=== PATIENT | female | born 1960 | race Caucasian/White ===

== ENCOUNTER 2016-11-30 21:09 | Emergency (ER) | payer MEDICARE, MEDICAID ==
--- NOTE | 2016-11-30 21:15 | ER Document Report ---
ED Medical Screen (RME) - General Stated Complaint: FLU LIKE SYMPTOMS Mode of Arrival: Ambulatory Notes: Patient presents with flulike symptoms for the past 2 days. Patient reports fever, chills, and cough. Patient's son here as a patient as well. hx: Asthma, depression, dyslipidemia I have greeted and performed a rapid initial assessment of this patient. A comprehensive ED assessment and evaluation of the patient, analysis of test results and completion of the medical decision making process will be conducted by additional ED providers. - Related Data Allergies/Adverse Reactions: Penicillins Allergy (Mild, Verified 11/30/16 21:13) Physical Exam - Respiratory Respiratory status: No respiratory distress Breath sounds: Normal
--- NOTE | 2016-12-01 01:07 | ER Document Report ---
ED Flu Like - General Chief Complaint: Flu Symptoms Stated Complaint: FLU LIKE SYMPTOMS Time seen by provider: 01:04 Mode of Arrival: Ambulatory Notes: 56-year-old female presents to ED for flulike symptoms for the past 2 days. She states she's felt like she had a fever but has not taken her temperature. She has had a cough runny nose and sore throat. TRAVEL OUTSIDE OF THE [place] IN LAST 30 DAYS: No - HPI Onset: Other - 2 days Quality of pain: Achy Severity: Moderate Pain Level: 3 Associated symptoms: Body/muscle aches, Chills, Nonproductive cough, Fever, Rhinnorhea, Sinus pain/drainage Similar symptoms previously: Yes Recently seen / treated by doctor: No - Related Data Allergies/Adverse Reactions: Penicillins Allergy (Mild, Verified 11/30/16 21:21) Past Medical History - General Information source: Patient - Social History Smoking Status: Former Smoker Cigarette use (# per day): No Chew tobacco use (# tins/day): No Smoking Education Provided: No Frequency of alcohol use: None Drug Abuse: None Occupation: no Lives with: Other - Some Family History: Arthritis, CAD, CVA, DM, Hyperlipidemia, Hypertension, Malignancy Patient has suicidal ideation: No Patient has homicidal ideation: No - Past Medical History Cardiac Medical History: Reports: Hx Hypercholesterolemia, Hx Hypertension Pulmonary Medical History: Reports: Hx Asthma, Hx Bronchitis EENT Medical History: Reports: None Neurological Medical History: Reports: None Endocrine Medical History: Reports: Other - Thyroid cancer and thyroid removed Renal/ Medical History: Reports: None Malignancy Medical History: Reports: Other - Thyroid GI Medical History: Reports: Hx Irritable Bowel, Hx Colonoscopy, Hx Endoscopy Musculoskeltal Medical History: Reports Hx Arthritis, Reports Hx Musculoskeletal Trauma - Fractured nose, Reports Other - Osteoporosis Skin Medical History: Reports None Psychiatric Medical History: Reports: Hx Anxiety, Hx Depression Traumatic Medical History: Reports: Hx Fractures - Nose Infectious Medical History: Reports: None Past Surgical History: Reports: Hx Section, Hx Tubal Ligation Review of Systems - Review of Systems Constitutional: Fever, Recent illness EENT: Nose discharge, Sinus discharge Cardiovascular: No symptoms reported Respiratory: Cough Gastrointestinal: No symptoms reported Genitourinary: No symptoms reported Female Genitourinary: No symptoms reported Musculoskeletal: No symptoms reported Skin: No symptoms reported Hematologic/Lymphatic: No symptoms reported Neurological/Psychological: No symptoms reported Physical Exam - Vital signs Vitals: Temp Pulse Resp BP Pulse Ox 97.5 F 85 20 104/66 98 11/30/16 21:16 11/30/16 21:16 11/30/16 21:16 11/30/16 21:16 11/30/16 21:16 Interpretation: Normal - General General appearance: Appears well, Alert - HEENT Head: Normocephalic, Atraumatic Eyes: Normal Pupils: PERRL Ears: Normal External canal: Normal Tympanic membrane: Normal Sinus: Normal Nasal: Purulent discharge, Swelling Mouth/Lips: Normal Mucous membranes: Normal Pharynx: Post nasal drainage Neck: Normal - Respiratory Respiratory status: No respiratory distress Chest status: Nontender Breath sounds: Nonproductive cough Chest palpation: Normal - Cardiovascular Rhythm: Regular Heart sounds: Normal auscultation Murmur: No - Abdominal Inspection: Normal Distension: No distension Bowel sounds: Normal Tenderness: Nontender Organomegaly: No organomegaly - Back Back: Normal, Nontender - Extremities General upper extremity: Normal inspection, Nontender, Normal color, Normal ROM , Normal temperature General lower extremity: Normal inspection, Nontender, Normal color, Normal ROM , Normal temperature, Normal weight bearing. No: Aguila's sign - Neurological Neuro grossly intact: Yes Cognition: Normal Orientation: AAOx4 [place] Coma Scale Eye Opening: Spontaneous Lul Coma Scale Verbal: Oriented [place] Coma Scale Motor: Obeys Commands [place] Coma Scale Total: 15 Speech: Normal Motor strength normal: LUE, RUE, LLE, RLE Sensory: Normal - Psychological Associated symptoms: Normal affect, Normal mood - Skin Skin Temperature: Warm Skin Moisture: Dry Skin Color: Normal Course - Re-evaluation Re-evalutation: 12/01/16 07:26 Assessment consistent with upper respiratory infection. Patient instructed to use all her Motrin and Coricidin for her cough - Vital Signs Vital signs: Temp Pulse Resp BP Pulse Ox 97.7 F 77 17 110/77 100 12/01/16 01:34 12/01/16 01:34 12/01/16 01:34 12/01/16 01:34 12/01/16 01:34 Discharge - Discharge Clinical Impression: Upper respiratory infection Qualifiers: URI type: unspecified URI Qualified Code(s): J06.9 - Acute upper respiratory infection, unspecified Condition: Stable Disposition: HOME, SELF-CARE Additional Instructions: UPPER RESPIRATORY ILLNESS: You have a viral infection of the respiratory passages -- a "cold." This common infection causes nasal congestion, drainage, and often sore throat and cough. It is highly contagious. The disease usually lasts about 10 to 14 days. There is no "cure" for the viral infection -- it must run its course. If there is a complication, such as bacterial infection in the nose, sinuses, middle ear, or bronchial tubes, antibiotics may be required. The antibiotics won't affect the virus. Drink plenty of fluids. A humidifier may help. An expectorant medication or decongestant may make you more comfortable. Use acetaminophen or ibuprofen for fever or aches. See the doctor if fever persists over two days, if there is any significant worsening of your symptoms, or if you simply fail to improve as expected. DECONGESTANT MEDICATION: A decongestant medicine has been suggested. Often this medicine is combined in the same tablet with an antihistamine or expectorant. This type of medicine is helpful in treating a bad cold or sinus condition, as well as in treatment of the nasal congestion of hay fever. It is not of much benefit for lung infections. Decongestant medicines are related to stimulants. They can cause an increase in blood pressure and heart rate. Persons with heart disease and high blood pressure should not take decongestants without discussing this with the physician. If you develop palpitations, chest pain, headache, or tremors, stop the medicine and consult your physician. COUGH-SUPPRESSANT & EXPECTORANT MEDICATION: You are to use a cough medication as needed for relief of symptoms. This medicine is a combination of an expectorant (to make the mucous thinner and more easily "coughed up") and a cough suppressant (to reduce the frequency of coughing). The cough-suppressant medicine is related to narcotics. You may experience mild nausea and sleepiness. Some patients who are very sensitive to narcotics may have stomach pain from this medicine. Taking the medicine with food reduces these side effects. Do not drive or work with machinery until you know how this medicine affects you. The expectorant should have no side effects. Iodine-containing expectorants (such as organidin) should not be taken by persons with active thyroid disease unless approved by your doctor. Call the doctor if you develop shortness of breath, hives, rash, itching, lightheadedness, or severe nausea and vomiting. USE OF ACETAMINOPHEN (Tylenol): Acetaminophen may be taken for pain relief or fever control. It's much safer than aspirin, offering a wider range of "safe" dosages. It is safe during . Some brand names are Tylenol, Panadol, Datril, Anacin 3, Tempra, and Liquiprin. Acetaminophen can be repeated every four hours. The following are maximum recommended dosages: >89 pounds or adults 650 mg to 900 mg Acetaminophen can be repeated every four hours. Maximum dose not to exceed 4000 mg a day. Ibuprofen Ibuprofen is an excellent, safe drug for pain control. In addition, it has potent antiinflammatory effects which are beneficial, especially in the treatment of injuries, arthritis, or tendonitis. It's best to take ibuprofen with food. Persons with ulcer disease or allergy to aspirin should notify their physician of this before taking ibuprofen. Take the medication exactly as prescribed. Don't take additional doses unless instructed to do so by your doctor. If you develop wheezing, shortness of breath, hives, faintness, stomach pain, vomiting, or dark black stools, return for re-evaluation at once. FOLLOW-UP CARE: If you have been referred to a physician for follow-up care, call the physician s office for an appointment as you were instructed or within the next two days. If you experience worsening or a significant change in your symptoms, notify the physician immediately or return to the Emergency Department at any time for re-evaluation. Referrals: BECCA MURCIA MD [Primary Care Provider] - Follow up as needed
[2016-12-01 01:35] VITALS: BP 110/77
== END 2016-12-01 01:33 | disposition home or self-care (01) ==
LOC: ER 21:09
DX: J06.9 Acute upper respiratory infection, unspecified (principal); J02.9 Acute pharyngitis, unspecified; R05 Cough; J34.89 Other specified disorders of nose and nasal sinuses; M79.1 Myalgia; R50.9 Fever, unspecified; J45.909 Unspecified asthma, uncomplicated; I10 Essential (primary) hypertension; Z88.0 Allergy status to penicillin; Z87.891 Personal history of nicotine dependence
CPT/HCPCS: 87070; 87804; 87880; 99283

== ENCOUNTER → 2017-02-05 | Outpatient (CLI) | payer MEDICARE, MEDICAID | LOC: OD 10:35 | PROVIDERS: ATTEND Nurse Practitioner | DX: E87.5 Hyperkalemia (principal) | CPT/HCPCS: 36415; 84132 ==

== ENCOUNTER → 2017-04-01 | Outpatient (CLI) | payer MEDICARE, MEDICAID ==
--- NOTE | 2017-04-07 15:37 | WOMENS IMAGING REPORT ---
EXAM DESCRIPTION: BILAT SCREENING MAMMO W/CAD COMPLETED DATE/TIME: 04/01/2017 11:05 am REASON FOR STUDY: ROUTINE SCREENING; Z12.31 Z12.31 ENCNTR SCREEN MAMMOGRAM FOR MALIGNANT NEOPLASM O F ANN COMPARISON: 04/01/2016 outside films TECHNIQUE: Standard craniocaudal and mediolateral oblique views of each breast recorded using [employer] acquisition. LIMITATIONS: None. FINDINGS: RIGHT BREAST MASSES: No suspicious masses. CALCIFICATIONS: No new or suspicious calcifications. ARCHITECTURAL DISTORTION: None. DEVELOPING DENSITY: None. ASYMMETRY: None noted. OTHER: No other significant findings. LEFT BREAST MASSES: No suspicious masses. CALCIFICATIONS: No new or suspicious calcifications. ARCHITECTURAL DISTORTION: None. DEVELOPING DENSITY: On left breast MLO view only, at the level of the nipple in the deep left breast near the pectoralis muscle, a 3 mm density is present which could represent superimposed shadows rath er than a true parenchymal nodule. No corresponding lesion on the CC view. Follow-up diagnostic boris ging with left breast 90 mediolateral view and left breast tomosynthesis in the CC and MLO orientati ons is recommended. If this finding persists, then ultrasound would be required for followup ASYMMETRY: None noted. OTHER: No other significant findings. Read with the assistance of CAD. .[facility] - R2 Cenova Version 1.3 .[facility] Imaging - R2 Cenova Version 1.3 .[facility] Imaging - R2 Cenova Version 2.4 .[facility] [place] - R2 Cenova Version 2.4 .[facility] - R2 [employer] Version 9.2 IMPRESSION: Left breast nodule versus superimposed shadows MLO view only for which left breast diagn ostic tomosynthesis and possible ultrasound recommended. No mammographic evidence for malignancy right breast BREAST DENSITY: b. There are scattered areas of fibroglandular density. BIRAD: 0 Incomplete: Needs Additional Imaging Evaluation and/or prior Mammograms for Comparison. RECOMMENDATION: RECOMMENDED FOLLOW-UP: Left breast diagnostic tomosynthesis and ultrasound The patient will be contacted for additional imaging. COMMENT: The patient has been notified of the results by letter per SA requirements. Additional no tification policies are in place for contacting patient with suspicious or incomplete findings. Quality ID #[id number]: The [employer] recommends an annual screening mammogram for women aged 40 years or over. This facility utilizes a reminder system to ensure that all patients receive reminder letters, and/or direct phone calls for appointments. This includes reminders for routine scr eening mammograms, diagnostic mammograms, or other Breast Imaging Interventions when appropriate. Th is patient will be placed in the appropriate reminder system. The [employer] (ACR) has developed recommendations for screening MRI of the breast s in certain patient populations, to be used in conjunction with mammography. Breast MRI surveillanc e may be appropriate for women with more than 20% lifetime risk of developing breast cancer as deter mined by genetic testing, significant family history of the disease, or history of mantle radiation f or Hodgkins Disease. ACR Practice Guidelines 2008. TECHNICAL DOCUMENTATION: FINDING NUMBER: (1) ASSESSMENT: (1) JOB ID: [id number] [employer]- All Rights Reserved
== END ==
LOC: WI 11:01
PROVIDERS: ATTEND Family Medicine
DX: Z12.31 Encounter for screening mammogram for malignant neoplasm of breast (principal)
CPT/HCPCS: 77067; G0202

== ENCOUNTER → 2017-04-22 | Outpatient (CLI) | payer MEDICARE, MEDICAID ==
--- NOTE | 2017-04-22 17:25 | WOMENS IMAGING REPORT ---
EXAM DESCRIPTION: LEFT DIAGNOSTIC MAMMO W/CAD COMPLETED DATE/TIME: 04/22/2017 1:31 pm REASON FOR STUDY: N63, BREAST LUMP N63 UNSPECIFIED LUMP IN BREAST COMPARISON: Left breast mammograms 04/01/2017 TECHNIQUE: Left breast cone compression in the mediolateral view, left whole breast 90 mediolateral view, left breast MLO and CC tomosynthesis views were obtained. LIMITATIONS: None. FINDINGS: BREAST: Left MASSES: No suspicious masses. Specifically, nodule versus superimposed shadows seen left breast MLO view only 04/01/2017 is no longer identified. CALCIFICATIONS: No new or suspicious calcifications. ARCHITECTURAL DISTORTION: None. DEVELOPING DENSITY: None. ASYMMETRY: None noted. OTHER: No other significant findings. IMPRESSION: No mammographic evidence for malignancy left breast BREAST DENSITY: b. There are scattered areas of fibroglandular density. BIRAD: 1 Negative. RECOMMENDATION: RECOMMENDED FOLLOW UP: Please continue yearly tomosynthesis in March 2018 SPECIFIC INTERVENTION/IMAGING/CONSULTATION RECOMMENDED:No additional intervention/ imaging/consultati on needed at this time. COMMUNICATION:Patient notified by letter COMMENT: The patient has been notified of the results by letter per MQSA requirements. Additional no tification policies are in place for contacting patient with suspicious or incomplete findings. Quality ID #[id number]: The [employer] recommends an annual screening mammogram for women aged 40 years or over. This facility utilizes a reminder system to ensure that all patients receive reminder letters, and/or direct phone calls for appointments. This includes reminders for routine scr eening mammograms, diagnostic mammograms, or other Breast Imaging Interventions when appropriate. Th is patient will be placed in the appropriate reminder system. The [employer] (ACR) has developed recommendations for screening MRI of the breast s in certain patient populations, to be used in conjunction with mammography. Breast MRI surveillanc e may be appropriate for women with more than 20% lifetime risk of developing breast cancer as deter mined by genetic testing, significant family history of the disease, or history of mantle radiation f or Hodgkins Disease. ACR Practice Guidelines 2008. DBT Technology DBT is a type of tomographic mammography. With conventional mammography, overlapping breast tissue ma y make lesions difficult to detect, even with good compression. DBT uses an x-ray tube that rotates a round the breast, taking images at different angles. These images are then combined to create thin sl ices of the breast that the radiologist can view as a 3D reconstruction. The [employer]ologic unit can perform full-field digital mammograms (2D imaging); or DBT (3D imaging); or both, in a combination mode that quickly performs both the mammogram and the tomosynthesis scan while the breast is still compressed. PQRS 6045F: Fluoroscopic imaging is not utilized for breast tomosynthesis. TECHNICAL DOCUMENTATION: FINDING NUMBER: (1) ASSESSMENT: (1) JOB ID: [id number] [employer]- All Rights Reserved
== END ==
LOC: WI 13:26
PROVIDERS: ATTEND Family Medicine
DX: N63 Unspecified lump in breast (principal)
CPT/HCPCS: G0206-52

== ENCOUNTER → 2017-10-06 | Outpatient (CLI) | payer MEDICARE, MEDICAID ==
--- NOTE | 2017-10-06 11:28 | WOMENS IMAGING REPORT ---
EXAM DESCRIPTION: BONE DENSITY HIP/SPINE COMPLETED DATE/TIME: 10/06/2017 10:56 am REASON FOR STUDY: OSTEOPOROSIS M81.0 AGE-RELATED OSTEOPOROSIS W/O CURRENT PATHOLOGICAL FRAC COMPARISON: None. TECHNIQUE: Dual-Energy X-ray Absorptiometry (DEXA) of the AP Spine and Hip. LIMITATIONS: None. FINDINGS: LUMBAR SPINE: The bone mineral density (BMD) measured from L1-L4 in the AP projection correlates with a T-score of -2.6, which is osteoporosis as defined by the World Health Organization. HIP: The bone mineral density (BMD) measured in the left hip correlates with a T-score of -3.5, which is o steoporosis as defined by the World Health Organization. IMPRESSION: 1. LUMBAR SPINE: OSTEOPOROSIS. 2. HIP: OSTEOPOROSIS. COMMENT: The World Health Organization defines low BMD as follows: T-score: Normal: Greater than -1.0 Osteopenia: Between -1.0 and -2.5 Osteoporosis: Less than -2.5 without fractures Established osteoporosis: Less than -2.5 with fractures In general, you may wish to consider: Diagnosis Treatment Follow-up DEXA Normal BMD Prevention 2-3 years Osteopenia Prevention/Therapy 1-2 years Osteoporosis Therapy Yearly TECHNICAL DOCUMENTATION: JOB ID: [id number]- All Rights Reserved
== END ==
LOC: WI 09:10
PROVIDERS: ATTEND Nurse Practitioner Family
DX: M81.0 Age-related osteoporosis without current pathological fracture (principal)
CPT/HCPCS: 77080

== ENCOUNTER → 2018-04-03 | Outpatient (CLI) | payer MEDICARE, MEDICAID ==
--- NOTE | 2018-04-03 15:36 | WOMENS IMAGING REPORT ---
EXAM DESCRIPTION: 3D SCREENING MAMMO BILAT COMPLETED DATE/TIME: 04/03/2018 12:55 pm REASON FOR STUDY: ROUTINE SCREENING;Z12.31 Z12.31 ENCNTR SCREEN MAMMOGRAM FOR MALIGNANT NEOPLASM OF ANN COMPARISON: 04/01/2017. TECHNIQUE: Standard craniocaudal and mediolateral oblique views of each breast recorded using digita l acquisition and breast tomosynthesis. LIMITATIONS: None. FINDINGS: No masses, calcifications or architectural distortion. No areas of suspicion. Read with the assistance of CAD. .[facility] - R2 Cenova Version 1.3 .[facility] Imaging - R2 Cenova Version 1.[address] .[facility] Imaging - R2 Cenova Version 2.4 .[facility] R2 Cenova Version 2.4 .[facility] - R2 [employer] Version 9.2 IMPRESSION: NORMAL MAMMOGRAM. BIRADS 1. BREAST DENSITY: a. The breasts are almost entirely fatty. BIRAD: 1 NEGATIVE RECOMMENDATION: ROUTINE SCREENING COMMENT: The patient has been notified of the results by letter per SA requirements. Additional no tification policies are in place for contacting patient with suspicious or incomplete findings. Quality ID #[id number]: The [employer] recommends an annual screening mammogram for women aged 40 years or over. This facility utilizes a reminder system to ensure that all patients receive reminder letters, and/or direct phone calls for appointments. This includes reminders for routine scr eening mammograms, diagnostic mammograms, or other Breast Imaging Interventions when appropriate. Th is patient will be placed in the appropriate reminder system. The [employer] (ACR) has developed recommendations for screening MRI of the breast s in certain patient populations, to be used in conjunction with mammography. Breast MRI surveillanc e may be appropriate for women with more than 20% lifetime risk of developing breast cancer as deter mined by genetic testing, significant family history of the disease, or history of mantle radiation f or Hodgkins Disease. ACR Practice Guidelines 2008. DBT Technology DBT is a type of tomographic mammography. With conventional mammography, overlapping breast tissue ma y make lesions difficult to detect, even with good compression. DBT uses an x-ray tube that rotates a round the breast, taking images at different angles. These images are then combined to create thin sl ices of the breast that the radiologist can view as a 3D reconstruction. The [employer] unit can perform full-field digital mammograms (2D imaging); or DBT (3D imaging); or both, in a combination mode that quickly performs both the mammogram and the tomosynthesis scan while the breast is still compressed. PQRS 6045F: Fluoroscopic imaging is not utilized for breast tomosynthesis. TECHNICAL DOCUMENTATION: FINDING NUMBER: (1) ASSESSMENT: (1) JOB ID: [id number] [employer]- All Rights Reserved Reading location - IP/workstation name: [facility]
== END ==
LOC: WI 12:46
PROVIDERS: ATTEND Nurse Practitioner Community Health
DX: Z12.31 Encounter for screening mammogram for malignant neoplasm of breast (principal)
CPT/HCPCS: 77063; 77067

== ENCOUNTER 2018-05-28 00:44 | Emergency (ER) | payer MEDICARE, MEDICAID ==
--- NOTE | 2018-05-28 04:04 | RADIOLOGY REPORT (SQ) ---
EXAM DESCRIPTION: XR CHEST 2 VIEWS COMPLETED DATE/TME: 05/28/2018 03:02 CLINICAL HISTORY: 57 years, Female, cough COMPARISON: None. NUMBER OF VIEWS: Two TECHNIQUE: Two views of the chest LIMITATIONS: None. FINDINGS: The lungs are clear. The heart is normal in size. There is no pneumothorax or pleural effusion. There is no acute fracture IMPRESSION: No acute cardiopulmonary abnormality 2010 [employer]- All Rights Reserved
--- NOTE | 2018-05-28 04:47 | ER Document Report ---
ED General - General Chief Complaint: Cough Stated Complaint: SHORT OF BREATH Time Seen by Provider: 05/28/18 02:45 Notes: Patient is a 57-year-old female presents with complaint of mold exposure. She says she has a sore throat and has been coughing. She does have history of asthma. She did use her inhaler. She does not take any allergy medications. She says that she has had a section 8 housing apartment and there is mold in the bathroom and underneath the sink. The auto inspector came to the house and also said there is a lot of mold and they are following the report. No fevers. No other complaints at this time. TRAVEL OUTSIDE OF THE [place] IN LAST 30 DAYS: No - Related Data Allergies/Adverse Reactions: Penicillins Allergy (Mild, Verified 11/30/16 21:21) Past Medical History - Social History Smoking Status: Never Smoker Chew tobacco use (# tins/day): No Frequency of alcohol use: None Drug Abuse: None Family History: Arthritis, CAD, CVA, DM, Hyperlipidemia, Hypertension, Malignancy Patient has suicidal ideation: No Patient has homicidal ideation: No - Past Medical History Cardiac Medical History: Reports: Hx Hypercholesterolemia, Hx Hypertension Pulmonary Medical History: Reports: Hx Asthma, Hx Bronchitis Renal/ Medical History: Denies: Hx Peritoneal Dialysis GI Medical History: Reports: Hx Irritable Bowel, Hx Colonoscopy, Hx Endoscopy Musculoskeletal Medical History: Reports Hx Arthritis, Reports Hx Musculoskeletal Trauma - Fractured nose Psychiatric Medical History: Reports: Hx Anxiety, Hx Depression Traumatic Medical History: Reports: Hx Fractures - Nose Past Surgical History: Reports: Hx Section - x3, Hx Thyroid Surgery, Hx Tubal Ligation Review of Systems - Review of Systems Notes: My Normal Review Basic REVIEW OF SYSTEMS: CONSTITUTIONAL : Denies fever, chills, or sweats. Denies recent illness. EENT: Sore throat CARDIOVASCULAR: Denies chest pain. RESPIRATORY: Cough GASTROINTESTINAL: Denies abdominal pain. Denies nausea, vomiting, or diarrhea. Denies constipation. Last BM: NEUROLOGICAL: Denies altered mental status or loss of consciousness. Denies headache. Denies weakness or paralysis or loss of use of either side. Denies problems with gait or speech. Denies sensory or motor loss. ALL OTHER SYSTEMS REVIEWED AND NEGATIVE. Physical Exam - Vital signs Vitals: Pulse Resp BP Pulse Ox 85 20 115/80 96 05/28/18 00:52 05/28/18 00:52 05/28/18 00:52 05/28/18 00:52 - Notes Notes: General Appearance: Well nourished, alert, cooperative, no acute distress, no obvious discomfort. Well appearing. Vitals: reviewed, See vital signs table. Head: no swelling or tenderness to the head Eyes: PERRL, EOMI, Conjuctiva clear Mouth: No decreasd moisture Throat: No tonsillar inflammation, No airway obstruction, No lymphadenopathy Lungs: No wheezing, No rales, No rhonci, No accessory muscle use, good air exchange bilaterally. Heart: Normal rate, Regular rythm, No murmur, no rub Abdomen: Normal BS, soft, No rigidity, No abdominal tenderness, No guarding, no rebound, no abdominal masses, no organomegaly Extremities: good pulses in all extremities, no edema Skin: warm, dry, appropriate color, no rash Neuro: speech clear, oriented x 3, normal affect, responds appropriately to questions. Course - Re-evaluation Re-evalutation: 05/28/18 07:08 I do not see any concerning findings on exam. Patient's vital signs are normal. Her lung roberts are clear. Throat exam is normal appearing. Patient says she can go to her son's house to shower and stay with the mold. Encourage her to do that as to good idea until the problem with house gets fixed. I encourage her return to ER if she has fevers, difficulty breathing, vomiting, or feels unwell. I informed her if she does stay in her house that she should wear a mask. Being that she is an asthmatic also encouraged her to take an daily [id number] allergy medication such as loratadine. Dictation of this chart was performed using voice recognition software; therefore, there may be some unintended grammatical errors. - Vital Signs Vital signs: Temp Pulse Resp BP Pulse Ox 85 22 H 121/54 L 100 05/28/18 00:52 05/28/18 05:05 05/28/18 05:05 05/28/18 05:05 - EKG Interpretation by Me Additional EKG results interpreted by me: 05/28/18 05:08 EKG is reviewed and interpreted by me. EKG shows sinus rhythm with rate of [address] segment elevation or depression. No ischemic T-wave inversions. WI interval, QRS duration, QTc intervals are within normal range. Old EKG for comparison comparison is not available at this time. Discharge - Discharge Clinical Impression: Cough, Sore throat Condition: Good Disposition: HOME, SELF-CARE Additional Instructions: Please wear a mask when in your house. Please see about staying n a different apartment and try to avoid the areas of your house that have the mold. Please return to the ER immediately if you have fevers, coughing up blood, difficulty breathing, or feel that you are worsening in any way. Please take over the counter Loratadine daily. Referrals: SAMARIA RASMUSSEN MD [Primary Care Provider] - 05/30/18
[2018-05-28 05:09] VITALS: BP 121/54
== END 2018-05-28 05:08 | disposition home or self-care (01) ==
LOC: ER 00:44
DX: J02.9 Acute pharyngitis, unspecified (principal); R06.02 Shortness of breath; R05 Cough; E78.00 Pure hypercholesterolemia, unspecified; I10 Essential (primary) hypertension; Z98.51 Tubal ligation status
CPT/HCPCS: 71046; 99283

== ENCOUNTER 2018-05-28 14:09 | Emergency (ER) | payer MEDICARE, MEDICAID ==
[2018-05-28] MEDS ORDERED: IPRATROPIUM/ALBUTEROL 0.5-2.5 MG/3 ML AMPUL NEB ONE (16:40)
--- NOTE | 2018-05-28 17:11 | ER Document Report ---
HPI - HPI Pain Level: 5 Notes: Patient is a 57-year-old female who presents with chief complaint of asthma exacerbation. Patient reports she was seen here earlier today for the same symptoms and did not receive any treatment. Patient reports she was cleaning her house today using white vinegar when she started feeling short of breath. Patient's son is also in the department with a "exposure to white vinegar". - CONSTITUTIONAL Constitutional: REPORTS: Chills. DENIES: Fever - EENT EENT: REPORTS: Sore Throat. DENIES: Ear Pain, Eye problems - NEURO Neurology: REPORTS: Headache. DENIES: Weakness, Vision blurred, Dizzinesss / Vertigo - CARDIOVASCULAR Cardiovascular: DENIES: Chest pain - RESPIRATORY Respiratory: REPORTS: Trouble Breathing, Coughing - GASTROINTESTINAL Gastrointestinal: DENIES: Abdominal Pain, Black / Bloody Stools - URINARY Urinary: DENIES: Dysuria, Urgency, Frequency - MUSCULOSKELETAL Musculoskeletal: DENIES: Extremity pain Past Medical History - General Information source: Patient - Social History Smoking Status: Unknown if Ever Smoked Chew tobacco use (# tins/day): No Frequency of alcohol use: None Drug Abuse: None Family History: Arthritis, CAD, CVA, DM, Hyperlipidemia, Hypertension, Malignancy Patient has suicidal ideation: No Patient has homicidal ideation: No - Past Medical History Cardiac Medical History: Reports: Hx Hypercholesterolemia, Hx Hypertension Pulmonary Medical History: Reports: Hx Asthma, Hx Bronchitis Neurological Medical History: Reports: Hx Migraine Renal/ Medical History: Denies: Hx Peritoneal Dialysis GI Medical History: Reports: Hx Gastroesophageal Reflux Disease, Hx Irritable Bowel, Hx Colonoscopy, Hx Endoscopy Musculoskeletal Medical History: Reports Hx Arthritis, Reports Hx Musculoskeletal Trauma - Fractured nose Psychiatric Medical History: Reports: Hx Anxiety, Hx Depression Traumatic Medical History: Reports: Hx Fractures - Nose Past Surgical History: Reports: Hx Section - x3, Hx Thyroid Surgery, Hx Tubal Ligation - Immunizations Immunizations up to date: Yes Vertical Provider Document - CONSTITUTIONAL Notes: PHYSICAL EXAMINATION: GENERAL: Well-appearing, well-nourished and in no acute distress. HEAD: Atraumatic, normocephalic. EYES: Pupils equal round and reactive to light, extraocular movements intact, conjunctiva are normal. ENT: Nares patent, oropharynx clear without exudates. Moist mucous membranes. NECK: Normal range of motion, supple without lymphadenopathy LUNGS: Breath sounds clear to auscultation bilaterally and equal. No wheezes rales or rhonchi. HEART: Regular rate and rhythm without murmurs ABDOMEN: Soft, nontender, nondistended abdomen. No guarding, no rebound. No masses appreciated. Female : deferred Musculoskeletal: Normal range of motion, no pitting or edema. No cyanosis. NEUROLOGICAL: Cranial nerves grossly intact. Normal speech, normal gait. Normal sensory, motor exams PSYCH: Normal mood, normal affect. SKIN: Warm, Dry, normal turgor, no rashes or lesions noted. - INFECTION CONTROL TRAVEL OUTSIDE OF THE [place] IN LAST 30 DAYS: No Course - Re-evaluation Re-evalutation: Patient's physical exam is completely unremarkable although patient is very concerned that she is wheezing. Patient will be given a DuoNeb prior to discharge. Explained to patient that there is no harm with using white vinegar for cleaning. Encourage patient to do her cleaning any well ventilated area if it is irritating to her. Patient reports that she feels better after receiving the DuoNeb. Patient will be discharged home in stable condition. Vital signs are all unremarkable. - Vital Signs Vital signs: Temp Pulse Resp BP Pulse Ox 111 H 24 H 107/63 95 05/28/18 14:17 05/28/18 14:17 05/28/18 14:17 05/28/18 14:17 Discharge - Discharge Clinical Impression: Shortness of breath Condition: Stable Disposition: HOME, SELF-CARE Additional Instructions: Please be sure to clean your home in an open and well ventilated area. The white vinegar that you are using to clean your home should not cause any harmful or toxic symptoms. Please be sure to use your inhaler as directed. Follow up with your primary care provider in the next 2-3 days for a follow-up. Referrals: SAMARIA RASMUSSEN MD [Primary Care Provider] - Follow up as needed
[2018-05-28 17:27] VITALS: BP 103/76
== END 2018-05-28 17:27 | disposition home or self-care (01) ==
LOC: ER 14:09
DX: R06.02 Shortness of breath (principal); J45.901 Unspecified asthma with (acute) exacerbation; E78.00 Pure hypercholesterolemia, unspecified; I10 Essential (primary) hypertension; Z98.51 Tubal ligation status
CPT/HCPCS: 94640; 99284; A9270; J7620

== ENCOUNTER 2018-08-21 16:22 | Inpatient (IN) | payer MEDICARE, MEDICAID ==
[2018-08-21] MEDS ORDERED: NORMAL SALINE 1000 ML 1,000 ML IV ONE ×2 (17:07→22:48)
--- NOTE | 2018-08-21 17:10 | ER Document Report ---
ED Medical Screen (RME) - General Chief Complaint: Abdominal Pain Stated Complaint: ABDOMINAL PAIN Time Seen by Provider: 08/21/18 17:04 Notes: This 57-year-old female patient comes emergency room complaining of abdominal pain with nausea. She states she had a little pain last night a lot of pain today. Her last bowel movement was on Tuesday. She does have IBS of the constipation type. She complains of cramping discomfort. Brief exam shows the abdomen is soft with positive bowel sounds and is tender in the right and left upper quadrant in the left lower quadrant. There is no guarding. The skin is clammy and the patient is hypotensive and tachycardic. Phone call was made to the charge nurse for expedited transfer to the main ED for fluid resuscitation. I have greeted and performed a rapid initial assessment of this patient. A comprehensive ED assessment and evaluation of the patient, analysis of test results and completion of the medical decision making process will be conducted by additional ED providers. TRAVEL OUTSIDE OF THE [place] IN LAST 30 DAYS: No - Related Data Allergies/Adverse Reactions: Penicillins Allergy (Mild, Verified 05/28/18 14:10) Past Medical History - Past Medical History Cardiac Medical History: Reports: Hx Hypercholesterolemia, Hx Hypertension Pulmonary Medical History: Reports: Hx Asthma, Hx Bronchitis Neurological Medical History: Reports: Hx Migraine Renal/ Medical History: Denies: Hx Peritoneal Dialysis GI Medical History: Reports: Hx Gastroesophageal Reflux Disease, Hx Irritable Bowel, Hx Colonoscopy, Hx Endoscopy Musculoskeltal Medical History: Reports Hx Arthritis, Reports Hx Musculoskeletal Trauma - Fractured nose Psychiatric Medical History: Reports: Hx Anxiety, Hx Depression Traumatic Medical History: Reports: Hx Fractures - Nose Past Surgical History: Reports: Hx Section - x3, Hx Thyroid Surgery, Hx Tubal Ligation - Immunizations Immunizations up to date: Yes Physical Exam - Vital signs Vitals: Temp Pulse Resp BP Pulse Ox 98.4 F 111 H 20 92/45 L 98 08/21/18 16:58 08/21/18 16:58 08/21/18 16:58 08/21/18 16:58 08/21/18 16:58 Course - Vital Signs Vital signs: Temp Pulse Resp BP Pulse Ox 98.4 F 111 H 20 92/45 L 98 08/21/18 16:58 08/21/18 16:58 08/21/18 16:58 08/21/18 16:58 08/21/18 16:58 Doctor's Discharge - Discharge Referrals: SAMARIA RASMUSSEN MD [Primary Care Provider] - Follow up as needed
--- NOTE | 2018-08-21 17:46 | ER Document Report ---
ED General - General Chief Complaint: Abdominal Pain Stated Complaint: ABDOMINAL PAIN Time Seen by Provider: 08/21/18 17:04 Mode of Arrival: Ambulatory Information source: Patient Notes: 57-year-old female presents emergency room with complaints of diffuse abdominal pain, nausea, constipation. Patient states that this started last night but worsened today. She states that her last bowel movement was 2 days ago. She does have a history of IBS. She is complaining of diffuse abdominal cramping. She denies any radiation of the pain. She denies any alleviating or exacerbating factors. Patient denies any dysuria, hematuria, melena, hematochezia, vomiting, chest pain, shortness of breath. Patient states that she has had a previously. She denies any other abdominal surgeries. TRAVEL OUTSIDE OF THE [place] IN LAST 30 DAYS: No - HPI Onset: Yesterday Onset/Duration: Gradual Quality of pain: Achy, Cramping Severity: Mild Pain Level: 1 Associated symptoms: Nausea Exacerbated by: Denies Relieved by: Denies Similar symptoms previously: Yes Recently seen / treated by doctor: No - Related Data Allergies/Adverse Reactions: Penicillins Allergy (Mild, Verified 05/28/18 14:10) Past Medical History - General Information source: Patient - Social History Smoking Status: Unknown if Ever Smoked Family History: Arthritis, CAD, CVA, DM, Hyperlipidemia, Hypertension, Malignancy Patient has suicidal ideation: No Patient has homicidal ideation: No - Past Medical History Cardiac Medical History: Reports: Hx Hypercholesterolemia, Hx Hypertension Pulmonary Medical History: Reports: Hx Asthma, Hx Bronchitis Neurological Medical History: Reports: Hx Migraine Renal/ Medical History: Denies: Hx Peritoneal Dialysis GI Medical History: Reports: Hx Gastroesophageal Reflux Disease, Hx Irritable Bowel, Hx Colonoscopy, Hx Endoscopy Musculoskeletal Medical History: Reports Hx Arthritis, Reports Hx Musculoskeletal Trauma - Fractured nose Psychiatric Medical History: Reports: Hx Anxiety, Hx Depression Traumatic Medical History: Reports: Hx Fractures - Nose Past Surgical History: Reports: Hx Section - x3, Hx Thyroid Surgery, Hx Tubal Ligation - Immunizations Immunizations up to date: Yes Review of Systems - Review of Systems Constitutional: No symptoms reported EENT: No symptoms reported Cardiovascular: No symptoms reported Respiratory: No symptoms reported Gastrointestinal: Abdominal pain, Nausea, Constipation Genitourinary: No symptoms reported Female Genitourinary: No symptoms reported Musculoskeletal: No symptoms reported Skin: No symptoms reported Hematologic/Lymphatic: No symptoms reported Neurological/Psychological: No symptoms reported -: Yes All other systems reviewed and negative Physical Exam - Vital signs Vitals: Temp Pulse Resp BP Pulse Ox 98.4 F 111 H 20 92/45 L 98 08/21/18 16:58 08/21/18 16:58 08/21/18 16:58 08/21/18 16:58 08/21/18 16:58 - Notes Notes: PHYSICAL EXAMINATION: GENERAL: Ill-appearing. HEAD: Atraumatic, normocephalic. EYES: Pupils equal round and reactive to light, extraocular movements intact, conjunctiva are normal. ENT: Nares patent, oropharynx clear without exudates. Moist mucous membranes. NECK: Normal range of motion, supple without lymphadenopathy LUNGS: Breath sounds clear to auscultation bilaterally and equal. No wheezes rales or rhonchi. HEART: Tachycardic. S1-S2 appreciated. ABDOMEN: Soft, diffuse tenderness to palpation. No rebound or guarding. Normal active bowel sounds. Female : deferred Musculoskeletal: Normal range of motion, no pitting or edema. No cyanosis. NEUROLOGICAL: Cranial nerves grossly intact. Normal speech, normal gait. Normal sensory, motor exams PSYCH: Normal mood, normal affect. SKIN: Warm, Dry, normal turgor, no rashes or lesions noted. Course - Re-evaluation Re-evalutation: 08/21/18 18:13 EKG: Ventricular rate 68, MA interval 152, QRS duration 80, QTc 400, sinus rhythm. No ST segment elevation. 08/21/18 22:50 Labs and imaging obtained. Troponin and EKG are WNL. WBC is normal. UA shows signs of infection. CT abd/pel was done and is unremarkable. Fluids, zofran given. On re-evaluation, patient continues to by hypotensive, nauseated, and complains of diffuse abdominal pain. Lactic acid normal. Patient says she's allergic to penicillins. Says that she was told she had hives and difficulty breathing. Additional fluids ordered. Levofloxacin ordered. Discussed admission verses discharge with the patient. Patient prefers admission. I contacted the hospitalist for admission. He's agreeable to admit patient. 08/21/18 22:56 - Vital Signs Vital signs: Temp Pulse Resp BP Pulse Ox 98.4 F 59 L 12 94/62 L 97 11/12/18 16:58 08/21/18 22:38 08/21/18 21:01 08/21/18 22:38 08/21/18 21:01 - Laboratory Result Diagrams: 08/21/18 18:04 08/21/18 18:04 Laboratory results interpreted by me: 08/21/18 08/21/18 08/21/18 18:04 18:04 20:28 RDW 14.2 H BUN 27 H Ur Leukocyte Esterase MODERATE H Discharge - Discharge Clinical Impression: Orthostatic hypotension Urinary tract infection Qualifiers: Urinary tract infection type: site unspecified Hematuria presence: without hematuria Qualified Code(s): N39.0 - Urinary tract infection, site not specified Condition: Good Disposition: ADMITTED OBSERVATION Admitting Provider: Hospitalist Unit Admitted: Medical Floor Referrals: SAMARIA RASMUSSEN MD [Primary Care Provider] - Follow up as needed
--- NOTE | 2018-08-21 17:48 | RADIOLOGY REPORT (SQ) ---
EXAM DESCRIPTION: CHEST SINGLE VIEW COMPLETED DATE/TIME: 08/21/2018 5:41 pm REASON FOR STUDY: Abdominal pain, hypotensive, tachycardic COMPARISON: 05/28/2018 EXAM PARAMETERS: NUMBER OF VIEWS: One view. TECHNIQUE: Single frontal radiographic view of the chest acquired. RADIATION DOSE: NA LIMITATIONS: None. FINDINGS: LUNGS AND PLEURA: No opacities, masses or pneumothorax. No pleural effusion. MEDIASTINUM AND HILAR STRUCTURES: No masses. Contour normal. HEART AND VASCULAR STRUCTURES: Heart normal in size. Normal vasculature. BONES: No acute findings. HARDWARE: None in the chest. OTHER: No other significant finding. IMPRESSION: NO ACUTE RADIOGRAPHIC FINDING IN THE CHEST. TECHNICAL DOCUMENTATION: JOB ID: [id number] [employer]- All Rights Reserved Reading location - IP/workstation name: [email or web address]
[2018-08-21 18:16] LABS: ABSOLUTE BASOPHILS # (AUTO) 0.1 10^3/uL (0.0-0.2); ABSOLUTE EOSINOPHILS # (AUTO) 0.2 10^3/uL (0.0-0.6); ABSOLUTE LYMPHOCYTES (AUTO) 1.6 10^3/uL (0.5-4.7); ABSOLUTE MONOCYTES (AUTO) 0.9 10^3/uL (0.1-1.4); BASOPHILS % (AUTO) 0.6 % (0-2); EOSINOPHILS % (AUTO) 2.4 % (0-6); HEMATOCRIT 38.6 % (36.0-47.0); HEMOGLOBIN 13.4 g/dL (12.0-15.5); MEAN CORPUSCULAR HEMOGLOBIN 29.1 pg (27.0-33.4); MEAN CORPUSCULAR HGB CONC 34.6 g/dL (32.0-36.0); MEAN CORPUSCULAR VOLUME 84 fl (80-97); MONOCYTES % (AUTO) 9.2 % (3-13); PLATELET COUNT 238 10^3/uL (150-450); RED BLOOD COUNT 4.59 10^6/uL (3.72-5.28); RED CELL DISTRIBUTION WIDTH 14.2 % (11.5-14.0); SEGMENTED NEUTROPHILS % (AUTO) 71.8 % (42-78); TOTAL CELLS COUNTED % (AUTO) 100 %; WHITE BLOOD COUNT 9.8 10^3/uL (4.0-10.5)
[2018-08-21 18:39] LABS: ALANINE AMINOTRANSFERASE 17 U/L (9-52); ALBUMIN 4.1 g/dL (3.5-5.0); ALKALINE PHOSPHATASE 55 U/L (38-126); ANION GAP 11 (5-19); ASPARTATE AMINO TRANSFERASE 22 U/L (14-36); BILIRUBIN,DIRECT 0.4 mg/dL (0.0-0.4); BILIRUBIN,TOTAL 0.6 mg/dL (0.2-1.3); BLOOD UREA NITROGEN 27 mg/dL (7-20); CALCIUM 10.1 mg/dL (8.4-10.2); CARBON DIOXIDE 29 mmol/L (22-30); CHLORIDE 101 mmol/L (98-107); CREATINE KINASE 31 U/L (30-135); GLUCOSE 108 mg/dL (75-110); POTASSIUM 3.7 mmol/L (3.6-5.0); SODIUM 141.2 mmol/L (137-145); TOTAL PROTEIN 6.7 g/dL (6.3-8.2)
[2018-08-21 18:51] LABS: CREATINE KINASE MB 0.49 ng/mL (<4.55)
[2018-08-21 18:53] LABS: TROPONIN I < 0.012 ng/mL
--- NOTE | 2018-08-21 19:56 | RADIOLOGY REPORT (SQ) ---
EXAM DESCRIPTION: CT ABD/PELVIS WITH IV ONLY COMPLETED DATE/TIME: 08/21/2018 7:36 pm REASON FOR STUDY: diffuse abdominal pain COMPARISON: None. TECHNIQUE: CT scan of the abdomen and pelvis performed using helical scanning technique with dynamic intravenous contrast injection. No oral contrast. Images reviewed with lung, soft tissue, and bone windows. Reconstructed coronal and sagittal MPR images reviewed. Delayed images for evaluation of the urinary system also acquired. All images stored on PACS. All CT scanners at this facility use dose modulation, iterative reconstruction, and/or weight based d osing when appropriate to reduce radiation dose to as low as reasonably achievable (ALARA). [facility]: Dose Right [facility]: CareDose [facility]: Dose Right [facility]: Teradose 4D [facility]: Noxilizer CONTRAST TYPE AND DOSE: contrast/concentration: Isovue 350.00 mg/ml; Total Contrast Delivered: 79.0 ml; Total Saline Delivered: 61.0 ml RENAL FUNCTION: BUN 27 creatinine 0.8 RADIATION DOSE: CT Rad equipment meets quality standard of care and radiation dose reduction techniq ues were employed. CTDIvol: 18.0 - 23.1 mGy. DLP: 2072 mGy-cm.. LIMITATIONS: None. FINDINGS: LOWER CHEST: No significant findings. No nodules or infiltrates. LIVER: Normal size. No masses. No dilated ducts. SPLEEN: Normal size. No focal lesions. PANCREAS: No masses. No significant calcifications. No adjacent inflammation or peripancreatic fluid collections. Pancreatic duct not dilated. GALLBLADDER: No identified stones by CT criteria. No inflammatory changes to suggest cholecystitis. ADRENAL GLANDS: No significant masses or asymmetry. RIGHT KIDNEY AND URETER: No solid masses. No significant calcifications. No hydronephrosis or hyd roureter. LEFT KIDNEY AND URETER: No solid masses. No significant calcifications. No hydronephrosis or hydr oureter. AORTA AND VESSELS: No aneurysm. No dissection. Renal arteries, SMA, celiac without stenosis. RETROPERITONEUM: No retroperitoneal adenopathy, hemorrhage or masses. BOWEL AND PERITONEAL CAVITY: No masses or inflammatory changes. No free fluid or peritoneal masses. APPENDIX: Not identified. No pericecal inflammatory changes are present. PELVIS: No mass. No free fluid. Normal bladder. ABDOMINAL WALL: No masses. No hernias. BONES: No significant or acute findings. OTHER: No other significant finding. IMPRESSION: NO SIGNIFICANT OR ACUTE FINDING IN THE ABDOMEN OR PELVIS ON CT SCAN WITH IV CONTRAST. TECHNICAL DOCUMENTATION: JOB ID: [id number] Quality ID # [id number]: Final reports with documentation of one or more dose reduction techniques (e.g., Au tomated exposure control, adjustment of the mA and/or kV according to patient size, use of iterative reconstruction technique) 2010 [employer]- All Rights Reserved Reading location - IP/workstation name: [email or web address]
--- NOTE | 2018-08-21 20:11 | EKG REPORT ---
SEVERITY:- NORMAL ECG - SINUS RHYTHM : Confirmed by: Fabio Sims 21-Aug-2018 20:10:24
[2018-08-21] MEDS ORDERED: NORMAL SALINE 250 ML IV ONE (20:19)
[2018-08-21 22:08] LABS: APPEARANCE,URINE SLIGHTLY-CLOUDY; BILIRUBIN,URINE NEGATIVE (NEGATIVE); COLOR,URINE YELLOW; GLUCOSE, URINE NEGATIVE (NEGATIVE); KETONES,URINE NEGATIVE (NEGATIVE); LEUKOCYTE ESTERASE,URINE MODERATE (NEGATIVE); NITRITE,URINE NEGATIVE (NEGATIVE); PROTEIN,URINE NEGATIVE (NEGATIVE); URINE SPECIFIC GRAVITY 1.033; UROBILINOGEN,URINE NEGATIVE mg/dL (<2.0)
[2018-08-21] MEDS ORDERED: ONDANSETRON HCL INJ/PF 4 MG/2 ML SDV IV ONE (22:25)
[2018-08-21] MEDS ORDERED: LEVOFLOXACIN 750 MG/D5W RTU 750 MG/150 ML RTUPB IV ONE (22:45)
[2018-08-21] MEDS ORDERED: ACETAMINOPHEN 325 MG TABLET PO PRN (22:58)
[2018-08-21] MEDS ORDERED: MAG HYDROX/AL HYDROX/SIMETH SUSP 30 ML UDCUP PO PRN (22:58)
[2018-08-22] MEDS ORDERED: NORMAL SALINE 1000 ML 1,000 ML IV ONE (00:18)
[2018-08-22] MEDS ORDERED: NALOXONE HCL INJ/PF 0.4 MG/1 ML SDV IV ONE (00:19)
[2018-08-22 00:55] LABS: URINE AMPHETAMINES SCREEN NEGATIVE; URINE BARBITURATES SCREEN NEGATIVE; URINE BENZODIAZEPINES SCREEN NEGATIVE; URINE COCAINE SCREEN NEGATIVE; URINE MARIJUANA (THC) SCREEN NEGATIVE; URINE METHADONE SCREEN NEGATIVE; URINE PHENCYCLIDINE SCREEN NEGATIVE
[2018-08-22] MEDS ORDERED: NALOXONE HCL INJ 2 MG/2 ML DISP.SYRIN IV ONE (01:44)
[2018-08-22] MEDS ORDERED: VANCOMYCIN HCL 1,000 MG in DEXTROSE 5%-WATER 250 ML IV ONE (01:46)
[2018-08-22] MEDS ORDERED: VANCOMYCIN HCL INJ 1000 MG VIAL IV PRN (01:51)
[2018-08-22] MEDS ORDERED: VANCOMYCIN HCL 0 MG in DEXTROSE 5%-WATER 250 ML IV NR (02:00)
[2018-08-22] MEDS: NORMAL SALINE 1000 ML 1,000 ML IV PRN ×3 (02:25→06:26)
--- NOTE | 2018-08-22 03:54 | PDOC H&P ---
History of Present Illness Admission Date/PCP: 08/21/18 22:53 SAMARIA RASMUSSEN MD Patient complains of: Abdominal pain and constipation History of Present Illness: AIDE STEPHENS is a 57 year old female with a past medical history of hypertension, hypothyroidism and constipation predominant irritable bowel syndrome. Patient presents with 12 hours of crampy abdominal pain associated with constipation. Stating last bowel movement 3 days ago, denying diarrhea, nausea or vomiting. In the emergency room she is found to have hypotension and pyuria but an unremarkable CT abdomen and pelvis. She receives empiric antibiotics, 3 L of colloid without significant improvement in blood pressure remaining orthostatic with systolic blood pressures in the 80s and heart rate in the 60s-70s. Patient she denies recent steroids, antibiotics, urinary tract infection, chest pain or shortness of breath. Past Medical History Cardiac Medical History: Reports: Hyperlipidema, Hypertension Pulmonary Medical History: Reports: Asthma, Bronchitis Neurological Medical History: Reports: Migraine GI Medical History: Reports: Gastroesophageal Reflux Disease Musculoskeltal Medical History: Reports: Arthritis Psychiatric Medical History: Reports: Depression Past Surgical History Past Surgical History: Reports: Section - x3, Tubal Ligation Social History Information Source: Patient Lives with: Alone Smoking Status: Unknown if Ever Smoked Frequency of Alcohol Use: None Drugs: None - Advance Directive Resuscitation Status: Full Code Family History Family History: Arthritis, CAD, CVA, DM, Hyperlipidemia, Hypertension, Malignancy Parental Family History Reviewed: Yes Children Family History Reviewed: Yes Sibling(s) Family History Reviewed.: Yes Medication/Allergy Allergies/Adverse Reactions: Penicillins Allergy (Mild, Verified 05/28/18 14:10) Review of Systems Constitutional: ABSENT: chills, fever(s), headache(s), weight gain, weight loss Eyes: ABSENT: visual disturbances Ears: ABSENT: hearing changes Cardiovascular: ABSENT: chest pain, dyspnea on exertion, edema, orthropnea, palpitations Respiratory: ABSENT: cough, hemoptysis Gastrointestinal: ABSENT: abdominal pain, constipation, diarrhea, hematemesis, hematochezia, nausea, vomiting Genitourinary: ABSENT: dysuria, hematuria Musculoskeletal: ABSENT: joint swelling Integumentary: ABSENT: rash, wounds Neurological: ABSENT: abnormal gait, abnormal speech, confusion, dizziness, focal weakness, syncope Psychiatric: ABSENT: anxiety, depression, homidical ideation, suicidal ideation Endocrine: ABSENT: cold intolerance, heat intolerance, polydipsia, polyuria Hematologic/Lymphatic: ABSENT: easy bleeding, easy bruising Physical Exam Vital Signs: Temp Pulse Resp BP Pulse Ox 97.8 F 59 L 14 75/59 L 93 08/22/18 00:01 08/21/18 22:38 08/22/18 01:01 08/22/18 01:01 08/22/18 01:00 General appearance: PRESENT: no acute distress, well-developed, well-nourished Head exam: PRESENT: atraumatic, normocephalic Eye exam: PRESENT: conjunctiva pink, EOMI, PERRLA, other - Left eyelid lag known to patient. ABSENT: scleral icterus Ear exam: PRESENT: normal external ear exam Mouth exam: PRESENT: moist, tongue midline Neck exam: ABSENT: carotid bruit, JVD, lymphadenopathy, thyromegaly Respiratory exam: PRESENT: clear to auscultation katina. ABSENT: rales, rhonchi, wheezes Cardiovascular exam: PRESENT: RRR. ABSENT: diastolic murmur, rubs, systolic murmur Pulses: PRESENT: normal dorsalis pedis pul Vascular exam: PRESENT: normal capillary refill GI/Abdominal exam: PRESENT: normal bowel sounds, soft. ABSENT: distended, guarding, mass, organolmegaly, rebound, tenderness Rectal exam: PRESENT: deferred Extremities exam: PRESENT: full ROM. ABSENT: calf tenderness, clubbing, pedal edema Neurological exam: PRESENT: alert, awake, oriented to person, oriented to place , oriented to time, oriented to situation, CN II-XII grossly intact. ABSENT: motor sensory deficit Psychiatric exam: PRESENT: appropriate affect, normal mood. ABSENT: homicidal ideation, suicidal ideation Skin exam: PRESENT: dry, intact, warm. ABSENT: cyanosis, rash Results Impressions: Chest X-Ray 08/21/18 17:09 IMPRESSION: NO ACUTE RADIOGRAPHIC FINDING IN THE CHEST. Abdomen/Pelvis CT 08/21/18 17:42 IMPRESSION: NO SIGNIFICANT OR ACUTE FINDING IN THE ABDOMEN OR PELVIS ON CT SCAN WITH IV CONTRAST. Assessment & Plan - Diagnosis (1) Sepsis Is this a current diagnosis for this admission?: Yes Plan: Secondary to urinary tract infection, empiric antibiotics, IV fluid challenge, pressors and Solu-Cortef as needed (2) Orthostatic hypotension Is this a current diagnosis for this admission?: Yes Plan: Follow-up, random cortisol from admission blood sample, Solu-Cortef trial (3) Urinary tract infection Qualifiers: Urinary tract infection type: site unspecified Hematuria presence: without hematuria Qualified Code(s): N39.0 - Urinary tract infection, site not specified Is this a current diagnosis for this admission?: Yes Plan: Empiric antibiotics initiated, follow-up CBC, blood and urine culture - Time Time Spent: 50 to 70 Minutes - Inpatient Certification Medical Necessity: Need Close Monitoring Due to Risk of Patient Decompensation
[2018-08-22 04:15] LABS: ABSOLUTE EOSINOPHILS # (AUTO) 0.2 10^3/uL (0.0-0.6); ABSOLUTE LYMPHOCYTES (AUTO) 1.6 10^3/uL (0.5-4.7); ABSOLUTE MONOCYTES (AUTO) 0.5 10^3/uL (0.1-1.4); ABSOLUTE NEUT (AUTO) 4.5 10^3/uL (1.7-8.2); BASOPHILS % (AUTO) 0.5 % (0-2); EOSINOPHILS % (AUTO) 2.7 % (0-6); HEMATOCRIT 30.1 % (36.0-47.0); LYMPHOCYTES % (AUTO) 23.8 % (13-45); MEAN CORPUSCULAR HEMOGLOBIN 29.4 pg (27.0-33.4); MEAN CORPUSCULAR HGB CONC 34.5 g/dL (32.0-36.0); MEAN CORPUSCULAR VOLUME 85 fl (80-97); MONOCYTES % (AUTO) 7.6 % (3-13); PLATELET COUNT 158 10^3/uL (150-450); RED BLOOD COUNT 3.53 10^6/uL (3.72-5.28); RED CELL DISTRIBUTION WIDTH 14.2 % (11.5-14.0); SEGMENTED NEUTROPHILS % (AUTO) 65.4 % (42-78); TOTAL CELLS COUNTED % (AUTO) 100 %; WHITE BLOOD COUNT 6.8 10^3/uL (4.0-10.5)
[2018-08-22 04:22] LABS: HEMOGLOBIN 10.4 g/dL (12.0-15.5)
[2018-08-22 04:26] LABS: ANION GAP 5 (5-19); BLOOD UREA NITROGEN 16 mg/dL (7-20); CALCIUM 7.5 mg/dL (8.4-10.2); CARBON DIOXIDE 27 mmol/L (22-30); CHLORIDE 108 mmol/L (98-107); GLUCOSE 121 mg/dL (75-110); POTASSIUM 3.3 mmol/L (3.6-5.0); SODIUM 140.4 mmol/L (137-145)
[2018-08-22] MEDS ORDERED: DEXTROSE 5%-WATER 250 ML with NOREPINEPHRINE BITARTRATE 4 MG IV PRN ×2 (05:19)
[2018-08-22] MEDS ORDERED: NOREPINEPHRINE BITARTRATE INJ/PF 4 MG/4 ML SDV IV ONE (05:47)
[2018-08-22] MEDS: POTASSI CL 20 MEQ/50 ML RIDER 20 MEQ/50 ML RTUPB IV SCH ×2 (05:54→08:24)
[2018-08-22] MEDS: HEPARIN SOD (PORCINE) 5,000 UNIT/ML 1 ML SYRINGE SUBCUT SCH ×3 (05:55→21:35)
--- NOTE | 2018-08-22 09:34 | Physician Advisory Note ---
Physician Advisor ProgressNote .: [facility], I have reviewed the medical record for this patient. Physician Advisor Statement: Please consider documenting, if you agree: 1. " shock" (Septic? hypovolemic? cardiogenic? obstrctive? neurogenic ? due to poisoning such as from nitrates/opioids/adrenergic blockers?) 2. "sepsis, evidenced by " (Besides initial tachycardia & profound, resistant hypotension, what other evidence do you see for this dx? STatus: I agree w/IP status. CK
[2018-08-22] MEDS ORDERED: CEFTRIAXONE 1 GM/D5W RTU 1 GM/50 ML RTUPB IV SCH (10:00)
[2018-08-22] MEDS: DOCUSATE SODIUM 100 MG CAPSULE PO SCH ×2 (11:33→17:11)
[2018-08-22] MEDS ORDERED: (PENDING PHARMACY ID) (Ranitidine Hcl [Zantac 150 Mg Tablet] 150 MG) PO PRN (11:59)
[2018-08-22] MEDS ORDERED: ALBUTEROL SULFATE HFA (90 MCG/PUFF) 200 PUFF/8.5 GM MDI IH PRN (11:59)
[2018-08-22] MEDS ORDERED: CEFTRIAXONE SODIUM 1,000 MG in DEXTROSE 5%-WATER 50 ML IV SCH (12:00)
[2018-08-22] MEDS ORDERED: (PENDING PHARMACY ID) (Bupropion Hcl [Bupropion Xl] 150 MG) PO SCH (12:00)
[2018-08-22] MEDS ORDERED: CEFAZOLIN SODIUM 1 GM in DEXTROSE 5%-WATER 50 ML IV SCH (12:00)
--- NOTE | 2018-08-22 12:04 | PDOC PROGRESS REPORT ---
Subjective Progress Note for:: 08/22/18 Subjective:: BP is improved and did not need any further fluids or pressors at all. she is still complaining of diffuse abdominal pain. Reason For Visit: UTI HYPOTENSION Physical Exam Vital Signs: Temp Pulse Resp BP Pulse Ox 97.5 F 57 L 7 L 104/64 100 08/22/18 10:00 08/22/18 10:00 08/22/18 10:47 08/22/18 10:47 08/22/18 10:47 Intake & Output 08/21/18 08/22/18 08/23/18 06:59 06:59 06:59 Intake Total 4333 370 Output Total 450 800 Balance 3883 -430 Weight 156 lb 15.506 oz General appearance: PRESENT: no acute distress, cooperative Head exam: PRESENT: atraumatic, normocephalic Eye exam: PRESENT: EOMI. ABSENT: conjunctival injection Ear exam: ABSENT: bleeding, drainage Neck exam: ABSENT: meningismus, tenderness Respiratory exam: PRESENT: clear to auscultation katina. ABSENT: accessory muscle use Cardiovascular exam: PRESENT: RRR. ABSENT: diastolic murmur, systolic murmur Pulses: PRESENT: normal radial pulses GI/Abdominal exam: PRESENT: normal bowel sounds, soft, tenderness - mild diffuse. ABSENT: ascites, mass, rigid Rectal exam: PRESENT: deferred Extremities exam: ABSENT: pedal edema Musculoskeletal exam: ABSENT: deformity Neurological exam: PRESENT: alert, altered, awake, oriented to person, oriented to place, oriented to time, oriented to situation Psychiatric exam: PRESENT: anxious Results Laboratory Results: 08/22/18 04:00 08/22/18 04:00 08/22/18 08/22/18 08/22/18 04:00 04:00 04:00 WBC 6.8 RBC 3.53 L Hgb 10.4 L D Hct 30.1 L MCV 85 MCH 29.4 MCHC 34.5 RDW 14.2 H Plt Count 158 Seg Neutrophils % 65.4 Lymphocytes % 23.8 Monocytes % 7.6 Eosinophils % 2.7 Basophils % 0.5 Absolute Neutrophils 4.5 Absolute Lymphocytes 1.6 Absolute Monocytes 0.5 Absolute Eosinophils 0.2 Absolute Basophils 0.0 Sodium 140.4 Potassium 3.3 L Chloride 108 H Carbon Dioxide 27 Anion Gap 5 BUN 16 Creatinine 0.67 Est GFR ( Amer) > 60 Est GFR (Non-Af Amer) > 60 Glucose 121 H Calcium 7.5 L Magnesium 1.8 08/22/18 04:00 NT-Pro-B Natriuret Pep 112 Impressions: Chest X-Ray 08/21/18 17:09 IMPRESSION: NO ACUTE RADIOGRAPHIC FINDING IN THE CHEST. Abdomen/Pelvis CT 08/21/18 17:42 IMPRESSION: NO SIGNIFICANT OR ACUTE FINDING IN THE ABDOMEN OR PELVIS ON CT SCAN WITH IV CONTRAST. Assessment & Plan - Diagnosis (1) Hypotension Is this a current diagnosis for this admission?: Yes Plan: unclear etiology likely overuse of antihypertensives improved monitor (2) Depression Is this a current diagnosis for this admission?: Yes Plan: continue antidepressants (3) Asthma Is this a current diagnosis for this admission?: Yes Plan: continue albuterol and symbicort (4) Hypothyroidism Is this a current diagnosis for this admission?: Yes Plan: continue levothyroxine (5) Dyslipidemia Is this a current diagnosis for this admission?: Yes Plan: continue statin (6) Urinary tract infection Qualifiers: Urinary tract infection type: site unspecified Hematuria presence: without hematuria Qualified Code(s): N39.0 - Urinary tract infection, site not specified Is this a current diagnosis for this admission?: Yes Plan: continue ceftriaxone follow urine cultures
[2018-08-22] MEDS: LORATADINE 10 MG TABLET PO SCH (13:40)
[2018-08-22] MEDS: LEVOTHYROXINE SODIUM 0.075 MG TABLET PO SCH (13:40)
[2018-08-22] MEDS: MULTIVITAMIN TABLET PO SCH (13:41)
[2018-08-22] MEDS: SERTRALINE HCL 50 MG TABLET PO SCH (13:41)
[2018-08-22] MEDS ORDERED: FAMOTIDINE 20 MG TABLET PO PRN (13:42)
[2018-08-22] MEDS: BUDESONIDE/FORMOTEROL 160-4.5 MCG 60 PUFF/6 GM MDI IH SCH ×2 (13:48→21:36)
[2018-08-22] MEDS ORDERED: VANCOMYCIN HCL 1,000 MG in DEXTROSE 5%-WATER 250 ML IV SCH (14:00)
[2018-08-22] MEDS: BUPROPION HCL 75 MG TABLET PO SCH (21:35)
[2018-08-22] MEDS ORDERED: (PENDING PHARMACY ID) (Rosuvastatin Calcium [Crestor 20 Mg Tablet] 20 MG) PO SCH (22:00)
[2018-08-22] MEDS ORDERED: ATORVASTATIN CALCIUM 40 MG TABLET PO SCH (22:00)
[2018-08-23] MEDS ORDERED: POTASSIUM CHLORIDE 10 MEQ CAPSULE.ER PO ONE ×2 (06:02→07:00)
[2018-08-23 06:33] LABS: ABSOLUTE EOSINOPHILS # (AUTO) 0.2 10^3/uL (0.0-0.6); ABSOLUTE LYMPHOCYTES (AUTO) 1.8 10^3/uL (0.5-4.7); ABSOLUTE MONOCYTES (AUTO) 0.3 10^3/uL (0.1-1.4); ABSOLUTE NEUT (AUTO) 2.7 10^3/uL (1.7-8.2); BASOPHILS % (AUTO) 0.5 % (0-2); EOSINOPHILS % (AUTO) 4.9 % (0-6); HEMATOCRIT 30.7 % (36.0-47.0); HEMOGLOBIN 10.6 g/dL (12.0-15.5); LYMPHOCYTES % (AUTO) 34.5 % (13-45); MEAN CORPUSCULAR HEMOGLOBIN 29.5 pg (27.0-33.4); MEAN CORPUSCULAR HGB CONC 34.6 g/dL (32.0-36.0); MEAN CORPUSCULAR VOLUME 85 fl (80-97); MONOCYTES % (AUTO) 6.4 % (3-13); PLATELET COUNT 165 10^3/uL (150-450); RED BLOOD COUNT 3.61 10^6/uL (3.72-5.28); RED CELL DISTRIBUTION WIDTH 14.2 % (11.5-14.0); SEGMENTED NEUTROPHILS % (AUTO) 53.7 % (42-78); TOTAL CELLS COUNTED % (AUTO) 100 %; WHITE BLOOD COUNT 5.1 10^3/uL (4.0-10.5)
[2018-08-23] MEDS: HEPARIN SOD (PORCINE) 5,000 UNIT/ML 1 ML SYRINGE SUBCUT SCH ×2 (06:35→20:07)
[2018-08-23] MEDS: LEVOTHYROXINE SODIUM 0.075 MG TABLET PO SCH (06:35)
[2018-08-23 06:38] LABS: BLOOD UREA NITROGEN 7 mg/dL (7-20); CALCIUM 7.8 mg/dL (8.4-10.2); GLUCOSE 89 mg/dL (75-110)
[2018-08-23 06:39] LABS: ALANINE AMINOTRANSFERASE 14 U/L (9-52); ALBUMIN 2.7 g/dL (3.5-5.0); ALKALINE PHOSPHATASE 44 U/L (38-126); ANION GAP 6 (5-19); ASPARTATE AMINO TRANSFERASE 14 U/L (14-36); BILIRUBIN,DIRECT 0.2 mg/dL (0.0-0.4); BILIRUBIN,TOTAL 0.2 mg/dL (0.2-1.3); CARBON DIOXIDE 25 mmol/L (22-30); CHLORIDE 114 mmol/L (98-107); POTASSIUM 3.4 mmol/L (3.6-5.0); SODIUM 144.5 mmol/L (137-145); TOTAL PROTEIN 4.9 g/dL (6.3-8.2)
--- NOTE | 2018-08-23 07:13 | EKG REPORT ---
SEVERITY:- NORMAL ECG - SINUS RHYTHM : Confirmed by: Fabio Sims 23-Aug-2018 07:13:15
[2018-08-23] MEDS: BUDESONIDE/FORMOTEROL 160-4.5 MCG 60 PUFF/6 GM MDI IH SCH ×2 (09:13→21:04)
[2018-08-23] MEDS: DOCUSATE SODIUM 100 MG CAPSULE PO SCH ×2 (09:15→20:08)
[2018-08-23] MEDS: LORATADINE 10 MG TABLET PO SCH (09:15)
[2018-08-23] MEDS: MULTIVITAMIN TABLET PO SCH (09:15)
[2018-08-23] MEDS: BUPROPION HCL 75 MG TABLET PO SCH ×2 (09:15→21:04)
[2018-08-23] MEDS: SERTRALINE HCL 50 MG TABLET PO SCH (09:15)
[2018-08-23] MEDS ORDERED: MIDODRINE HCL 5 MG TABLET PO SCH (11:00)
--- NOTE | 2018-08-23 11:14 | XCELERA REPORT ---
[address] [address] Transthoracic Echocardiogram Report Name: AIDE STEPHENS Age: 57 yrs Gender: Female : 1960 Patient Status: Inpatient Patient Location: ICU^603^A Study Date: 08/22/2018 10:44 AM Procedure: A complete two-dimensional transthoracic echocardiogram was performed (2D, M-mode, spectral and color flow Doppler). The study was technically adequate with some images being suboptimal in quality. Reason For Study: hypotension Ordering Physician: MARIAELENA PARHAM Performed By: Roxie Santa Interpretation Summary The left ventricular ejection fraction is normal. There is borderline concentric left ventricular hypertrophy. The left ventricle is grossly normal size. Doppler measurements suggest impaired left ventricular relaxation, which is associated with grade I/IV or mild diastolic dysfunction Wall motion cannot be accurately commented on, but no definite regional wall motion abnormalities noted. The left atrial size is normal. The right atrium is normal in size There is no mitral valve stenosis. No aortic regurgitation is present. There is no aortic valve stenosis There is a trace to mild amount of tricuspid regurgitation There is mild pulmonary hypertension by echo Right ventricular systolic pressure is estimated to be elevated at 30-40mmHg. The aortic root is not well visualized but is probably normal size. The inferior vena cava appeared normal and decreased < 50% with respiration (RAP 10-15 mmHg) There is no pericardial effusion. MMode/2D Measurements & Calculations IVSd: 0.80 cm LVIDd: 4.6 cm FS: 37.1 % Ao root diam: 2.7 cm LVIDs: 2.9 cm EDV(Teich): 95.2 ml Ao root area: 5.9 cm2 LVPWd: 0.85 cm ESV(Teich): 31.3 ml EF(Teich): 67.1 % Doppler Measurements & Calculations MV E max timothy: MV dec slope: Ao V2 max: LV V1 max P.3 cm/sec 125.9 cm/sec 3.0 mmHg MV A max timothy: 442.6 cm/sec2 Ao max PG: LV V1 max: 82.6 cm/sec MV dec time: 0.17 sec6.3 mmHg 86.0 cm/sec MV E/A: 0.89 PA V2 max: TR max timothy: 96.9 cm/sec 273.5 cm/sec PA max P.8 mmHg TR max P.9 mmHg Left Ventricle The left ventricle is grossly normal size. There is borderline concentric left ventricular hypertrophy. The left ventricular ejection fraction is normal. Doppler measurements suggest impaired left ventricular relaxation, which is associated with grade I/IV or mild diastolic dysfunction. Wall motion cannot be accurately commented on, but no definite regional wall motion abnormalities noted. Right Ventricle The right ventricle is grossly normal size. Right ventricular function cannot be assessed due to poor image quality. Atria The right atrium is normal in size. The left atrial size is normal. Interarterial septum not well visualized and not well dopplered. Cannot comment on ASD/PFO presence. Mitral Valve The mitral valve is grossly normal. There is no mitral valve stenosis. There is a trace amount of mitral regurgitation. Aortic Valve The aortic valve is not well visualized secondary to technical limitations. There is no aortic valve stenosis. No aortic regurgitation is present. Tricuspid Valve The tricuspid valve is not well visualized, but is grossly normal. There is no tricuspid stenosis. There is a trace to mild amount of tricuspid regurgitation. There is mild pulmonary hypertension by echo. Right ventricular systolic pressure is estimated to be elevated at 30-40mmHg. Pulmonic Valve The pulmonic valve is not well visualized. Great Vessels The aortic root is not well visualized but is probably normal size. The inferior vena cava appeared normal and decreased < 50% with respiration (RAP 10-15 mmHg). Effusions There is no pericardial effusion. : MARIAELENA PARHAM > Fabio Sims
--- NOTE | 2018-08-23 11:25 | PDOC PROGRESS REPORT ---
Subjective Progress Note for:: 08/23/18 Subjective:: Patient was seen and examined. Last blood pressure was 120/88. She never needed pressors and she did not have any fluids since yesterday. She is able to tolerate diet. She is still complaining of mild abdominal discomfort. Her urine cultures positive for gram-negative rods 80-90,000 colony count. Reason For Visit: UTI HYPOTENSION Physical Exam Vital Signs: Temp Pulse Resp BP Pulse Ox 97.0 F 61 11 L 93/58 L 98 08/23/18 11:10 08/22/18 20:00 08/23/18 10:18 08/23/18 10:18 08/23/18 10:18 Intake & Output 08/22/18 08/23/18 08/24/18 06:59 06:59 06:59 Intake Total 4333 1570 218 Output Total 450 3400 300 Balance 3883 -1830 -82 Weight 156 lb 15.506 oz 158 lb 11.725 oz General appearance: PRESENT: no acute distress, cooperative Head exam: PRESENT: atraumatic, normocephalic Eye exam: PRESENT: EOMI Ear exam: ABSENT: bleeding, drainage Respiratory exam: PRESENT: clear to auscultation katina, unlabored. ABSENT: accessory muscle use Cardiovascular exam: PRESENT: RRR. ABSENT: diastolic murmur, systolic murmur Pulses: PRESENT: normal radial pulses GI/Abdominal exam: PRESENT: normal bowel sounds, soft. ABSENT: ascites Rectal exam: PRESENT: deferred Extremities exam: ABSENT: pedal edema Neurological exam: PRESENT: alert, altered, awake, oriented to person, oriented to place, oriented to time, oriented to situation Psychiatric exam: PRESENT: anxious. ABSENT: homicidal ideation, suicidal ideation Results Laboratory Results: 08/23/18 04:10 08/23/18 04:10 08/23/18 08/23/18 04:10 04:10 WBC 5.1 RBC 3.61 L Hgb 10.6 L Hct 30.7 L MCV 85 MCH 29.5 MCHC 34.6 RDW 14.2 H Plt Count 165 Seg Neutrophils % 53.7 Lymphocytes % 34.5 Monocytes % 6.4 Eosinophils % 4.9 Basophils % 0.5 Absolute Neutrophils 2.7 Absolute Lymphocytes 1.8 Absolute Monocytes 0.3 Absolute Eosinophils 0.2 Absolute Basophils 0.0 Sodium 144.5 Potassium 3.4 L Chloride 114 H Carbon Dioxide 25 Anion Gap 6 BUN 7 Creatinine 0.63 Est GFR ( Amer) > 60 Est GFR (Non-Af Amer) > 60 Glucose 89 Calcium 7.8 L Total Bilirubin 0.2 AST 14 ALT 14 Alkaline Phosphatase 44 Total Protein 4.9 L Albumin 2.7 L 08/22/18 04:00 NT-Pro-B Natriuret Pep 112 Impressions: Chest X-Ray 08/21/18 17:09 IMPRESSION: NO ACUTE RADIOGRAPHIC FINDING IN THE CHEST. Abdomen/Pelvis CT 08/21/18 17:42 IMPRESSION: NO SIGNIFICANT OR ACUTE FINDING IN THE ABDOMEN OR PELVIS ON CT SCAN WITH IV CONTRAST. Assessment & Plan - Diagnosis (1) Hypotension Is this a current diagnosis for this admission?: Yes Plan: Last blood pressure was 120/88 Most likely the reason is overuse of antihypertensives Continue to hold antihypertensive medications and monitor blood pressure (2) Depression Is this a current diagnosis for this admission?: Yes Plan: continue sertraline and Wellbutrin (3) Asthma Is this a current diagnosis for this admission?: Yes Plan: Currently stable continue albuterol and symbicort (4) Hypothyroidism Is this a current diagnosis for this admission?: Yes Plan: continue levothyroxine TSH is normal at 1.9 (5) Dyslipidemia Is this a current diagnosis for this admission?: Yes Plan: continue Lipitor (6) Urinary tract infection Qualifiers: Urinary tract infection type: site unspecified Hematuria presence: without hematuria Qualified Code(s): N39.0 - Urinary tract infection, site not specified Is this a current diagnosis for this admission?: Yes Plan: continue ceftriaxone Preliminary urine cultures positive for gram-negative rods 80-90,000 colony count
[2018-08-23 14:20] LABS: VANCOMYCIN,TROUGH < 5.0 ug/mL (5.0-20.0)
[2018-08-23] MEDS ORDERED: ALBUTEROL SULFATE 0.083% NEB 2.5 MG/3 ML AMPUL NEB PRN (17:59)
[2018-08-23] MEDS ORDERED: MAG HYDROX/AL HYDROX/SIMETH SUSP 30 ML UDCUP PO PRN (17:59)
[2018-08-23] MEDS: FAMOTIDINE 20 MG TABLET PO SCH (20:08)
[2018-08-23] MEDS: CEFTRIAXONE SODIUM 1,000 MG in DEXTROSE 5%-WATER 50 ML IV SCH (20:20)
[2018-08-23] MEDS: ATORVASTATIN CALCIUM 40 MG TABLET PO SCH (21:04)
[2018-08-24 04:16] LABS: HEMATOCRIT 30.4 % (36.0-47.0); HEMOGLOBIN 10.7 g/dL (12.0-15.5); MEAN CORPUSCULAR HEMOGLOBIN 29.7 pg (27.0-33.4); MEAN CORPUSCULAR HGB CONC 35.1 g/dL (32.0-36.0); MEAN CORPUSCULAR VOLUME 85 fl (80-97); PLATELET COUNT 161 10^3/uL (150-450); RED BLOOD COUNT 3.59 10^6/uL (3.72-5.28); RED CELL DISTRIBUTION WIDTH 14.4 % (11.5-14.0); WHITE BLOOD COUNT 5.5 10^3/uL (4.0-10.5)
[2018-08-24 04:30] LABS: ANION GAP 6 (5-19); BLOOD UREA NITROGEN 7 mg/dL (7-20); CALCIUM 8.4 mg/dL (8.4-10.2); CARBON DIOXIDE 25 mmol/L (22-30); CHLORIDE 114 mmol/L (98-107); GLUCOSE 93 mg/dL (75-110); POTASSIUM 3.7 mmol/L (3.6-5.0); SODIUM 144.7 mmol/L (137-145)
[2018-08-24] MEDS: HEPARIN SOD (PORCINE) 5,000 UNIT/ML 1 ML SYRINGE SUBCUT SCH ×2 (05:03→17:04)
[2018-08-24] MEDS: FAMOTIDINE 20 MG TABLET PO SCH ×2 (05:03→17:04)
[2018-08-24] MEDS: LEVOTHYROXINE SODIUM 0.075 MG TABLET PO SCH (05:03)
[2018-08-24] MEDS: BUDESONIDE/FORMOTEROL 160-4.5 MCG 60 PUFF/6 GM MDI IH SCH ×2 (09:38→21:04)
[2018-08-24] MEDS: BUPROPION HCL 75 MG TABLET PO SCH ×2 (09:39→21:04)
[2018-08-24] MEDS: SERTRALINE HCL 50 MG TABLET PO SCH (09:39)
[2018-08-24] MEDS: DOCUSATE SODIUM 100 MG CAPSULE PO SCH ×2 (09:39→17:05)
[2018-08-24] MEDS: LORATADINE 10 MG TABLET PO SCH (09:40)
[2018-08-24] MEDS ORDERED: CEFTRIAXONE 1 GM/D5W RTU 1 GM/50 ML RTUPB IV SCH (10:00)
--- NOTE | 2018-08-24 13:20 | PDOC DISCHARGE SUMMARY ---
General - Admit/Disc Date/PCP Admission Date/Primary Care Provider: 08/21/18 22:53 SAMARIA RASMUSSEN MD Discharge Date: 08/24/18 - Discharge Diagnosis (1) Hypotension Is this a current diagnosis for this admission?: Yes (2) Depression Is this a current diagnosis for this admission?: Yes (3) Asthma Is this a current diagnosis for this admission?: Yes (4) Hypothyroidism Is this a current diagnosis for this admission?: Yes (5) Dyslipidemia Is this a current diagnosis for this admission?: Yes (6) Urinary tract infection Is this a current diagnosis for this admission?: Yes - Additional Information Resuscitation Status: Full Code Discharge Diet: Regular Discharge Activity: Slowly Increase Activity Prescriptions: Cephalexin Monohydrate [Keflex 500 mg Capsule] 500 mg PO BID #8 capsule Home Medications: Albuterol Sulfate [Proair HFA Inhalation Aerosol 8.5 gm MDI] 2 puff IH Q4HP PRN 08/22/18 Alendronate Sodium [Fosamax 70 mg Tablet] 70 mg PO SA@1000 08/22/18 Budesonide/Formoterol Fumarate [Symbicort HFA 160-4.5 mcg Inhaler 6 gm] 1 puff IH Q12 08/22/18 Bupropion HCl [Bupropion Xl] 150 mg PO DAILY 08/22/18 Cholecalciferol (Vitamin D3) [Vitamin D3 2000 unit Tablet] 2,000 unit PO DAILY 08/22/18 Docusate Sodium [Colace 100 mg Capsule] 100 mg PO DAILY MDD 2 caps 08/22/18 Ergocalciferol (Vitamin D2) [Drisdol 50,000 unit (1.25MG) Capsule] 50,000 unit PO PEREZ@1000 08/22/18 Levothyroxine Sodium [Synthroid 0.075 mg Tablet] 0.075 mg PO Q6AM 08/22/18 Linaclotide [Linzess] 290 mcg PO DAILY 08/22/18 Loratadine [Claritin 10 mg Tablet] 10 mg PO DAILY 08/22/18 Multivitamin [Tab-A-La (Multiple Vitamin) Tablet] 1 tab PO DAILY 08/22/18 Ranitidine HCl [Zantac 150 mg Tablet] 150 mg PO DAILYP PRN 08/22/18 Rosuvastatin Calcium [Crestor 20 mg Tablet] 20 mg PO QHS 08/22/18 Sertraline HCl [Zoloft 50 mg Tablet] 200 mg PO DAILY 08/22/18 Cephalexin Monohydrate [Keflex 500 mg Capsule] 500 mg PO BID #8 capsule History of Present Illness History of Present Illness: AIDE STEPHENS is a 57 year old female with a past medical history of hypertension, hypothyroidism and constipation predominant irritable bowel syndrome. Patient presents with 12 hours of crampy abdominal pain associated with constipation. Stating last bowel movement 3 days ago, denying diarrhea, nausea or vomiting. In the emergency room she is found to have hypotension and pyuria but an unremarkable CT abdomen and pelvis. She receives empiric antibiotics, 3 L of colloid without significant improvement in blood pressure remaining orthostatic with systolic blood pressures in the 80s and heart rate in the 60s-70s. Patient she denies recent steroids, antibiotics, urinary tract infection, chest pain or shortness of breath. Hospital Course Hospital Course: Patient was admitted to the ICU. Her pressure actually improved without any pressors or even fluids. She was supposed to be transferred to the floor but there was no beds so she stayed in ICU. She continued to be stable and blood pressure improved and was maintained. She tolerated diet. Urine culture positive for Proteus and she was initially started on ceftriaxone and will be discharged on Keflex. She lives alone and deconditioned and will require rehabilitation. She tells me that her blood pressure at baseline in the 100- 110 systolic and she is on 2 antihypertensive medications. I believe she is overmedicated and we stopped her antihypertensive medications. Blood pressure is appropriate and stable. She is stable for discharge. Physical Exam Vital Signs: Temp Pulse Resp BP Pulse Ox 97.9 F 72 10 L 120/74 96 08/24/18 10:00 08/24/18 10:00 08/24/18 10:00 08/24/18 10:00 08/24/18 10:00 Intake & Output 08/23/18 08/24/18 08/25/18 06:59 06:59 06:59 Intake Total 1570 608 Output Total 3400 1850 500 Balance -1830 -2092 -500 Weight 158 lb 11.725 oz 164 lb 7.437 oz General appearance: PRESENT: no acute distress, cooperative Head exam: PRESENT: atraumatic, normocephalic Ear exam: ABSENT: bleeding, drainage Neck exam: ABSENT: meningismus, tenderness Respiratory exam: PRESENT: clear to auscultation katina. ABSENT: accessory muscle use Cardiovascular exam: PRESENT: RRR. ABSENT: diastolic murmur, systolic murmur Pulses: PRESENT: normal radial pulses GI/Abdominal exam: PRESENT: normal bowel sounds, soft. ABSENT: ascites, tenderness Rectal exam: PRESENT: deferred Neurological exam: PRESENT: alert, altered, awake, oriented to person, oriented to place, oriented to time, oriented to situation Psychiatric exam: ABSENT: agitated, anxious, homicidal ideation, suicidal ideation Results Laboratory Results: 08/24/18 03:51 08/24/18 03:51 08/23/18 08/24/18 08/24/18 13:44 03:51 03:51 WBC 5.5 RBC 3.59 L Hgb 10.7 L Hct 30.4 L MCV 85 MCH 29.7 MCHC 35.1 RDW 14.4 H Plt Count 161 Sodium 144.7 Potassium 3.7 Chloride 114 H Carbon Dioxide 25 Anion Gap 6 BUN 7 Creatinine 0.58 0.64 Est GFR ( Amer) > 60 > 60 Est GFR (Non-Af Amer) > 60 > 60 Glucose 93 Calcium 8.4 Magnesium 1.8 08/22/18 04:00 NT-Pro-B Natriuret Pep 112 Impressions: Chest X-Ray 08/21/18 17:09 IMPRESSION: NO ACUTE RADIOGRAPHIC FINDING IN THE CHEST. Abdomen/Pelvis CT 08/21/18 17:42 IMPRESSION: NO SIGNIFICANT OR ACUTE FINDING IN THE ABDOMEN OR PELVIS ON CT SCAN WITH IV CONTRAST. Qualifiers - * PATIENT BEING DISCHARGED WITH ANY OF THE FOLLOWING DIAGNOSIS: No
[2018-08-24] MEDS: CEFTRIAXONE SODIUM 1,000 MG in DEXTROSE 5%-WATER 50 ML IV SCH (19:33)
[2018-08-24] MEDS: ATORVASTATIN CALCIUM 40 MG TABLET PO SCH (21:04)
[2018-08-25] MEDS: FAMOTIDINE 20 MG TABLET PO SCH ×2 (05:32→18:06)
[2018-08-25] MEDS: HEPARIN SOD (PORCINE) 5,000 UNIT/ML 1 ML SYRINGE SUBCUT SCH ×2 (05:32→18:06)
[2018-08-25] MEDS: LEVOTHYROXINE SODIUM 0.075 MG TABLET PO SCH (05:32)
[2018-08-25] MEDS: SERTRALINE HCL 50 MG TABLET PO SCH (09:48)
[2018-08-25] MEDS: DOCUSATE SODIUM 100 MG CAPSULE PO SCH ×2 (09:49→18:06)
[2018-08-25] MEDS: LORATADINE 10 MG TABLET PO SCH (09:49)
[2018-08-25] MEDS: BUPROPION HCL 75 MG TABLET PO SCH ×2 (09:50→21:09)
[2018-08-25] MEDS: BUDESONIDE/FORMOTEROL 160-4.5 MCG 60 PUFF/6 GM MDI IH SCH ×2 (09:50→21:09)
--- NOTE | 2018-08-25 12:25 | Progress Note ---
Provider Note Provider Note: Patient continues to be stable No change in plans Discharge later today to to rehab
[2018-08-25] MEDS: CEFTRIAXONE SODIUM 1,000 MG in DEXTROSE 5%-WATER 50 ML IV SCH (21:08)
[2018-08-25] MEDS: ATORVASTATIN CALCIUM 40 MG TABLET PO SCH (21:09)
[2018-08-26] MEDS: HEPARIN SOD (PORCINE) 5,000 UNIT/ML 1 ML SYRINGE SUBCUT SCH (07:15)
[2018-08-26] MEDS: FAMOTIDINE 20 MG TABLET PO SCH (07:15)
[2018-08-26] MEDS: LEVOTHYROXINE SODIUM 0.075 MG TABLET PO SCH (07:15)
[2018-08-26] MEDS: BUDESONIDE/FORMOTEROL 160-4.5 MCG 60 PUFF/6 GM MDI IH SCH (09:03)
[2018-08-26] MEDS: SERTRALINE HCL 50 MG TABLET PO SCH (09:03)
[2018-08-26] MEDS: LORATADINE 10 MG TABLET PO SCH (09:03)
[2018-08-26] MEDS: DOCUSATE SODIUM 100 MG CAPSULE PO SCH (09:03)
[2018-08-26] MEDS: BUPROPION HCL 75 MG TABLET PO SCH (09:03)
[2018-08-26 12:53] VITALS: BP 117/78
[2018-08-26] MEDS ORDERED: BISACODYL 10 MG SUPP.RECT PR ONE (13:30)
[2018-08-27] MEDS ORDERED: ERGOCALCIFEROL (VITAMIN D2) 50000 UNIT (1.25 MG) CAPSULE PO SCH (10:00)
== END 2018-08-26 14:30 | DRG 918 ==
LOC: ER 16:22 → OBSVTOIN 22:53 → EH 22:53 → ICU 08-22 03:40
PROVIDERS: ADMIT Internal Medicine; ATTEND Internal Medicine
PROC: 3E0F73Z Introduction of Anti-inflammatory into Respiratory Tract, Via Natural or Artificial Opening (ICD-10-PCS; principal; 2018-08-23)
DX: T46.5X1A Poisoning by other antihypertensive drugs, accidental (unintentional), initial encounter (principal); N39.0 Urinary tract infection, site not specified; I95.2 Hypotension due to drugs; F32.9 Major depressive disorder, single episode, unspecified; E03.9 Hypothyroidism, unspecified; J45.909 Unspecified asthma, uncomplicated; E78.00 Pure hypercholesterolemia, unspecified; I10 Essential (primary) hypertension; K58.1 Irritable bowel syndrome with constipation; B96.4 Proteus (mirabilis) (morganii) as the cause of diseases classified elsewhere; K21.9 Gastro-esophageal reflux disease without esophagitis; M19.90 Unspecified osteoarthritis, unspecified site; F41.9 Anxiety disorder, unspecified; Z75.1 Person awaiting admission to adequate facility elsewhere; Z79.899 Other long term (current) drug therapy; Z60.2 Problems related to living alone; Z88.0 Allergy status to penicillin; Z82.61 Family history of arthritis; Z82.3 Family history of stroke; Z83.3 Family history of diabetes mellitus; Z80.9 Family history of malignant neoplasm, unspecified; Z82.49 Family history of ischemic heart disease and other diseases of the circulatory system
CPT/HCPCS: 36415; 71045; 74177; 80048; 80053; 80202; 80307; 81001; 82533; 82550; 82553; 82565; 83605; 83735; 83880; 84443; 84484; 85025; 85027; 87040; 87086; 87088; 87186; 93005; 93010; 93306; 96361; 96365; 96366; 96367; 96375; 96376; 99285; G8978-GP; G8979-GP; J0696; J1644; J1956; J2310; J2405; J3370; J3480; J3490; J7030; J7060

== ENCOUNTER → 2019-03-21 | Outpatient (CLI) | payer MEDICARE, MEDICAID ==
--- NOTE | 2019-03-21 14:08 | RADIOLOGY REPORT (SQ) ---
EXAM DESCRIPTION: CT SOFT TISSUE NECK WITH COMPLETED DATE/TIME: 03/21/2019 1:43 pm REASON FOR STUDY: R22.1 LOCALIZED SWELLING, MASS AND LUMP, NECK R22.1 LOCALIZED SWELLING, MASS AND LUMP, NECK COMPARISON: None. TECHNIQUE: Post IV contrasted scanning from skull base through lung apices with review of bone, soft tissue and lung windows. Reconstructed coronal and sagittal MPR images reviewed. All images stored on PACS. All CT scanners at this facility use dose modulation, iterative reconstruction, and/or weight based d osing when appropriate to reduce radiation dose to as low as reasonably achievable (ALARA). [facility]: Dose Right [facility]: CareDose [facility]: Dose Right [facility]: Teradose 4D [facility]: [email or web address] CONTRAST TYPE AND DOSE: contrast/concentration: Isovue 350.00 mg/ml; Total Contrast Delivered: 75.0 ml; Total Saline Delivered: 55.0 ml RENAL FUNCTION: Creatinine 0.9 RADIATION DOSE: . LIMITATIONS: None. FINDINGS: SKULL BASE: Intact. MAJOR SALIVARY GLANDS: No solid or cystic masses. No inflammatory changes. LYMPHADENOPATHY: There are small submental and submandibular nodes. MUCOSAL MASSES OR ASYMMETRY: No mucosal masses or asymmetry. LARYNX/CORDS: No abnormal findings. VASCULAR STRUCTURES: The major vessels are patent. LUNG APICES: Clear. BONES: 12 mm osteoma in the left parietal region. THYROID: Prior resection of the right lobe of the thyroid. PARANASAL SINUSES: Clear. OTHER: No other significant finding. IMPRESSION: There is no parotid mass. No mass is seen in the neck. There are some small submental and submandibular lymph nodes. 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 TECHNICAL DOCUMENTATION: JOB ID: [id number] Quality ID # [id number]: Final reports with documentation of one or more dose reduction techniques (e.g., Au tomated exposure control, adjustment of the mA and/or kV according to patient size, use of iterative reconstruction technique) 2010 [employer]- All Rights Reserved Reading location - IP/workstation name: [email or web address]
== END ==
LOC: RAD 13:14
PROVIDERS: ATTEND Otolaryngology
DX: D16.4 Benign neoplasm of bones of skull and face (principal)
CPT/HCPCS: 70491; 82565

== ENCOUNTER 2019-04-08 14:12 | Inpatient (IN) | payer MEDICARE, MEDICAID ==
[2019-04-08 14:32] LABS: ABSOLUTE EOSINOPHILS # (AUTO) 0.2 10^3/uL (0.0-0.6); ABSOLUTE MONOCYTES (AUTO) 0.5 10^3/uL (0.1-1.4); ABSOLUTE NEUT (AUTO) 6.9 10^3/uL (1.7-8.2); BASOPHILS % (AUTO) 0.3 % (0-2); EOSINOPHILS % (AUTO) 2.6 % (0-6); HEMOGLOBIN 12.6 g/dL (12.0-15.5); MEAN CORPUSCULAR HEMOGLOBIN 29.7 pg (27.0-33.4); MEAN CORPUSCULAR HGB CONC 34.2 g/dL (32.0-36.0); MEAN CORPUSCULAR VOLUME 87 fl (80-97); MONOCYTES % (AUTO) 5.6 % (3-13); PLATELET COUNT 237 10^3/uL (150-450); RED BLOOD COUNT 4.25 10^6/uL (3.72-5.28); RED CELL DISTRIBUTION WIDTH 13.3 % (11.5-14.0); SEGMENTED NEUTROPHILS % (AUTO) 79.5 % (42-78); TOTAL CELLS COUNTED % (AUTO) 100 %; WHITE BLOOD COUNT 8.7 10^3/uL (4.0-10.5)
[2019-04-08] MEDS ORDERED: NORMAL SALINE 1000 ML 1,000 ML IV ONE (14:50)
[2019-04-08 14:53] LABS: ALANINE AMINOTRANSFERASE 20 U/L (9-52); ALBUMIN 4.9 g/dL (3.5-5.0); ALKALINE PHOSPHATASE 59 U/L (38-126); ANION GAP 10 (5-19); ASPARTATE AMINO TRANSFERASE 26 U/L (14-36); BILIRUBIN,DIRECT 0.3 mg/dL (0.0-0.4); BILIRUBIN,TOTAL 0.5 mg/dL (0.2-1.3); BLOOD UREA NITROGEN 37 mg/dL (7-20); CALCIUM 10.1 mg/dL (8.4-10.2); CARBON DIOXIDE 28 mmol/L (22-30); CHLORIDE 102 mmol/L (98-107); CREATINE KINASE 71 U/L (30-135); GLUCOSE 156 mg/dL (75-110); SODIUM 140.4 mmol/L (137-145); TOTAL PROTEIN 7.6 g/dL (6.3-8.2)
[2019-04-08] MEDS ORDERED: DEXTROSE 5%-WATER 250 ML with NOREPINEPHRINE BITARTRATE 4 MG IV PRN ×2 (14:58)
[2019-04-08 15:04] LABS: INTERNATIONAL RATION (INR) 1.04; PROTHROMBIN TIME 13.6 SEC (11.4-15.4)
--- NOTE | 2019-04-08 15:04 | ER Document Report ---
ED General - General Chief Complaint: Syncope Stated Complaint: POSSIBLE SYNCOPE Time Seen by Provider: 04/08/19 14:49 Primary Care Provider: OSWALD SILVA DO [Primary Care Provider] - Follow up as needed TRAVEL OUTSIDE OF THE [place] IN LAST 30 DAYS: No - HPI Notes: Patient is a 58-year-old female that presents to the emergency department for chief complaint of syncope. Patient states she was standing in her house trying to take her medications when she felt lightheaded and passed out. She fell forward hitting her face on the ground. She remembers falling but does not remember the events afterwards and does believe she completely lost consciousness. She denied any associated palpitations or chest pain. She does report a history of UTI and sepsis. She has had some dysuria over the last 2 days. She denies nausea, vomiting, fevers and chills. Family states that she does not eat or drink well. Patient is complaining of pain in her nose, left shoulder, and a diffuse throbbing headache. All of her pain is worse with movement. She denies any relieving factors to her pain. Past Medical History: Hyperlipidemia, asthma, anxiety and depression Past Surgical History: Reviewed in chart Social History: Reviewed in chart Family History: Reviewed and noncontributory for presenting illness Allergies: Reviewed, see documented allergy list. REVIEW OF SYSTEMS: CONSTITUTIONAL : No fever No chills No diaphoresis No recent illness EENT: No vision changes No congestion No sore throat CARDIOVASCULAR: No chest pain No palpitations Syncope RESPIRATORY: No shortness of breath No cough No difficulty breathing GASTROINTESTINAL: No abdominal pain No nausea No vomiting No diarrhea GENITOURINARY: dysuria No hematuria No difficulty urinating MUSCULOSKELETAL: No back pain No leg pain No arm pain SKIN: No rashes No lesions LYMPHATIC: No swollen, enlarged glands. NEUROLOGICAL: lightheadedness No headache No weakness No paresthesias PSYCHIATRIC: No anxiety No depression PHYSICAL EXAMINATION: Vital signs reviewed, nursing noted reviewed. GENERAL: Well-appearing, well-nourished and in no acute distress. HEAD: No cephalhematoma, normocephalic. EYES: Eyes appear normal, extraocular movements intact, sclera anicteric, conjunctiva are normal. ENT: diffuse midline tenderness, c-collar in place. Nasal bone tenderness with mild deformity, dried blood in right nares, no nasal septal hematoma, nares patent, oropharynx clear without exudates. Dry mucous membranes. No jaw malocclusion NECK: Normal range of motion, supple without lymphadenopathy LUNGS: Breath sounds clear to auscultation bilaterally and equal. No wheezes rales or rhonchi. HEART: bradycardic rate and regular rhythm without murmurs ABDOMEN: Soft, nontender, No rebound, guarding, or rigidity. No masses appreciated. EXTREMITIES: pain with range of motion of left shoulder with no focal bony tenderness. No long bone deformity. Good range of motion, no pitting or edema. NEUROLOGICAL: No focal neurological deficits. Moves all extremities spontaneously Motor and sensory grossly intact on exam. PSYCH: Normal mood, normal affect. SKIN: Warm, Dry, normal turgor, abrasions to bilateral anterior knees - Related Data Allergies/Adverse Reactions: Penicillins Allergy (Mild, Verified 05/28/18 14:10) Past Medical History - Social History Smoking Status: Unknown if Ever Smoked Family History: Arthritis, CAD, CVA, DM, Hyperlipidemia, Hypertension, Malignancy Patient has suicidal ideation: No Patient has homicidal ideation: No - Past Medical History Cardiac Medical History: Reports: Hx Hypercholesterolemia, Hx Hypertension Pulmonary Medical History: Reports: Hx Asthma, Hx Bronchitis Neurological Medical History: Reports: Hx Migraine Renal/ Medical History: Denies: Hx Peritoneal Dialysis GI Medical History: Reports: Hx Gastroesophageal Reflux Disease, Hx Irritable Bowel, Hx Colonoscopy, Hx Endoscopy Musculoskeletal Medical History: Reports Hx Arthritis, Reports Hx Mu sculoskeletal Trauma - Fractured nose Psychiatric Medical History: Reports: Hx Anxiety, Hx Depression Traumatic Medical History: Reports: Hx Fractures - Nose Past Surgical History: Reports: Hx Section - x3, Hx Thyroid Surgery, Hx Tubal Ligation - Immunizations Immunizations up to date: Yes Physical Exam - Vital signs Vitals: Resp BP Pulse Ox 11 L 74/42 L 98 04/08/19 14:21 04/08/19 14:21 04/08/19 14:21 Course - Re-evaluation Re-evalutation: 04/08/19 15:04 Vitals reviewed. Nursing notes reviewed. Patient presented to the emergency room bradycardic and hypotensive. She had received 400 mL's normal saline by EMS and another 1000 mL's normal saline in the ED with no change in her blood pressure. Patient has been ordered another 1000 mL's normal saline for her persistent hypotension as well as levophed. She is mentating appropriately and speaking in full sentences with no focal neurologic deficits. Imaging has been ordered to evaluate for injury during her fall. Patient's blood pressure medication is hydrochlorothiazide and lisinopril. She had no beta-blockers or calcium channel blockers in her medication bag. She denied over ingesting any of her home medications. 04/08/19 17:28 Patient reevaluated and is having blood pressure improvements with hydration. She has had 2500 mL normal saline bolus and current BP is 100/60. She is still mentating normally. Patient has no new complaints. Her lab work shows acute kidney injury with a creatinine of 1.66. Patient also has low TSH however her symptoms would be more concerning for hypothyroidism. She is not in thyroid storm. Patient has normal UA and no pneumonia on x-ray. She has no leukocytosis to suggest underlying infection. She is not acutely anemic to suggest bleeding. At this point I suspect dehydration as a cause of her hypotension. She will be admitted to the hospital for close monitoring of her renal function and for further cardiac evaluation of her syncope. Care discussed with Dr. Chen who accepts admission. Laboratory 04/08/19 04/08/19 04/08/19 13:30 13:30 13:30 WBC 8.7 RBC 4.25 Hgb 12.6 Hct 37.0 MCV 87 MCH 29.7 MCHC 34.2 RDW 13.3 Plt Count 237 Seg Neutrophils % 79.5 H Lymphocytes % 12.0 L Monocytes % 5.6 Eosinophils % 2.6 Basophils % 0.3 Absolute Neutrophils 6.9 Absolute Lymphocytes 1.0 Absolute Monocytes 0.5 Absolute Eosinophils 0.2 Absolute Basophils 0.0 PT INR VBG pH VBG pCO2 VBG HCO3 VBG Base Excess Sodium 140.4 Potassium 4.0 Chloride 102 Carbon Dioxide 28 Anion Gap 10 BUN 37 H Creatinine 1.66 H Est GFR ( Amer) 38 L Est GFR (Non-Af Amer) 32 L Glucose 156 H POC Glucose Lactic Acid Calcium 10.1 Total Bilirubin 0.5 Direct Bilirubin 0.3 Neonat Total Bilirubin Not Reportable Neonat Direct Bilirubin Not Reportable Neonat Indirect Bili Not Reportable AST 26 ALT 20 Alkaline Phosphatase 59 Creatine Kinase 71 CK-MB (CK-2) 0.62 Troponin I < 0.012 Total Protein 7.6 Albumin 4.9 TSH Urine Color Urine Appearance Urine pH Ur Specific [place] Urine Protein Urine Glucose (UA) Urine Ketones Urine Blood Urine Nitrite Urine Bilirubin Urine Urobilinogen Ur Leukocyte Esterase Urine WBC (Auto) Urine RBC (Auto) U Hyaline Cast (Auto) Squamous Epi Cells Auto Urine Mucus (Auto) Urine Ascorbic Acid 04/08/19 04/08/19 04/08/19 13:30 13:30 15:02 WBC RBC Hgb Hct MCV MCH MCHC RDW Plt Count Seg Neutrophils % Lymphocytes % Monocytes % Eosinophils % Basophils % Absolute Neutrophils Absolute Lymphocytes Absolute Monocytes Absolute Eosinophils Absolute Basophils PT 13.6 INR 1.04 VBG pH VBG pCO2 VBG HCO3 VBG Base Excess Sodium Potassium Chloride Carbon Dioxide Anion Gap BUN Creatinine Est GFR ( Amer) Est GFR (Non-Af Amer) Glucose POC Glucose 151 H Lactic Acid Calcium Total Bilirubin Direct Bilirubin Neonat Total Bilirubin Neonat Direct Bilirubin Neonat Indirect Bili AST ALT Alkaline Phosphatase Creatine Kinase CK-MB (CK-2) Troponin I Total Protein Albumin TSH 0.06 L Urine Color Urine Appearance Urine pH Ur Specific [place] Urine Protein Urine Glucose (UA) Urine Ketones Urine Blood Urine Nitrite Urine Bilirubin Urine Urobilinogen Ur Leukocyte Esterase Urine WBC (Auto) Urine RBC (Auto) U Hyaline Cast (Auto) Squamous Epi Cells Auto Urine Mucus (Auto) Urine Ascorbic Acid 04/08/19 04/08/19 04/08/19 15:04 15:04 15:53 WBC RBC Hgb Hct MCV MCH MCHC RDW Plt Count Seg Neutrophils % Lymphocytes % Monocytes % Eosinophils % Basophils % Absolute Neutrophils Absolute Lymphocytes Absolute Monocytes Absolute Eosinophils Absolute Basophils PT INR VBG pH 7.30 VBG pCO2 54.8 VBG HCO3 26.2 VBG Base Excess -0.8 Sodium Potassium Chloride Carbon Dioxide Anion Gap BUN Creatinine Est GFR ( Amer) Est GFR (Non-Af Amer) Glucose POC Glucose Lactic Acid 0.8 Calcium Total Bilirubin Direct Bilirubin Neonat Total Bilirubin Neonat Direct Bilirubin Neonat Indirect Bili AST ALT Alkaline Phosphatase Creatine Kinase CK-MB (CK-2) Troponin I Total Protein Albumin TSH Urine Color YELLOW Urine Appearance SLIGHTLY-CLOUDY Urine pH 6.0 Ur Specific [place] 1.010 Urine Protein NEGATIVE Urine Glucose (UA) NEGATIVE Urine Ketones NEGATIVE Urine Blood NEGATIVE Urine Nitrite NEGATIVE Urine Bilirubin NEGATIVE Urine Urobilinogen NEGATIVE Ur Leukocyte Esterase NEGATIVE Urine WBC (Auto) 1 Urine RBC (Auto) 0 U Hyaline Cast (Auto) 11 Squamous Epi Cells Auto <1 Urine Mucus (Auto) RARE Urine Ascorbic Acid NEGATIVE Chest X-Ray 04/08/19 14:50 IMPRESSION: Cardiomegaly without acute abnormality of the lungs in AP projection. Cervical Spine CT 04/08/19 14:51 IMPRESSION: CHRONIC DEGENERATIVE CHANGES. NO ACUTE FINDINGS. Head CT 04/08/19 14:51 IMPRESSION: No acute intracranial findings. EVIDENCE OF ACUTE STROKE: NO. Facial Bones CT 04/08/19 14:58 IMPRESSION: No fracture. Pelvis X-Ray 04/08/19 15:04 IMPRESSION: No fracture or dislocation of the pelvis or proximal femurs on single AP radiograph. Please note that plain radiographs are insensitive for hip or pelvic fracture. Shoulder X-Ray 04/08/19 15:04 IMPRESSION: Osteopenia without fracture or dislocation of the left shoulder. - Vital Signs Vital signs: Temp Pulse Resp BP Pulse Ox 97.7 F 68 11 L 111/70 98 04/08/19 14:25 04/08/19 14:25 04/08/19 17:21 04/08/19 17:21 04/08/19 17:21 - Laboratory Result Diagrams: 04/08/19 13:30 04/08/19 13:30 Laboratory results interpreted by me: 04/08/19 04/08/19 04/08/19 13:30 13:30 13:30 Seg Neutrophils % 79.5 H Lymphocytes % 12.0 L BUN 37 H Creatinine 1.66 H Est GFR ( Amer) 38 L Est GFR (Non-Af Amer) 32 L Glucose 156 H POC Glucose TSH 0.06 L 04/08/19 15:02 Seg Neutrophils % Lymphocytes % BUN Creatinine Est GFR ( Amer) Est GFR (Non-Af Amer) Glucose POC Glucose 151 H TSH Critical Care Note - Critical Care Note Total time excluding time spent on procedures (mins): 40 Comments: Critical care time 40 exclusive from separate billable procedures for a patient requiring complex medical decision making, and high potential for clinical deterioration. Time spent obtaining history from patient or surrogate, discussions with consultants, development of treatment plan with patient or surrogate, evaluation of patient's response to treatment, examination of patient, ordering and performing treatments and interventions, ordering and review of laboratory studies, re-evaluation of patient's condition, ordering and review of radiographic studies and review of old charts Discharge - Discharge Clinical Impression: Dehydration, Acute kidney injury Syncope Qualifiers: Syncope type: unspecified Qualified Code(s): R55 - Syncope and collapse Closed head injury Qualifiers: Encounter type: initial encounter Qualified Code(s): S09.90XA - Unspecified injury of head, initial encounter Hypotension Qualifiers: Hypotension type: other hypotension type Qualified Code(s): I95.89 - Other hypotension Condition: Stable Disposition: ADMITTED INPATIENT Admitting Provider: Gustavo (Hospitalist) Unit Admitted: IMCU Referrals: OSWALD SILVA DO [Primary Care Provider] - Follow up as needed
[2019-04-08 15:09] LABS: CREATINE KINASE MB 0.62 ng/mL (<4.55)
[2019-04-08 15:11] LABS: TROPONIN I < 0.012 ng/mL
[2019-04-08] MEDS ORDERED: NOREPINEPHRINE BITARTRATE INJ/PF 4 MG/4 ML SDV IV ONE (15:13)
[2019-04-08 15:15] LABS: VENOUS BLOOD BASE EXCESS -0.8 mmol/L; VENOUS BLOOD HCO3 26.2 mmol/L (20-32); VENOUS BLOOD PCO2 54.8 mmHg (35-63); VENOUS BLOOD PH 7.3 (7.30-7.42)
--- NOTE | 2019-04-08 15:51 | RADIOLOGY REPORT (SQ) ---
EXAM DESCRIPTION: CHEST SINGLE VIEW COMPLETED DATE/TIME: 04/08/2019 3:36 pm REASON FOR STUDY: syncope COMPARISON: 08/21/2018 EXAM PARAMETERS: NUMBER OF VIEWS: One view. TECHNIQUE: Single frontal radiographic view of the chest acquired. RADIATION DOSE: NA LIMITATIONS: None. FINDINGS: LUNGS AND PLEURA: No opacities, masses or pneumothorax. No pleural effusion. MEDIASTINUM AND HILAR STRUCTURES: No masses. Contour normal. HEART AND VASCULAR STRUCTURES: Cardiomegaly. BONES: No acute findings. HARDWARE: None in the chest. OTHER: No other significant finding. IMPRESSION: Cardiomegaly without acute abnormality of the lungs in AP projection. TECHNICAL DOCUMENTATION: JOB ID: [id number] [email or web address]- All Rights Reserved Reading location - IP/workstation name: [email or web address]
--- NOTE | 2019-04-08 15:54 | RADIOLOGY REPORT (SQ) ---
EXAM DESCRIPTION: SHOULDER LEFT 2 OR MORE VIEWS COMPLETED DATE/TIME: 04/08/2019 3:36 pm REASON FOR STUDY: trauma COMPARISON: None. NUMBER OF VIEWS: Three views. TECHNIQUE: Internal rotation, external rotation, and Y view images acquired of the left shoulder. LIMITATIONS: None. FINDINGS: MINERALIZATION: Osteopenia. BONES: No acute fracture. No worrisome bone lesions. JOINTS: No dislocation. VISUALIZED LUNGS AND RIBS: No pneumothorax. No rib fracture. SOFT TISSUES: No radiopaque foreign body. OTHER: No other significant finding. IMPRESSION: Osteopenia without fracture or dislocation of the left shoulder. TECHNICAL DOCUMENTATION: JOB ID: [id number] [employer]- All Rights Reserved Reading location - IP/workstation name: [email or web address]
--- NOTE | 2019-04-08 15:55 | RADIOLOGY REPORT (SQ) ---
EXAM DESCRIPTION: PELVIS AP COMPLETED DATE/TIME: 04/08/2019 3:36 pm REASON FOR STUDY: trauma COMPARISON: None. NUMBER OF VIEWS: One view TECHNIQUE: AP Pelvis LIMITATIONS: None. FINDINGS: MINERALIZATION: Normal. HIPS: No acute fracture or dislocation. No worrisome bone lesions. PELVIS AND SACRUM: No acute fracture or dislocation. No worrisome bone lesions. PUBIS AND ISCHIUM: No acute fracture. SOFT TISSUES: No findings. OTHER: No other significant finding. IMPRESSION: No fracture or dislocation of the pelvis or proximal femurs on single AP radiograph. Pl ease note that plain radiographs are insensitive for hip or pelvic fracture. COMMENT: Pelvic fractures are often occult on plain radiographs. If strong clinical suspicion for f racture, recommend CT or MR. TECHNICAL DOCUMENTATION: JOB ID: [id number] [employer]- All Rights Reserved Reading location - IP/workstation name: [email or web address]
[2019-04-08 16:12] LABS: APPEARANCE,URINE SLIGHTLY-CLOUDY; BILIRUBIN,URINE NEGATIVE (NEGATIVE); COLOR,URINE YELLOW; GLUCOSE, URINE NEGATIVE (NEGATIVE); KETONES,URINE NEGATIVE (NEGATIVE); LEUKOCYTE ESTERASE,URINE NEGATIVE (NEGATIVE); NITRITE,URINE NEGATIVE (NEGATIVE); PROTEIN,URINE NEGATIVE (NEGATIVE); UROBILINOGEN,URINE NEGATIVE mg/dL (<2.0)
--- NOTE | 2019-04-08 17:14 | RADIOLOGY REPORT (SQ) ---
EXAM DESCRIPTION: CT HEAD WITHOUT COMPLETED DATE/TIME: 04/08/2019 4:37 pm REASON FOR STUDY: trauma COMPARISON: None. TECHNIQUE: Axial images acquired through the brain without intravenous contrast. Images reviewed wi th bone, brain and subdural windows. Images stored on PACS. All CT scanners at this facility use dose modulation, iterative reconstruction, and/or weight based d osing when appropriate to reduce radiation dose to as low as reasonably achievable (ALARA). [facility]: Dose Right [facility]: CareDose [facility]: Dose Right [facility]: Teradose 4D [facility]: [employer] RADIATION DOSE: CT Rad equipment meets quality standard of care and radiation dose reduction techniq ues were employed. CTDIvol: 53.2 mGy. DLP: 1017 mGy-cm. mGy. LIMITATIONS: None. FINDINGS: VENTRICLES: Normal size and contour. CEREBRUM: No masses. No hemorrhage. No midline shift. No evidence for acute infarction. Normal gra y/white matter differentiation. No areas of low density in the white matter. CEREBELLUM: No masses. No hemorrhage. No alteration of density. No evidence for acute infarction. EXTRAAXIAL SPACES: No fluid collections. No masses. ORBITS AND GLOBE: No intra- or extraconal masses. Normal contour of globe without masses. CALVARIUM: No fracture. PARANASAL SINUSES: No fluid or mucosal thickening. SOFT TISSUES: No mass or hematoma. OTHER: No other significant finding. IMPRESSION: No acute intracranial findings. EVIDENCE OF ACUTE STROKE: NO. COMMENT: Quality ID # [id number]: Final reports with documentation of one or more dose reduction techniques (e.g., Automated exposure control, adjustment of the mA and/or kV according to patient size, use of iterative reconstruction technique) TECHNICAL DOCUMENTATION: JOB ID: [id number] [place]-72 2010 [employer]- All Rights Reserved Reading location - IP/workstation name: [email or web address]
--- NOTE | 2019-04-08 17:16 | RADIOLOGY REPORT (SQ) ---
EXAM DESCRIPTION: CT FACIAL AREA WITHOUT COMPLETED DATE/TIME: 04/08/2019 4:36 pm REASON FOR STUDY: trauma COMPARISON: None. TECHNIQUE: Noncontrasted images through the facial bones and orbits windowed for bone and soft tissu e. Additional coronal and sagittal reconstructed images reviewed. All images stored on PACS. All CT scanners at this facility use dose modulation, iterative reconstruction, and/or weight based d osing when appropriate to reduce radiation dose to as low as reasonably achievable (ALARA). [facility]: Dose Right [facility]: CareDose [facility]: Dose Right [facility]: Teradose 4D [facility]: [employer] RADIATION DOSE: CT Rad equipment meets quality standard of care and radiation dose reduction techniq ues were employed. CTDIvol: 30.4 mGy. DLP: 616 mGy-cm. mGy. LIMITATIONS: None. FINDINGS: FACIAL BONES: No fracture or bone lesion. ORBITS: Intact. No fracture. Symmetric intact globes and retroorbital soft tissues. PARANASAL SINUSES: Clear. No significant mucosal thickening, mass or fluid. No nasal polyps. Maxill ashleigh sinus outlets are patent. SOFT TISSUES: No mass or edema. INFERIOR BRAIN: Limited view. No acute findings. OTHER: No other significant finding. IMPRESSION: No fracture. TECHNICAL DOCUMENTATION: JOB ID: [id number] [place]-72 Quality ID # [id number]: Final reports with documentation of one or more dose reduction techniques (e.g., Au tomated exposure control, adjustment of the mA and/or kV according to patient size, use of iterative reconstruction technique) 2010 [employer]- All Rights Reserved Reading location - IP/workstation name: [employer]
--- NOTE | 2019-04-08 17:19 | RADIOLOGY REPORT (SQ) ---
EXAM DESCRIPTION: CT CERVICAL SPINE WITHOUT COMPLETED DATE/TIME: 04/08/2019 4:35 pm REASON FOR STUDY: trauma COMPARISON: None. TECHNIQUE: Axial images acquired through the cervical spine without intravenous contrast. Images re viewed with lung, soft tissue and bone windows. Reconstructed coronal and sagittal MPR images review ed. Images stored on PACS. All CT scanners at this facility use dose modulation, iterative reconstruction, and/or weight based d osing when appropriate to reduce radiation dose to as low as reasonably achievable (ALARA). [facility]: Dose Right [facility]: CareDose [facility]: Dose Right [facility]: Teradose 4D [facility]: [employer] RADIATION DOSE: CT Rad equipment meets quality standard of care and radiation dose reduction techniq ues were employed. CTDIvol: 21.2 mGy. DLP: 560 mGy-cm. mGy. LIMITATIONS: None. FINDINGS: ALIGNMENT: Anatomic. MINERALIZATION: Normal. VERTEBRAL BODIES: No fractures or dislocation. DISCS: Multilevel disc space narrowing with osteophytes. FACETS, LATERAL MASSES, POSTERIOR ELEMENTS: Facet arthropathy. No fractures. No dislocation. No ac lory findings. HARDWARE: None in the spine. VISUALIZED RIBS: No fractures. LUNG APICES AND SOFT TISSUES: No significant or acute findings. OTHER: No other significant finding. IMPRESSION: CHRONIC DEGENERATIVE CHANGES. NO ACUTE FINDINGS. TECHNICAL DOCUMENTATION: JOB ID: [id number] [place]-72 Quality ID # [id number]: Final reports with documentation of one or more dose reduction techniques (e.g., Au tomated exposure control, adjustment of the mA and/or kV according to patient size, use of iterative reconstruction technique) 2010 [employer]- All Rights Reserved Reading location - IP/workstation name: [employer]
[2019-04-08] MEDS ORDERED: ACETAMINOPHEN 325 MG TABLET PO PRN (17:50)
[2019-04-08] MEDS ORDERED: PROMETHAZINE HCL INJ 25 MG/1 ML VIAL IV PRN (17:50)
[2019-04-08] MEDS ORDERED: MAGNESIUM HYDROXIDE SUSP 30 ML UDCUP PO PRN (17:50)
[2019-04-08] MEDS ORDERED: OXYCODONE-ACETAMINOPHEN 5-325 MG TABLET PO PRN (17:50)
[2019-04-08] MEDS ORDERED: ONDANSETRON HCL INJ/PF 4 MG/2 ML SDV IV PRN (17:50)
--- NOTE | 2019-04-08 18:25 | PDOC H&P ---
History of Present Illness Admission Date/PCP: OSWALD SILVA DO History of Present Illness: AIDE STEPHENS is a 58 year old female past medical history of thyroid cancer status post surgery, acquired hypothyroidism, hypertension, depression, asthma, osteoporosis, constipation predominant IBS brought to ED EMS after episode of syncope. Per patient this morning she was trying to get her meds, felt lightheaded, lost consciousness, fell to the ground hitting her face, fall was unwitnessed, was confused when regained consciousness, did bite her tongue and did not lose bowel and bladder control. Denies any history of seizure disorder, arrhythmia, CAD, valvular abnormalities, prior syncope, CVA, dehydration, nausea or vomiting. When EMS arrived patient was found to be hypotensive and bradycardic was started on volume resuscitation, in ED she was still hypotensive and bradycardic, and was volume resuscitated. Skeletal imaging and CT head did not show any acute abnormalities. Labs are unremarkable except for elevated creatinine. Patient denies being dehydrated, states that she drinks 3 bottles of water each day, but family states that she might be dehydrated. Did have a CT neck with contrast a week ago which may have had to do with her SHASHANK. Denies any fever, chills, nausea, vomiting, external bleeding, diarrhea, fever, chest pain, dysuria, hematuria, numbness, tingling or any weakness. Past Medical History Cardiac Medical History: Reports: Hyperlipidema, Hypertension Pulmonary Medical History: Reports: Asthma, Bronchitis Neurological Medical History: Reports: Migraine GI Medical History: Reports: Gastroesophageal Reflux Disease Musculoskeltal Medical History: Reports: Arthritis Psychiatric Medical History: Reports: Depression Past Surgical History Past Surgical History: Reports: Section - x3, Tubal Ligation Social History Smoking Status: Unknown if Ever Smoked Frequency of Alcohol Use: None Hx Recreational Drug Use: No Drugs: None Hx Prescription Drug Abuse: No Family History Family History: Arthritis, CAD, CVA, DM, Hyperlipidemia, Hypertension, Malign zack Parental Family History Reviewed: Yes Children Family History Reviewed: Yes Sibling(s) Family History Reviewed.: Yes Medication/Allergy Home Medications: Albuterol Sulfate [Proair HFA Inhalation Aerosol 8.5 gm MDI] 2 puff IH Q4HP PRN 08/22/18 Alendronate Sodium [Fosamax 70 mg Tablet] 70 mg PO SA@1000 08/22/18 Budesonide/Formoterol Fumarate [Symbicort HFA 160-4.5 mcg Inhaler 6 gm] 1 puff IH Q12 08/22/18 Bupropion HCl [Bupropion Xl] 150 mg PO DAILY 08/22/18 Cholecalciferol (Vitamin D3) [Vitamin D3 2000 unit Tablet] 2,000 unit PO DAILY 08/22/18 Docusate Sodium [Colace 100 mg Capsule] 100 mg PO DAILY MDD 2 caps 08/22/18 Ergocalciferol (Vitamin D2) [Drisdol 50,000 unit (1.25MG) Capsule] 50,000 unit PO PEREZ@1000 08/22/18 Levothyroxine Sodium [Synthroid 0.075 mg Tablet] 0.075 mg PO Q6AM 08/22/18 Linaclotide [Linzess] 290 mcg PO DAILY 08/22/18 Loratadine [Claritin 10 mg Tablet] 10 mg PO DAILY 08/22/18 Multivitamin [Tab-A-La (Multiple Vitamin) Tablet] 1 tab PO DAILY 08/22/18 Ranitidine HCl [Zantac 150 mg Tablet] 150 mg PO DAILYP PRN 08/22/18 Rosuvastatin Calcium [Crestor 20 mg Tablet] 20 mg PO QHS 08/22/18 Sertraline HCl [Zoloft 50 mg Tablet] 200 mg PO DAILY 08/22/18 Cephalexin Monohydrate [Keflex 500 mg Capsule] 500 mg PO BID #8 capsule 08/24/18 Allergies/Adverse Reactions: Penicillins Allergy (Mild, Verified 05/28/18 14:10) Review of Systems Review of Systems: as per hpi Physical Exam Vital Signs: Temp Pulse Resp BP Pulse Ox 97.7 F 68 15 120/70 99 04/08/19 14:25 04/08/19 14:25 04/08/19 17:51 04/08/19 17:51 04/08/19 17:51 Intake & Output 04/07/19 04/08/19 04/09/19 06:59 06:59 06:59 Intake Total 1000 Balance 1000 Weight 63.503 kg General appearance: PRESENT: no acute distress, well-developed, well-nourished Head exam: PRESENT: atraumatic, normocephalic Mouth exam: PRESENT: moist, tongue midline Respiratory exam: PRESENT: clear to auscultation katina. ABSENT: rales, rhonchi, wheezes Cardiovascular exam: PRESENT: RRR. ABSENT: diastolic murmur, rubs, systolic murmur GI/Abdominal exam: PRESENT: normal bowel sounds, soft. ABSENT: distended, guarding, mass, organolmegaly, rebound, tenderness Musculoskeletal exam: PRESENT: other - Left shoulder limited range of motion due to pain, no focal bony tenderness. Neurological exam: PRESENT: alert, awake, oriented to person, oriented to place, oriented to time, oriented to situation, CN II-XII grossly intact. ABSENT: motor sensory deficit Psychiatric exam: PRESENT: anxious Results Laboratory Results: 04/08/19 13:30 04/08/19 13:30 04/08/19 04/08/19 04/08/19 13:30 13:30 13:30 WBC 8.7 RBC 4.25 Hgb 12.6 Hct 37.0 MCV 87 MCH 29.7 MCHC 34.2 RDW 13.3 Plt Count 237 Seg Neutrophils % 79.5 H Lymphocytes % 12.0 L Monocytes % 5.6 Eosinophils % 2.6 Basophils % 0.3 Absolute Neutrophils 6.9 Absolute Lymphocytes 1.0 Absolute Monocytes 0.5 Absolute Eosinophils 0.2 Absolute Basophils 0.0 VBG pH VBG pCO2 VBG HCO3 VBG Base Excess Sodium 140.4 Potassium 4.0 Chloride 102 Carbon Dioxide 28 Anion Gap 10 BUN 37 H Creatinine 1.66 H Est GFR ( Amer) 38 L Est GFR (Non-Af Amer) 32 L Glucose 156 H Lactic Acid Calcium 10.1 Total Bilirubin 0.5 AST 26 ALT 20 Alkaline Phosphatase 59 Total Protein 7.6 Albumin 4.9 TSH 0.06 L Urine Color Urine Appearance Urine pH Ur Specific [place] Urine Protein Urine Glucose (UA) Urine Ketones Urine Blood Urine Nitrite Ur Leukocyte Esterase Urine WBC (Auto) Urine RBC (Auto) 04/08/19 04/08/19 04/08/19 15:04 15:04 15:53 WBC RBC Hgb Hct MCV MCH MCHC RDW Plt Count Seg Neutrophils % Lymphocytes % Monocytes % Eosinophils % Basophils % Absolute Neutrophils Absolute Lymphocytes Absolute Monocytes Absolute Eosinophils Absolute Basophils VBG pH 7.30 VBG pCO2 54.8 VBG HCO3 26.2 VBG Base Excess -0.8 Sodium Potassium Chloride Carbon Dioxide Anion Gap BUN Creatinine Est GFR ( Amer) Est GFR (Non-Af Amer) Glucose Lactic Acid 0.8 Calcium Total Bilirubin AST ALT Alkaline Phosphatase Total Protein Albumin TSH Urine Color YELLOW Urine Appearance SLIGHTLY-CLOUDY Urine pH 6.0 Ur Specific [place] 1.010 Urine Protein NEGATIVE Urine Glucose (UA) NEGATIVE Urine Ketones NEGATIVE Urine Blood NEGATIVE Urine Nitrite NEGATIVE Ur Leukocyte Esterase NEGATIVE Urine WBC (Auto) 1 Urine RBC (Auto) 0 04/08/19 04/08/19 13:30 13:30 Creatine Kinase 71 CK-MB (CK-2) 0.62 Troponin I < 0.012 Impressions: Chest X-Ray 04/08/19 14:50 IMPRESSION: Cardiomegaly without acute abnormality of the lungs in AP projection. Cervical Spine CT 04/08/19 14:51 IMPRESSION: CHRONIC DEGENERATIVE CHANGES. NO ACUTE FINDINGS. Head CT 04/08/19 14:51 IMPRESSION: No acute intracranial findings. EVIDENCE OF ACUTE STROKE: NO. Facial Bones CT 04/08/19 14:58 IMPRESSION: No fracture. Pelvis X-Ray 04/08/19 15:04 IMPRESSION: No fracture or dislocation of the pelvis or proximal femurs on single AP radiograph. Please note that plain radiographs are insensitive for hip or pelvic fracture. Shoulder X-Ray 04/08/19 15:04 IMPRESSION: Osteopenia without fracture or dislocation of the left shoulder. Assessment and Plan - Diagnosis (1) Syncope Qualifiers: Syncope type: unspecified Qualified Code(s): R55 - Syncope and collapse Is this a current diagnosis for this admission?: Yes Plan: Likely due to volume depletion. She was found to be bradycardic, does have history of hypothyroidism but stating that she is compliant with her levothyroxine. TSH 0.06. Patient also takes hydrochlorothiazide lisinopril. On reviewing her medication I noticed that she has 2 bottles of hydrochlorothiazide and lisinopril. Not sure if she evidently overdosed on her meds. Continue volume resuscitation guided by volume status and vitals, admit to telemetry. CT head negative for any acute abnormalities. Skeletal survey negative for any acute fractures. EEG to rule out an underlying seizure. PT OT ST. (2) Orthostatic hypotension Is this a current diagnosis for this admission?: Yes Plan: Likely due to volume depletion/accidental antihypertensive overdose. Patient also takes hydrochlorothiazide lisinopril. On reviewing her medication I noticed that she has 2 bottles of hydrochlorothiazide and lisinopril Not sure if she evidently overdosed on her meds. Hold antihypertensive meds. Continue volume restriction, admit to telemetry, PT OT ST. Fall, aspiration, seizure precautions. (3) Acute kidney injury Is this a current diagnosis for this admission?: Yes Plan: Likely combination of prerenal and contrast-induced nephropathy. She had a CT neck with contrast a week ago here at [facility]. Renal ultrasound, fractional excretion of sodium. Volume resuscitation guided by volume status, strict in and out, avoid nephrotoxic meds, if does not improve will consult nephrology. (4) Depression Is this a current diagnosis for this admission?: Yes Plan: Denies any suicidal or homicidal ideation. Restart home meds. (5) Hypotension Qualifiers: Hypotension type: other hypotension type Qualified Code(s): I95.89 - Other hypotension Is this a current diagnosis for this admission?: Yes Plan: Likely coming from volume depletion and antihypertensive overdose. Hold antihypertensive meds. Continue volume resuscitation guided by volume status and vitals. (6) Hypothyroidism Qualifiers: Hypothyroidism type: postoperative Qualified Code(s): E89.0 - Postprocedural hypothyroidism Is this a current diagnosis for this admission?: Yes Plan: History of thyroid cancer. Status post surgery. TSH 0.06. Continue levothyroxine. T3 and T4. Obtain records.
[2019-04-08 18:26] LABS: FREE T3 3.8 pg/mL (2.77-5.27); FREE T4 (FREE THYROXINE) 1.78 ng/dL (0.78-2.19)
[2019-04-08 18:49] LABS: URINE AMPHETAMINES SCREEN NEGATIVE; URINE BARBITURATES SCREEN NEGATIVE; URINE BENZODIAZEPINES SCREEN NEGATIVE; URINE COCAINE SCREEN NEGATIVE; URINE MARIJUANA (THC) SCREEN NEGATIVE; URINE METHADONE SCREEN NEGATIVE; URINE PHENCYCLIDINE SCREEN NEGATIVE
[2019-04-08 19:06] LABS: URINE CREATININE 116.9 mg/dL (15-278)
--- NOTE | 2019-04-08 20:39 | RADIOLOGY REPORT (SQ) ---
EXAM DESCRIPTION: RadLex: US RETROPERITONEUM CLINICAL HISTORY: 58 years Female; SHASHANK TECHNIQUE: Bilateral renal ultrasound was performed. COMPARISON: None. FINDINGS: Visualized portions of IVC and aorta are unremarkable. Right kidney: 10.2 x 3 x 5.3 cm. No hydronephrosis or shadowing calculi. Left kidney: 11 x 5.4 x 5.1 cm. No hydronephrosis or shadowing calculi. Bladder: Decompressed by Tejada catheter IMPRESSION: 1. Normal renal sonogram.
[2019-04-08] MEDS: IPRATROPIUM/ALBUTEROL 0.5-2.5 MG/3 ML AMPUL NEB SCH (20:42)
[2019-04-08] MEDS: NORMAL SALINE 1000 ML 1,000 ML IV PRN (21:41)
[2019-04-08] MEDS: BUPROPION HCL 75 MG TABLET PO SCH (21:47)
[2019-04-08] MEDS: FAMOTIDINE 20 MG TABLET PO SCH (21:47)
[2019-04-08] MEDS: ATORVASTATIN CALCIUM 40 MG TABLET PO SCH (21:47)
--- NOTE | 2019-04-08 22:26 | EKG REPORT ---
SEVERITY:- NORMAL ECG - SINUS RHYTHM : Confirmed by: Fabio Sims 08-Apr-2019 22:26:03
[2019-04-09] MEDS: IPRATROPIUM/ALBUTEROL 0.5-2.5 MG/3 ML AMPUL NEB SCH ×4 (02:22→19:54)
[2019-04-09] MEDS: NORMAL SALINE 1000 ML 1,000 ML IV PRN ×3 (04:31→22:02)
[2019-04-09 05:35] LABS: ABSOLUTE EOSINOPHILS # (AUTO) 0.4 10^3/uL (0.0-0.6); ABSOLUTE LYMPHOCYTES (AUTO) 1.6 10^3/uL (0.5-4.7); ABSOLUTE MONOCYTES (AUTO) 0.5 10^3/uL (0.1-1.4); ABSOLUTE NEUT (AUTO) 3.7 10^3/uL (1.7-8.2); BASOPHILS % (AUTO) 0.6 % (0-2); EOSINOPHILS % (AUTO) 5.9 % (0-6); LYMPHOCYTES % (AUTO) 25.6 % (13-45); MEAN CORPUSCULAR HEMOGLOBIN 30.2 pg (27.0-33.4); MEAN CORPUSCULAR HGB CONC 34.3 g/dL (32.0-36.0); MEAN CORPUSCULAR VOLUME 88 fl (80-97); MONOCYTES % (AUTO) 7.6 % (3-13); PLATELET COUNT 133 10^3/uL (150-450); RED BLOOD COUNT 2.96 10^6/uL (3.72-5.28); RED CELL DISTRIBUTION WIDTH 13.1 % (11.5-14.0); SEGMENTED NEUTROPHILS % (AUTO) 60.3 % (42-78); TOTAL CELLS COUNTED % (AUTO) 100 %; WHITE BLOOD COUNT 6.2 10^3/uL (4.0-10.5)
[2019-04-09 05:52] LABS: HEMOGLOBIN 8.9 g/dL (12.0-15.5)
[2019-04-09 05:55] LABS: ANION GAP 6 (5-19); BLOOD UREA NITROGEN 24 mg/dL (7-20); CALCIUM 7.7 mg/dL (8.4-10.2); CARBON DIOXIDE 24 mmol/L (22-30); CHLORIDE 112 mmol/L (98-107); GLUCOSE 85 mg/dL (75-110); POTASSIUM 3.4 mmol/L (3.6-5.0); SODIUM 142.2 mmol/L (137-145)
[2019-04-09] MEDS: LEVOTHYROXINE SODIUM 0.075 MG TABLET PO SCH (06:33)
[2019-04-09] MEDS ORDERED: CALCIUM GLUCONATE 1000 MG/10 ML INJ IV ONE (08:30)
[2019-04-09] MEDS: DOCUSATE SODIUM 100 MG CAPSULE PO SCH (09:08)
[2019-04-09] MEDS: LUBIPROSTONE 24 MCG CAPSULE PO SCH (09:08)
[2019-04-09] MEDS: BUPROPION HCL 75 MG TABLET PO SCH (09:08)
[2019-04-09] MEDS: ASPIRIN 81 MG TABLET, CHEWABLE PO SCH (09:08)
[2019-04-09] MEDS: FAMOTIDINE 20 MG TABLET PO SCH ×2 (09:08→21:03)
[2019-04-09] MEDS ORDERED: SERTRALINE HCL 50 MG TABLET PO SCH (10:00)
[2019-04-09] MEDS ORDERED: ENOXAPARIN SODIUM INJ 30 MG/0.3 ML DISP.SYRIN SUBCUT SCH (10:00)
[2019-04-09] MEDS ORDERED: POTASSIUM CHLORIDE 10 MEQ CAPSULE.ER PO ONE (10:57)
--- NOTE | 2019-04-09 11:00 | PDOC PROGRESS REPORT ---
Subjective Progress Note for:: 04/09/19 Subjective:: AIDE STEPHENS is a 58 year old female past medical history of thyroid cancer status post surgery, acquired hypothyroidism, hypertension, depression, asthma, osteoporosis, constipation predominant IBS brought to ED EMS after episode of syncope. Per patient this morning she was trying to get her meds, felt lightheaded, lost consciousness, fell to the ground hitting her face, fall was unwitnessed, was confused when regained consciousness, did bite her tongue and did not lose bowel and bladder control. Denies any history of seizure disorder, arrhythmia, CAD, valvular abnormalities, prior syncope, CVA, dehydration, nausea or vomiting. When EMS arrived patient was found to be hypotensive and bradycardic was started on volume resuscitation, in ED she was still hypotensive and bradycardic, and was volume resuscitated. Skeletal imaging and CT head did not show any acute abnormalities. Labs are unremarkable except for elevated creatinine. Patient denies being dehydrated, states that she drinks 3 bottles of water each day, but family states that she might be dehydrated. Did have a CT neck with contrast a week ago which may have had to do with her SHASHANK. Denies any fever, chills, nausea, vomiting, external bleeding, diarrhea, fever, chest pain, dysuria, hematuria, numbness, tingling or any weakness. Reason For Visit: SYNCOPE,SHASHANK,HYPOTENSION Physical Exam Vital Signs: Temp Pulse Resp BP Pulse Ox 97.6 F 50 L 16 88/53 L 97 04/09/19 07:35 04/09/19 07:59 04/09/19 07:59 04/09/19 07:35 04/09/19 07:59 Intake & Output 04/08/19 04/09/19 04/10/19 06:59 06:59 06:59 Intake Total 2000 582 Output Total 1150 Balance 850 582 Weight 63.503 kg General appearance: PRESENT: no acute distress, well-developed, well-nourished Head exam: PRESENT: atraumatic, normocephalic Neck exam: ABSENT: carotid bruit, JVD, lymphadenopathy, thyromegaly Respiratory exam: PRESENT: clear to auscultation katina. ABSENT: rales, rhonchi, wheezes Cardiovascular exam: PRESENT: RRR. ABSENT: diastolic murmur, rubs, systolic murmur GI/Abdominal exam: PRESENT: normal bowel sounds, soft. ABSENT: distended, guarding, mass, organolmegaly, rebound, tenderness Extremities exam: PRESENT: full ROM, tenderness - Bilateral shoulders TTP.. ABSENT: calf tenderness, clubbing, pedal edema Musculoskeletal exam: PRESENT: tenderness Neurological exam: PRESENT: alert, awake, oriented to person, oriented to place, oriented to time, oriented to situation, CN II-XII grossly intact. ABSENT: motor sensory deficit Skin exam: PRESENT: abrasion - Bilateral elbows, knees and nose. Results Laboratory Results: 04/09/19 05:03 04/09/19 05:03 04/08/19 04/08/19 04/08/19 13:30 13:30 13:30 WBC 8.7 RBC 4.25 Hgb 12.6 Hct 37.0 MCV 87 MCH 29.7 MCHC 34.2 RDW 13.3 Plt Count 237 Seg Neutrophils % 79.5 H Lymphocytes % 12.0 L Monocytes % 5.6 Eosinophils % 2.6 Basophils % 0.3 Absolute Neutrophils 6.9 Absolute Lymphocytes 1.0 Absolute Monocytes 0.5 Absolute Eosinophils 0.2 Absolute Basophils 0.0 VBG pH VBG pCO2 VBG HCO3 VBG Base Excess Sodium 140.4 Potassium 4.0 Chloride 102 Carbon Dioxide 28 Anion Gap 10 BUN 37 H Creatinine 1.66 H Est GFR ( Amer) 38 L Est GFR (Non-Af Amer) 32 L Glucose 156 H Lactic Acid Calcium 10.1 Magnesium Total Bilirubin 0.5 AST 26 ALT 20 Alkaline Phosphatase 59 Total Protein 7.6 Albumin 4.9 TSH 0.06 L Free T4 Free T3 pg/mL Urine Color Urine Appearance Urine pH Ur Specific [place] Urine Protein Urine Glucose (UA) Urine Ketones Urine Blood Urine Nitrite Ur Leukocyte Esterase Urine WBC (Auto) Urine RBC (Auto) 04/08/19 04/08/19 04/08/19 13:30 15:04 15:04 WBC RBC Hgb Hct MCV MCH MCHC RDW Plt Count Seg Neutrophils % Lymphocytes % Monocytes % Eosinophils % Basophils % Absolute Neutrophils Absolute Lymphocytes Absolute Monocytes Absolute Eosinophils Absolute Basophils VBG pH 7.30 VBG pCO2 54.8 VBG HCO3 26.2 VBG Base Excess -0.8 Sodium Potassium Chloride Carbon Dioxide Anion Gap BUN Creatinine Est GFR ( Amer) Est GFR (Non-Af Amer) Glucose Lactic Acid 0.8 Calcium Magnesium Total Bilirubin AST ALT Alkaline Phosphatase Total Protein Albumin TSH Free T4 1.78 Free T3 pg/mL 3.80 Urine Color Urine Appearance Urine pH Ur Specific [place] Urine Protein Urine Glucose (UA) Urine Ketones Urine Blood Urine Nitrite Ur Leukocyte Esterase Urine WBC (Auto) Urine RBC (Auto) 04/08/19 04/09/19 04/09/19 15:53 05:03 05:03 WBC 6.2 RBC 2.96 L Hgb 8.9 L D Hct 26.0 L MCV 88 MCH 30.2 MCHC 34.3 RDW 13.1 Plt Count 133 L Seg Neutrophils % 60.3 Lymphocytes % 25.6 Monocytes % 7.6 Eosinophils % 5.9 Basophils % 0.6 Absolute Neutrophils 3.7 Absolute Lymphocytes 1.6 Absolute Monocytes 0.5 Absolute Eosinophils 0.4 Absolute Basophils 0.0 VBG pH VBG pCO2 VBG HCO3 VBG Base Excess Sodium 142.2 Potassium 3.4 L Chloride 112 H Carbon Dioxide 24 Anion Gap 6 BUN 24 H Creatinine 0.98 Est GFR ( Amer) > 60 Est GFR (Non-Af Amer) 58 L Glucose 85 Lactic Acid Calcium 7.7 L Magnesium 2.0 Total Bilirubin AST ALT Alkaline Phosphatase Total Protein Albumin TSH Free T4 Free T3 pg/mL Urine Color YELLOW Urine Appearance SLIGHTLY-CLOUDY Urine pH 6.0 Ur Specific [place] 1.010 Urine Protein NEGATIVE Urine Glucose (UA) NEGATIVE Urine Ketones NEGATIVE Urine Blood NEGATIVE Urine Nitrite NEGATIVE Ur Leukocyte Esterase NEGATIVE Urine WBC (Auto) 1 Urine RBC (Auto) 0 04/08/19 04/08/19 13:30 13:30 Creatine Kinase 71 CK-MB (CK-2) 0.62 Troponin I < 0.012 Impressions: Renal Ultrasound 04/08/19 00:00 IMPRESSION: 1. Normal renal sonogram. Chest X-Ray 04/08/19 14:50 IMPRESSION: Cardiomegaly without acute abnormality of the lungs in AP projection. Cervical Spine CT 04/08/19 14:51 IMPRESSION: CHRONIC DEGENERATIVE CHANGES. NO ACUTE FINDINGS. Head CT 04/08/19 14:51 IMPRESSION: No acute intracranial findings. EVIDENCE OF ACUTE STROKE: NO. Facial Bones CT 04/08/19 14:58 IMPRESSION: No fracture. Pelvis X-Ray 04/08/19 15:04 IMPRESSION: No fracture or dislocation of the pelvis or proximal femurs on single AP radiograph. Please note that plain radiographs are insensitive for hip or pelvic fracture. Shoulder X-Ray 04/08/19 15:04 IMPRESSION: Osteopenia without fracture or dislocation of the left shoulder. Assessment and Plan - Diagnosis (1) Syncope Qualifiers: Syncope type: unspecified Qualified Code(s): R55 - Syncope and collapse Is this a current diagnosis for this admission?: Yes Plan: Likely due to volume depletion. She was found to be bradycardic, does have history of hypothyroidism but stating that she is compliant with her levothyroxine. TSH 0.06. Patient also takes hydrochlorothiazide lisinopril. On reviewing her medication I noticed that she has 2 bottles of hydrochlorothiazide and lisinopril. Not sure if she accidentally overdosed on her meds. Continue volume resuscitation guided by volume status and vitals, admit to telemetry. CT head negative for any acute abnormalities. Skeletal survey negative for any acute fractures. EEG to rule out an underlying seizure. PT OT ST. (2) Orthostatic hypotension Is this a current diagnosis for this admission?: Yes Plan: Likely due to volume depletion/accidental antihypertensive overdose. Patient also takes hydrochlorothiazide lisinopril. On reviewing her medication I noticed that she has 2 bottles of hydrochlorothiazide and lisinopril Not sure if she accidentally overdosed on her meds. Hold antihypertensive meds. Continue volume restriction, admit to telemetry, PT OT ST. Fall, aspiration, seizure precautions. (3) Acute kidney injury Is this a current diagnosis for this admission?: Yes Plan: Prerenal. Fraction excretion of sodium less than 1. Creatinine WNL. Likely combination of prerenal and contrast-induced nephropathy. She had a CT neck with contrast a week ago here at [facility]. Renal ultrasound, fractional excretion of sodium. Volume resuscitation guided by volume status, strict in and out, avoid nephrotoxic meds, if does not improve will consult nephrology. (4) Depression Is this a current diagnosis for this admission?: Yes Plan: Denies any suicidal or homicidal ideation. Restart home meds. (5) Hypotension Qualifiers: Hypotension type: other hypotension type Qualified Code(s): I95.89 - Other hypotension Is this a current diagnosis for this admission?: Yes Plan: Likely coming from volume depletion and antihypertensive overdose. Hold antihypertensive meds. Continue volume resuscitation guided by volume status and vitals. (6) Hypothyroidism Qualifiers: Hypothyroidism type: postoperative Qualified Code(s): E89.0 - Postprocedural hypothyroidism Is this a current diagnosis for this admission?: Yes Plan: History of thyroid cancer. Status post surgery. TSH 0.06. T3, T4 WNL. Continue levothyroxine.
[2019-04-09 11:12] LABS: ABSOLUTE RETICS # 0.047 10^6/uL (0.028-0.122); RETICULOCYTE COUNT (AUTO) 1.56 % (0.66-2.85)
[2019-04-09 11:33] LABS: IRON(TIBC) 21.7 ug/dL (37-170)
[2019-04-09] MEDS: ENOXAPARIN SODIUM INJ 40 MG/0.4 ML DISP.SYRIN SUBCUT SCH (12:00)
[2019-04-09] MEDS ORDERED: BENZTROPINE MESYLATE INJ 2 MG/2 ML AMPULE IM PRN (12:30)
[2019-04-09 12:47] LABS: FOLATE > 20.00 ng/mL (>2.76)
[2019-04-09] MEDS ORDERED: (PENDING PHARMACY ID) (Alendronate Sodium [Fosamax 70 Mg Tablet] 70 MG) PO SCH (14:00)
[2019-04-09] MEDS: MEGESTROL ACETATE SUSP 400 MG/10 ML UDCUP PO SCH (17:07)
[2019-04-09] MEDS: SERTRALINE HCL 50 MG TABLET PO SCH (17:07)
[2019-04-09] MEDS: CARBIDOPA/LEVODOPA 25-100 MG TABLET PO SCH ×2 (17:07→21:03)
[2019-04-09] MEDS: MIRTAZAPINE 15 MG TABLET PO SCH (21:03)
[2019-04-09] MEDS: ATORVASTATIN CALCIUM 40 MG TABLET PO SCH (21:03)
[2019-04-09] MEDS ORDERED: (PENDING PHARMACY ID) (Rosuvastatin Calcium [Crestor 20 Mg Tablet] 20 MG) PO SCH (22:00)
[2019-04-10] MEDS: IPRATROPIUM/ALBUTEROL 0.5-2.5 MG/3 ML AMPUL NEB SCH ×4 (02:36→20:28)
[2019-04-10] MEDS: NORMAL SALINE 1000 ML 1,000 ML IV PRN (02:57)
--- NOTE | 2019-04-10 05:27 | NEURO WORKBENCH EEG REPORT ---
EEG Report Patient: Cecilia Chairez ID: [id number] Referring Doctor: Danny Chen Date: 04/09/2019 Reason for study: Syncope, Evaluate Epileptiform activity Medications: Duoneb, Aspirin, Lipitor, Buproprion, Colace, Pepcid, Synthroid, Amitiza, Zoloft History: This is a 58 year old female with a history of migraines, hypercholesterolemia, HTN, asthma, bronchitis, GERD, IBS, thyroid cancer s/p thyroid surgery, depression, and anxiety who presented with an episode of syncope preceded by a feeling of dizziness. This EEG was requested for evaluation of epileptiform activity. EEG Interpretation: This EEG was recorded during wakefulness, stage I, and minimal stage II sleep. The awake EEG is characterized by a background of diffuse low amplitude beta activity. The EEG is reactive to eye opening and closure, but there is not a well developed posterior dominant rhythm (PDR); instead upon eye closure the background consists of more clearly formed posterior dominant low amplitude beta activity commonly in the 14-18 Hz range. There was frequent low amplitude frontally predominant EMG artifact. The remainder of the background consisted intermittent, typically mostly global (and sometimes more bi-temporal or bi- central), fragmentary theta and alpha activity (typically in 7-8 Hz range). The EEG is symmetric in amplitudes and frequencies. Stage I sleep is characterized by slow rolling eye movements, the appearance of more intermittent global theta and alpha activity, and vertex waves (which had a slight frontal predominance). Stage II sleep was achieved with K-complexes, but no definitive sleep spindles were present. Photic stimulation resulted in minimal, low amplitude photic driving, and there was no epileptiform activity elicited with photic stimulation. There were no epileptiform abnormalities (no sharp waves and no spikes). There were no seizures. The EKG showed minor bradycardia and a regular rhythm of typically 50-60 beats per minute. EEG Impression: This EEG is mildly abnormal due to a background of predominantly diffuse low amplitude beta activity. Diffuse beta activity is commonly seen (but not exclusively seen) with sedating medications such as benzodiazepines and barbiturates; clinical correlation is needed as neither of these medication classes are listed in the current medications. There was no epileptiform activity or seizures. A single normal routine EEG does not rule out the possibility of epilepsy. If there is high clinical suspicion for epilepsy, then additional EEG evaluation should be considered with a sleep-deprived EEG or more prolonged EEG monitoring. INTERPRETING NEUROLOGIST: Noé Finley MD Board certified by the [place] [employer] in Neurology, Clinical Neurophysiology, and Sleep Medicine [facility]PITALKarel
[2019-04-10] MEDS ORDERED: LEVOTHYROXINE SODIUM 0.075 MG TABLET PO SCH (06:00)
[2019-04-10] MEDS: CARBIDOPA/LEVODOPA 25-100 MG TABLET PO SCH ×3 (06:32→21:24)
[2019-04-10] MEDS: LEVOTHYROXINE SODIUM 0.075 MG TABLET PO SCH (06:32)
[2019-04-10 08:04] LABS: ABSOLUTE EOSINOPHILS # (AUTO) 0.4 10^3/uL (0.0-0.6); ABSOLUTE LYMPHOCYTES (AUTO) 1.6 10^3/uL (0.5-4.7); ABSOLUTE MONOCYTES (AUTO) 0.5 10^3/uL (0.1-1.4); ABSOLUTE NEUT (AUTO) 4.1 10^3/uL (1.7-8.2); BASOPHILS % (AUTO) 0.4 % (0-2); EOSINOPHILS % (AUTO) 5.6 % (0-6); HEMOGLOBIN 9.5 g/dL (12.0-15.5); MEAN CORPUSCULAR HEMOGLOBIN 29.9 pg (27.0-33.4); MEAN CORPUSCULAR VOLUME 88 fl (80-97); MONOCYTES % (AUTO) 7.3 % (3-13); PLATELET COUNT 141 10^3/uL (150-450); RED BLOOD COUNT 3.19 10^6/uL (3.72-5.28); RED CELL DISTRIBUTION WIDTH 13.3 % (11.5-14.0); SEGMENTED NEUTROPHILS % (AUTO) 62.7 % (42-78); TOTAL CELLS COUNTED % (AUTO) 100 %; WHITE BLOOD COUNT 6.5 10^3/uL (4.0-10.5)
[2019-04-10 08:21] LABS: BLOOD UREA NITROGEN 11 mg/dL (7-20); CALCIUM 7.5 mg/dL (8.4-10.2); GLUCOSE 84 mg/dL (75-110); POTASSIUM 4.1 mmol/L (3.6-5.0)
[2019-04-10 08:26] LABS: CARBON DIOXIDE 24 mmol/L (22-30); CHLORIDE 117 mmol/L (98-107); SODIUM 145.3 mmol/L (137-145)
[2019-04-10 08:31] LABS: ANION GAP 4 (5-19)
[2019-04-10] MEDS: FAMOTIDINE 20 MG TABLET PO SCH ×2 (09:15→21:25)
[2019-04-10] MEDS: LUBIPROSTONE 24 MCG CAPSULE PO SCH (09:15)
[2019-04-10] MEDS: MULTIVITAMIN TABLET PO SCH (09:16)
[2019-04-10] MEDS: SERTRALINE HCL 50 MG TABLET PO SCH (09:16)
[2019-04-10] MEDS: ENOXAPARIN SODIUM INJ 40 MG/0.4 ML DISP.SYRIN SUBCUT SCH (09:16)
[2019-04-10] MEDS: FERROUS SULFATE 325 MG TABLET PO SCH (09:16)
[2019-04-10] MEDS: ASPIRIN 81 MG TABLET, CHEWABLE PO SCH (09:16)
[2019-04-10] MEDS: DOCUSATE SODIUM 100 MG CAPSULE PO SCH (09:16)
[2019-04-10] MEDS: MEGESTROL ACETATE SUSP 400 MG/10 ML UDCUP PO SCH (09:18)
[2019-04-10] MEDS ORDERED: ENOXAPARIN SODIUM INJ 30 MG/0.3 ML DISP.SYRIN SUBCUT SCH (10:00)
[2019-04-10] MEDS ORDERED: (PENDING PHARMACY ID) (Sertraline Hcl [Zoloft] 200 MG) PO SCH (10:00)
--- NOTE | 2019-04-10 10:23 | PDOC PROGRESS REPORT ---
Subjective Progress Note for:: 04/10/19 Subjective:: AIDE STEPHENS is a 58 year old female past medical history of thyroid cancer status post surgery, acquired hypothyroidism, hypertension, depression, asthma, osteoporosis, constipation predominant IBS brought to ED EMS after episode of syncope. Per patient this morning she was trying to get her meds, felt lightheaded, lost consciousness, fell to the ground hitting her face, fall was unwitnessed, was confused when regained consciousness, did bite her tongue and did not lose bowel and bladder control. Denies any history of seizure disorder, arrhythmia, CAD, valvular abnormalities, prior syncope, CVA, dehydration, nausea or vomiting. When EMS arrived patient was found to be hypotensive and bradycardic was started on volume resuscitation, in ED she was still hypotensive and bradycardic, and was volume resuscitated. Skeletal imaging and CT head did not show any acute abnormalities. Labs are unremarkable except for elevated creatinine. Patient denies being dehydrated, states that she drinks 3 bottles of water each day, but family states that she might be dehydrated. Did have a CT neck with contrast a week ago which may have had to do with her SHASHANK. Denies any fever, chills, nausea, vomiting, external bleeding, diarrhea, fever, chest pain, dysuria, hematuria, numbness, tingling or any weakness. 04/10/2019. No acute events overnight, patient complaining of bilateral shoulder, pain otherwise no complaints. Denying any fever, chills, nausea, vomiting, diarrhea, constipation or any urinary symptoms. Reason For Visit: SYNCOPE,SHASHANK,HYPOTENSION Physical Exam Vital Signs: Temp Pulse Resp BP Pulse Ox 98.2 F 60 18 114/61 96 04/10/19 07:24 04/10/19 08:15 04/10/19 08:15 04/10/19 07:24 04/10/19 08:15 Intake & Output 04/09/19 04/10/19 04/11/19 06:59 06:59 06:59 Intake Total 1999 3055 Output Total 1150 2250 Balance 850 805 Weight 63.503 kg 65.1 kg General appearance: PRESENT: no acute distress, well-developed, well-nourished Head exam: PRESENT: atraumatic, normocephalic Respiratory exam: PRESENT: clear to auscultation katina. ABSENT: rales, rhonchi, wheezes Cardiovascular exam: PRESENT: RRR. ABSENT: diastolic murmur, rubs, systolic murmur GI/Abdominal exam: PRESENT: normal bowel sounds, soft. ABSENT: distended, guarding, mass, organolmegaly, rebound, tenderness Neurological exam: PRESENT: alert, awake, oriented to person, oriented to place, oriented to time, oriented to situation, CN II-XII grossly intact. ABSENT: motor sensory deficit Psychiatric exam: PRESENT: flat affect Results Laboratory Results: 04/10/19 07:51 04/10/19 07:51 04/09/19 04/09/19 04/10/19 05:03 05:03 07:51 WBC 6.5 RBC 3.19 L Hgb 9.5 L Hct 28.0 L MCV 88 MCH 29.9 MCHC 34.0 RDW 13.3 Plt Count 141 L Seg Neutrophils % 62.7 Lymphocytes % 24.0 Monocytes % 7.3 Eosinophils % 5.6 Basophils % 0.4 Absolute Neutrophils 4.1 Absolute Lymphocytes 1.6 Absolute Monocytes 0.5 Absolute Eosinophils 0.4 Absolute Basophils 0.0 Retic Count (auto) 1.56 Absolute Retic 0.047 Sodium Potassium Chloride Carbon Dioxide Anion Gap BUN Creatinine Est GFR ( Amer) Est GFR (Non-Af Amer) Glucose Calcium Magnesium Iron 21.7 L TIBC 237 L % Saturation 9 Ferritin 227.00 Vitamin B12 917.0 Folate > 20.00 04/10/19 07:51 WBC RBC Hgb Hct MCV MCH MCHC RDW Plt Count Seg Neutrophils % Lymphocytes % Monocytes % Eosinophils % Basophils % Absolute Neutrophils Absolute Lymphocytes Absolute Monocytes Absolute Eosinophils Absolute Basophils Retic Count (auto) Absolute Retic Sodium 145.3 H Potassium 4.1 Chloride 117 H Carbon Dioxide 24 Anion Gap 4 L BUN 11 Creatinine 0.65 Est GFR ( Amer) > 60 Est GFR (Non-Af Amer) > 60 Glucose 84 Calcium 7.5 L Magnesium 1.9 Iron TIBC % Saturation Ferritin Vitamin B12 Folate 04/08/19 04/08/19 13:30 13:30 Creatine Kinase 71 CK-MB (CK-2) 0.62 Troponin I < 0.012 Impressions: Renal Ultrasound 04/08/19 00:00 IMPRESSION: 1. Normal renal sonogram. Chest X-Ray 04/08/19 14:50 IMPRESSION: Cardiomegaly without acute abnormality of the lungs in AP projec tion. Cervical Spine CT 04/08/19 14:51 IMPRESSION: CHRONIC DEGENERATIVE CHANGES. NO ACUTE FINDINGS. Head CT 04/08/19 14:51 IMPRESSION: No acute intracranial findings. EVIDENCE OF ACUTE STROKE: NO. Facial Bones CT 04/08/19 14:58 IMPRESSION: No fracture. Pelvis X-Ray 04/08/19 15:04 IMPRESSION: No fracture or dislocation of the pelvis or proximal femurs on single AP radiograph. Please note that plain radiographs are insensitive for hip or pelvic fracture. Shoulder X-Ray 04/08/19 15:04 IMPRESSION: Osteopenia without fracture or dislocation of the left shoulder. Assessment and Plan - Diagnosis (1) Parkinsonian features Is this a current diagnosis for this admission?: Yes Plan: Patient has parkinsonian features such as affect flat affect, bradykinesia, cogwheel rigidity and postural hypotension as well as positive family history of Parkinson's disease. Also noted to have postural hypotension even after being properly volume resuscitated. She denies any history of CVA, trauma, underlying neurologic disorder however fo r the last 3 years she has developed progressively worsening balance problem multiple falls as a result she has been a cane to walk and for the last 6 months she has been a Rollator dependent. As per patient she was evaluated by neurologist and was diagnosed with obstructive sleep apnea. Since being started on carbidopa-levodopa yesterday her rigidity has improved mildly. Unfortunately no neurology consult available at [facility]. Patient will greatly benefit from being evaluated by neurologist as outpatient to be worked up for any neurodegenerative disorder. (2) Syncope Qualifiers: Syncope type: unspecified Qualified Code(s): R55 - Syncope and collapse Is this a current diagnosis for this admission?: Yes Plan: Likely due to volume depletion postural hypotension likely due to undiagnosed Parkinson's disease. She was found to be bradycardic, does have history of hypothyroidism but stating that she is compliant with her levothyroxine. TSH 0.06. Patient also takes hydrochlorothiazide lisinopril. On reviewing her medication I noticed that she has 2 bottles of hydrochlorothiazide and lisinopril. Not sure if she accidentally overdosed on her meds. Continue volume resuscitation guided by volume status and vitals, admit to telemetry. CT head negative for any acute abnormalities. Skeletal survey negative for any acute fractures. EEG to rule out an underlying seizure. PT OT ST. (3) Orthostatic hypotension Is this a current diagnosis for this admission?: Yes Plan: As per #1 #2. (4) Acute kidney injury Is this a current diagnosis for this admission?: Yes Plan: Resolved. Prerenal. Fraction excretion of sodium less than 1. Creatinine WNL. Likely combination of prerenal and contrast-induced nephropathy. She had a CT neck with contrast a week ago here at [facility]. Renal ultrasound WNL. Continue volume resuscitation guided by volume status, avoid nephrotoxic meds. (5) Depression Is this a current diagnosis for this admission?: Yes Plan: Denies any suicidal or homicidal ideation. Restart home meds. (6) Hypotension Qualifiers: Hypotension type: other hypotension type Qualified Code(s): I95.89 - Other hypotension Is this a current diagnosis for this admission?: Yes Plan: Likely coming from volume depletion and antihypertensive overdose. Hold antihypertensive meds. Continue volume resuscitation guided by volume status and vitals. (7) Hypothyroidism Qualifiers: Hypothyroidism type: postoperative Qualified Code(s): E89.0 - Postprocedural hypothyroidism Is this a current diagnosis for this admission?: Yes Plan: History of thyroid cancer. Status post surgery. TSH 0.06. T3, T4 WNL. Continue levothyroxine.
[2019-04-10] MEDS: LIDOCAINE 5% (700 MG) TRANSDERMAL ADH..PATCH TP SCH (13:04)
[2019-04-10] MEDS: MIRTAZAPINE 15 MG TABLET PO SCH (21:24)
[2019-04-10] MEDS: ATORVASTATIN CALCIUM 40 MG TABLET PO SCH (21:25)
[2019-04-11] MEDS: IPRATROPIUM/ALBUTEROL 0.5-2.5 MG/3 ML AMPUL NEB SCH ×4 (02:06→20:20)
[2019-04-11 05:16] LABS: ABSOLUTE EOSINOPHILS # (AUTO) 0.3 10^3/uL (0.0-0.6); ABSOLUTE LYMPHOCYTES (AUTO) 1.6 10^3/uL (0.5-4.7); ABSOLUTE MONOCYTES (AUTO) 0.4 10^3/uL (0.1-1.4); ABSOLUTE NEUT (AUTO) 4.2 10^3/uL (1.7-8.2); BASOPHILS % (AUTO) 0.5 % (0-2); EOSINOPHILS % (AUTO) 5.1 % (0-6); HEMATOCRIT 28.7 % (36.0-47.0); HEMOGLOBIN 9.9 g/dL (12.0-15.5); LYMPHOCYTES % (AUTO) 24.1 % (13-45); MEAN CORPUSCULAR HGB CONC 34.4 g/dL (32.0-36.0); MEAN CORPUSCULAR VOLUME 87 fl (80-97); MONOCYTES % (AUTO) 6.6 % (3-13); PLATELET COUNT 155 10^3/uL (150-450); RED BLOOD COUNT 3.28 10^6/uL (3.72-5.28); RED CELL DISTRIBUTION WIDTH 13.5 % (11.5-14.0); SEGMENTED NEUTROPHILS % (AUTO) 63.7 % (42-78); TOTAL CELLS COUNTED % (AUTO) 100 %; WHITE BLOOD COUNT 6.6 10^3/uL (4.0-10.5)
[2019-04-11 05:32] LABS: ANION GAP 5 (5-19); BLOOD UREA NITROGEN 9 mg/dL (7-20); CARBON DIOXIDE 24 mmol/L (22-30); CHLORIDE 115 mmol/L (98-107); GLUCOSE 81 mg/dL (75-110); POTASSIUM 3.8 mmol/L (3.6-5.0); SODIUM 144.3 mmol/L (137-145)
[2019-04-11] MEDS: LEVOTHYROXINE SODIUM 0.075 MG TABLET PO SCH (06:37)
[2019-04-11] MEDS: CARBIDOPA/LEVODOPA 25-100 MG TABLET PO SCH ×2 (06:37→14:53)
[2019-04-11] MEDS: ASPIRIN 81 MG TABLET, CHEWABLE PO SCH (09:53)
[2019-04-11] MEDS: ENOXAPARIN SODIUM INJ 40 MG/0.4 ML DISP.SYRIN SUBCUT SCH (09:53)
[2019-04-11] MEDS: DOCUSATE SODIUM 100 MG CAPSULE PO SCH (09:53)
[2019-04-11] MEDS: MULTIVITAMIN TABLET PO SCH (09:53)
[2019-04-11] MEDS: MEGESTROL ACETATE SUSP 400 MG/10 ML UDCUP PO SCH (09:53)
[2019-04-11] MEDS: LIDOCAINE 5% (700 MG) TRANSDERMAL ADH..PATCH TP SCH (09:53)
[2019-04-11] MEDS: SERTRALINE HCL 50 MG TABLET PO SCH (09:53)
[2019-04-11] MEDS: LUBIPROSTONE 24 MCG CAPSULE PO SCH (09:53)
[2019-04-11] MEDS: FERROUS SULFATE 325 MG TABLET PO SCH (09:53)
[2019-04-11] MEDS: FAMOTIDINE 20 MG TABLET PO SCH ×2 (09:53→22:10)
--- NOTE | 2019-04-11 15:53 | PDOC TRANSFER SUMMARY ---
General Admission Date/PCP: 04/08/19 17:58 OSWALD SILVA, Transfer Date: 04/12/19 - Transfer Diagnosis (1) Syncope Is this a current diagnosis for this admission?: Yes (2) Parkinsonian features Is this a current diagnosis for this admission?: Yes (3) Orthostatic hypotension Is this a current diagnosis for this admission?: Yes (4) Acute kidney injury Is this a current diagnosis for this admission?: Yes (5) Depression Is this a current diagnosis for this admission?: Yes (6) Hypotension Is this a current diagnosis for this admission?: Yes (7) Hypothyroidism Is this a current diagnosis for this admission?: Yes - Transfer Medications Home Medications: Alendronate Sodium [Fosamax 70 mg Tablet] 70 mg PO BURGESS@0600 08/22/18 Docusate Sodium [Colace 100 mg Capsule] 100 mg PO DAILY MDD 2 caps 08/22/18 Levothyroxine Sodium [Synthroid 0.075 mg Tablet] 0.075 mg PO Q6AM 08/22/18 Multivitamin [Tab-A-La (Multiple Vitamin) Tablet] 1 tab PO DAILY 08/22/18 Rosuvastatin Calcium [Crestor 20 mg Tablet] 20 mg PO QHS 08/22/18 Sertraline HCl [Zoloft] 200 mg PO DAILY 04/09/19 Transfer Medications: Current Medications Acetaminophen (Tylenol 325 Mg Tablet) 325 mg PO Q4HP PRN PRN Reason: FEVER >101 Stop: 05/08/19 17:49 Albuterol/Ipratropium (Duoneb 3 Ml Ampul) 3 ml NEB RTQ6 [facility] Stop: 05/08/19 19:59 Last Admin: 04/11/19 14:24 Dose: Not Given Documented by: Alendronate Sodium (Fosamax "Weekly" 35 Mg Tablet) 70 mg PO Burgess@0600 [facility] Stop: 05/15/19 05:59 Aspirin (Aspirin 81 Mg Chewable Tablet) 81 mg PO DAILY [facility] Stop: 05/09/19 09:59 Last Admin: 04/11/19 09:53 Dose: 81 mg Documented by: Atorvastatin Calcium (Lipitor 40 Mg Tablet) 40 mg PO QHS [facility] Stop: 05/08/19 21:59 Last Admin: 04/10/19 21:25 Dose: 40 mg Documented by: Docusate Sodium (Colace 100 Mg Capsule) 100 mg PO DAILY [facility] [place] Stop: 05/09/19 09:59 Last Admin: 04/11/19 09:53 Dose: 100 mg Documented by: Enoxaparin Sodium (Lovenox Inj 40 Mg/0.4 Ml Disp.Syrin) 40 mg SUBCUT DAILY [facility] Stop: 05/09/19 11:59 Last Admin: 04/11/19 09:53 Dose: 40 mg Documented by: Famotidine (Pepcid 20 Mg Tablet) 20 mg PO Q12 [place] Stop: 05/08/19 21:59 Last Admin: 04/11/19 09:53 Dose: 20 mg Documented by: Ferrous Sulfate (Feosol 325 Mg Tablet) 325 mg PO DAILY [facility] Stop: 05/10/19 09:59 Last Admin: 04/11/19 09:53 Dose: 325 mg Documented by: Levothyroxine Sodium (Synthroid 0.075 Mg Tablet) 0.075 mg PO Q6AM [place] Stop: 05/09/19 05:59 Last Admin: 04/11/19 06:37 Dose: 0.075 mg Documented by: Lidocaine (Lidoderm 5% (700 Mg) Transdermal Patch) 2 patch TP DAILY [facility] Stop: 05/10/19 09:59 Last Admin: 04/11/19 09:53 Dose: 2 patch Documented by: Lubiprostone (Amitiza 24 Mcg Capsule) 24 mcg PO DAILY [facility] Stop: 05/09/19 09:59 Last Admin: 04/11/19 09:53 Dose: 24 mcg Documented by: Magnesium Hydroxide (Milk Of Magnesia 30 Ml Udcup) 30 ml PO HSP PRN PRN Reason: FOR CONSTIPATION Stop: 05/08/19 17:49 Megestrol Acetate (Megace Leticia 400 Mg/10 Ml Udcup) 200 mg PO DAILY [facility] [place] Stop: 05/09/19 15:29 Last Admin: 04/11/19 09:53 Dose: 200 mg Documented by: Mirtazapine (Remeron 15 Mg Tablet) 15 mg PO QHS [facility] Stop: 05/09/19 21:59 Last Admin: 04/10/19 21:24 Dose: 15 mg Documented by: Multivitamins (Tab-A-La (Multiple Vitamin) Tablet) 1 tab PO DAILY [facility] Stop: 05/10/19 09:59 Last Admin: 04/11/19 09:53 Dose: 1 tab Documented by: Ondansetron HCl (Zofran Inj/Pf 4 Mg/2 Ml Sdv) 4 mg IV Q4HP PRN PRN Reason: FOR NAUSEA/VOMITING Stop: 05/08/19 17:49 Last Admin: 04/11/19 08:49 Dose: 4 mg Documented by: Oxycodone/Acetaminophen (Percocet 5-325 Mg Tablet) 1 tab PO Q4HP PRN PRN Reason: FOR PAIN SCALE 2-4 Stop: 04/15/19 17:49 Promethazine HCl (Phenergan Inj 25 Mg/1 Ml Vial) 6.25 mg IV Q4HP PRN PRN Reason: FOR NAUSEA/VOMITING Stop: 05/08/19 17:49 Sertraline HCl (Zoloft 50 Mg Tablet) 200 mg PO DAILY [place] Stop: 05/09/19 15:59 Last Admin: 04/11/19 09:53 Dose: 200 mg Documented by: - Allergies Allergies/Adverse Reactions: Penicillins Allergy (Mild, Verified 05/28/18 14:10) Hospital Course Hospital Course: AIDE STEPHENS is a 58 year old female past medical history of thyroid cancer status post surgery, acquired hypothyroidism, hypertension, depression, asthma, osteoporosis, constipation predominant IBS brought to ED EMS after episode of syncope. Per patient this morning she was trying to get her meds, felt lightheaded, lost consciousness, fell to the ground hitting her face, fall was unwitnessed, was confused when regained consciousness, did bite her tongue and did not lose bowel and bladder control. Denies any history of seizure disorder, arrhythmia, CAD, valvular abnormalities, prior syncope, CVA, dehydration, nausea or vomiting. When EMS arrived patient was found to be hypotensive and bradycardic was started on volume resuscitation, in ED she was still hypotensive and bradycardic, and was volume resuscitated. Skeletal imaging and CT head did not show any acute abnormalities. Labs are unremarkable except for elevated creatinine. Patient denies being dehydrated, states that she drinks 3 bottles of water each day, but family states that she might be dehydrated. Did have a CT neck with contrast a week ago which may have had to do with her SAHSHANK. Denies any fever, chills, nausea, vomiting, external bleeding, diarrhea, fever, chest pain, dysuria, hematuria, numbness, tingling or any weakness. rder. (1) Syncope Likely due to volume depletion postural hypotension likely due to undiagnosed Parkinson's disease. She was found to be bradycardic, does have history of hypothyroidism but stating that she is compliant with her levothyroxine. TSH 0.06. Patient also takes hydrochlorothiazide lisinopril. On reviewing her medication I noticed that she has 2 bottles of hydrochlorothiazide and lisinopril. Not sure if she accidentally overdosed on her meds. Continue volume resuscitation guided by volume status and vitals, admit to telemetry. CT head negative for any acute abnormalities. Skeletal survey negative for any acute fractures. EEG to rule out an underlying seizure. PT OT ST. (2) Parkinsonian features Patient has parkinsonian features such as affect flat affect, bradykinesia, cogwheel rigidity and postural hypotension as well as positive family history of Parkinson's disease. Also noted to have postural hypotension even after being properly volume resuscitated. She denies any history of CVA, trauma, underlying neurologic disorder however for the last 3 years she has developed progressively worsening balance problem multiple falls as a result she has been a cane to walk and for the last 6 months she has been a Rollator dependent. As per patient she was evaluated by neurologist and was diagnosed with obstructive sleep apnea. She was given a trial of carbidopa levodopa with very mild improvement. However it was stopped until patient is being evaluated by a neurologist. Unfortunately no neurology consult available at [facility]. Patient will greatly benefit from being evaluated by neurologist as outpatient to be worked up for any neurodegenerative disorder. An appointment is made for her to follow-up with neurologist as an outpatient. (3) Orthostatic hypotension As per #1 #2. (4) Acute kidney injury Resolved. Prerenal. Fraction excretion of sodium less than 1. Creatinine WNL. Likely combination of prerenal and contrast-induced nephropathy. She had a CT neck with contrast a week ago here at [facility]. Renal ultrasound WNL. Continue volume resuscitation guided by volume status, avoid nephrotoxic meds. (5) Depression Denies any suicidal or homicidal ideation. Restart home meds. (6) Hypotension Likely coming from volume depletion and antihypertensive overdose. Hold antihypertensive meds. Continue volume resuscitation guided by volume status and vitals. (7) Hypothyroidism History of thyroid cancer. Status post surgery. TSH 0.06. T3, T4 WNL. Continue levothyroxine. Physical Exam Vital Signs: Temp Pulse Resp BP Pulse Ox 97.6 F 65 16 120/69 98 04/11/19 03:48 04/11/19 14:00 04/11/19 08:20 04/11/19 03:48 04/11/19 08:20 Intake & Output 04/10/19 04/11/19 04/12/19 06:59 06:59 06:59 Intake Total 3055 1480 Output Total 2250 2200 Balance 805 -720 Weight 65.1 kg 65.8 kg General appearance: PRESENT: no acute distress, well-developed, well-nourished Head exam: PRESENT: atraumatic, normocephalic Cardiovascular exam: PRESENT: RRR. ABSENT: diastolic murmur, rubs, systolic murmur GI/Abdominal exam: PRESENT: normal bowel sounds, soft. ABSENT: distended, guarding, mass, organolmegaly, rebound, tenderness Neurological exam: PRESENT: alert, awake, oriented to person, oriented to place, oriented to time, oriented to situation, CN II-XII grossly intact Results Laboratory Results: 04/11/19 04:56 04/11/19 04:56 04/11/19 04/11/19 04:56 04:56 WBC 6.6 RBC 3.28 L Hgb 9.9 L Hct 28.7 L MCV 87 MCH 30.0 MCHC 34.4 RDW 13.5 Plt Count 155 Seg Neutrophils % 63.7 Lymphocytes % 24.1 Monocytes % 6.6 Eosinophils % 5.1 Basophils % 0.5 Absolute Neutrophils 4.2 Absolute Lymphocytes 1.6 Absolute Monocytes 0.4 Absolute Eosinophils 0.3 Absolute Basophils 0.0 Sodium 144.3 Potassium 3.8 Chloride 115 H Carbon Dioxide 24 Anion Gap 5 BUN 9 Creatinine 0.67 Est GFR ( Amer) > 60 Est GFR (Non-Af Amer) > 60 Glucose 81 Calcium 8.0 L Magnesium 2.0 04/08/19 04/08/19 13:30 13:30 Creatine Kinase 71 CK-MB (CK-2) 0.62 Troponin I < 0.012 Impressions: Renal Ultrasound 04/08/19 00:00 IMPRESSION: 1. Normal renal sonogram. Chest X-Ray 04/08/19 14:50 IMPRESSION: Cardiomegaly without acute abnormality of the lungs in AP projection. Cervical Spine CT 04/08/19 14:51 IMPRESSION: CHRONIC DEGENERATIVE CHANGES. NO ACUTE FINDINGS. Head CT 04/08/19 14:51 IMPRESSION: No acute intracranial findings. EVIDENCE OF ACUTE STROKE: NO. Facial Bones CT 04/08/19 14:58 IMPRESSION: No fracture. Pelvis X-Ray 04/08/19 15:04 IMPRESSION: No fracture or dislocation of the pelvis or proximal femurs on single AP radiograph. Please note that plain radiographs are insensitive for hip or pelvic fracture. Shoulder X-Ray 04/08/19 15:04 IMPRESSION: Osteopenia without fracture or dislocation of the left shoulder.
--- NOTE | 2019-04-11 16:26 | PDOC PROGRESS REPORT ---
Subjective Progress Note for:: 04/11/19 Subjective:: AIDE STEPHENS is a 58 year old female past medical history of thyroid cancer status post surgery, acquired hypothyroidism, hypertension, depression, asthma, osteoporosis, constipation predominant IBS brought to ED EMS after episode of syncope. Per patient this morning she was trying to get her meds, felt lightheaded, lost consciousness, fell to the ground hitting her face, fall was unwitnessed, was confused when regained consciousness, did bite her tongue and did not lose bowel and bladder control. Denies any history of seizure disorder, arrhythmia, CAD, valvular abnormalities, prior syncope, CVA, dehydration, nausea or vomiting. When EMS arrived patient was found to be hypotensive and bradycardic was started on volume resuscitation, in ED she was still hypotensive and bradycardic, and was volume resuscitated. Skeletal imaging and CT head did not show any acute abnormalities. Labs are unremarkable except for elevated creatinine. Patient denies being dehydrated, states that she drinks 3 bottles of water each day, but family states that she might be dehydrated. Did have a CT neck with contrast a week ago which may have had to do with her SHASHANK. Denies any fever, chills, nausea, vomiting, external bleeding, diarrhea, fever, chest pain, dysuria, hematuria, numbness, tingling or any weakness. 04/10/2019. No acute events overnight, patient complaining of bilateral shoulder, pain otherwise no complaints. Denying any fever, chills, nausea, vomiting, diarrhea, constipation or any urinary symptoms. 04/11/2019. No acute events overnight. Patient reported mild improvement of her symptoms, still complains of weakness, physical therapy saw her today with hematemesis, recommendation is rehab. Denies any fever, chills, nausea, vomiting, diarrhea or any urinary symptoms. Reason For Visit: SYNCOPE,SHASHANK,HYPOTENSION Physical Exam Vital Signs: Temp Pulse Resp BP Pulse Ox 97.6 F 65 16 120/69 98 04/11/19 03:48 04/11/19 14:00 04/11/19 08:20 04/11/19 03:48 04/11/19 08:20 Intake & Output 04/10/19 04/11/19 04/12/19 06:59 06:59 06:59 Intake Total 3055 1480 Output Total 2250 2200 Balance 805 -720 Weight 65.1 kg 65.8 kg General appearance: PRESENT: no acute distress, well-developed, well-nourished Head exam: PRESENT: atraumatic, normocephalic Respiratory exam: PRESENT: clear to auscultation katina. ABSENT: rales, rhonchi, wheezes Cardiovascular exam: PRESENT: RRR. ABSENT: diastolic murmur, rubs, systolic murmur GI/Abdominal exam: PRESENT: normal bowel sounds, soft. ABSENT: distended, guarding, mass, organolmegaly, rebound, tenderness Extremities exam: PRESENT: tenderness - Bilateral shoulder, bilateral lower extremity. Neurological exam: PRESENT: alert, awake, oriented to person, oriented to place, oriented to time, oriented to situation, abnormal gait, CN II-XII grossly intact Results Laboratory Results: 04/11/19 04:56 04/11/19 04:56 04/11/19 04/11/19 04:56 04:56 WBC 6.6 RBC 3.28 L Hgb 9.9 L Hct 28.7 L MCV 87 MCH 30.0 MCHC 34.4 RDW 13.5 Plt Count 155 Seg Neutrophils % 63.7 Lymphocytes % 24.1 Monocytes % 6.6 Eosinophils % 5.1 Basophils % 0.5 Absolute Neutrophils 4.2 Absolute Lymphocytes 1.6 Absolute Monocytes 0.4 Absolute Eosinophils 0.3 Absolute Basophils 0.0 Sodium 144.3 Potassium 3.8 Chloride 115 H Carbon Dioxide 24 Anion Gap 5 BUN 9 Creatinine 0.67 Est GFR ( Amer) > 60 Est GFR (Non-Af Amer) > 60 Glucose 81 Calcium 8.0 L Magnesium 2.0 04/08/19 04/08/19 13:30 13:30 Creatine Kinase 71 CK-MB (CK-2) 0.62 Troponin I < 0.012 Impressions: Renal Ultrasound 04/08/19 00:00 IMPRESSION: 1. Normal renal sonogram. Chest X-Ray 04/08/19 14:50 IMPRESSION: Cardiomegaly without acute abnormality of the lungs in AP proje ction. Cervical Spine CT 04/08/19 14:51 IMPRESSION: CHRONIC DEGENERATIVE CHANGES. NO ACUTE FINDINGS. Head CT 04/08/19 14:51 IMPRESSION: No acute intracranial findings. EVIDENCE OF ACUTE STROKE: NO. Facial Bones CT 04/08/19 14:58 IMPRESSION: No fracture. Pelvis X-Ray 04/08/19 15:04 IMPRESSION: No fracture or dislocation of the pelvis or proximal femurs on single AP radiograph. Please note that plain radiographs are insensitive for hip or pelvic fracture. Shoulder X-Ray 04/08/19 15:04 IMPRESSION: Osteopenia without fracture or dislocation of the left shoulder. Assessment and Plan - Diagnosis (1) Parkinsonian features Is this a current diagnosis for this admission?: Yes Plan: Patient has parkinsonian features such as affect flat affect, bradykinesia, cogwheel rigidity and postural hypotension as well as positive family history of Parkinson's disease. Also noted to have postural hypotension even after being properly volume resuscitated. She denies any history of CVA, trauma, underlying neurologic disorder however f or the last 3 years she has developed progressively worsening balance problem multiple falls as a result she has been a cane to walk and for the last 6 months she has been a Rollator dependent. As per patient she was evaluated by neurologist and was diagnosed with obstructive sleep apnea. Since being started on carbidopa-levodopa yesterday her rigidity has improved mildly. Unfortunately no neurology consult available at [facility]. Patient will greatly benefit from being evaluated by neurologist as outpatient to be worked up for any neurodegenerative disorder. (2) Syncope Qualifiers: Syncope type: unspecified Qualified Code(s): R55 - Syncope and collapse Is this a current diagnosis for this admission?: Yes Plan: No recurrence. Vitals have been stable. Likely due to volume depletion postural hypotension vs undiagnosed Parkinson's disease. She was found to be bradycardic, does have history of hypothyroidism but stating that she is compliant with her levothyroxine. TSH 0.06. Patient also takes hydrochlorothiazide lisinopril. On reviewing her medication I noticed that she has 2 bottles of hydrochlorothiazide and lisinopril. Not sure if she accidentally overdosed on her meds. Continue volume resuscitation guided by volume status and vitals, admit to telemetry. CT head negative for any acute abnormalities. Skeletal survey negative for any acute fractures. EEG to rule out an underlying seizure. PT OT ST. (3) Orthostatic hypotension Is this a current diagnosis for this admission?: Yes Plan: As per #1 #2. (4) Acute kidney injury Is this a current diagnosis for this admission?: Yes Plan: Resolved. Prerenal. Fraction excretion of sodium less than 1. Creatinine WNL. Likely combination of prerenal and contrast-induced nephropathy. She had a CT neck with contrast a week ago here at [facility]. Renal ultrasound WNL. Continue volume resuscitation guided by volume status, avoid nephrotoxic meds. (5) Depression Is this a current diagnosis for this admission?: Yes Plan: Denies any suicidal or homicidal ideation. Restart home meds. (6) Hypotension Qualifiers: Hypotension type: other hypotension type Qualified Code(s): I95.89 - Other hypotension Is this a current diagnosis for this admission?: Yes Plan: Resolved. Likely coming from volume depletion and antihypertensive overdose. Hold antihypertensive meds. Continue volume resuscitation guided by volume status and vitals. (7) Hypothyroidism Qualifiers: Hypothyroidism type: postoperative Qualified Code(s): E89.0 - Postprocedural hypothyroidism Is this a current diagnosis for this admission?: Yes Plan: History of thyroid cancer. Status post surgery. TSH 0.06. T3, T4 WNL. Continue levothyroxine. (8) Physical deconditioning Is this a current diagnosis for this admission?: Yes Plan: Chronic. Elevated by PT and patient. Rehab recommended. Will be transferred to rehab.
[2019-04-11] MEDS: ATORVASTATIN CALCIUM 40 MG TABLET PO SCH (22:10)
[2019-04-11] MEDS: MIRTAZAPINE 15 MG TABLET PO SCH (22:10)
[2019-04-12] MEDS: IPRATROPIUM/ALBUTEROL 0.5-2.5 MG/3 ML AMPUL NEB SCH ×2 (02:12→08:25)
[2019-04-12] MEDS: LEVOTHYROXINE SODIUM 0.075 MG TABLET PO SCH (06:24)
[2019-04-12] MEDS: ASPIRIN 81 MG TABLET, CHEWABLE PO SCH (09:01)
[2019-04-12] MEDS: LUBIPROSTONE 24 MCG CAPSULE PO SCH (09:01)
[2019-04-12] MEDS: SERTRALINE HCL 50 MG TABLET PO SCH (09:01)
[2019-04-12] MEDS: MEGESTROL ACETATE SUSP 400 MG/10 ML UDCUP PO SCH (09:01)
[2019-04-12] MEDS: FERROUS SULFATE 325 MG TABLET PO SCH (09:01)
[2019-04-12] MEDS: MULTIVITAMIN TABLET PO SCH (09:01)
[2019-04-12] MEDS: FAMOTIDINE 20 MG TABLET PO SCH (09:02)
[2019-04-12] MEDS: ENOXAPARIN SODIUM INJ 40 MG/0.4 ML DISP.SYRIN SUBCUT SCH (09:02)
[2019-04-12] MEDS: DOCUSATE SODIUM 100 MG CAPSULE PO SCH (09:02)
[2019-04-12] MEDS: LIDOCAINE 5% (700 MG) TRANSDERMAL ADH..PATCH TP SCH (09:02)
[2019-04-12 12:29] VITALS: BP 120/68
== END 2019-04-12 13:43 | DRG 312 ==
LOC: ER 14:12 → EH 17:58 → 3W 20:36
PROVIDERS: ADMIT Internal Medicine; ATTEND Internal Medicine
DX: I95.1 Orthostatic hypotension (principal); N17.9 Acute kidney failure, unspecified; R55 Syncope and collapse; F32.9 Major depressive disorder, single episode, unspecified; E89.0 Postprocedural hypothyroidism; I10 Essential (primary) hypertension; K58.1 Irritable bowel syndrome with constipation; S09.90XA Unspecified injury of head, initial encounter; W19.XXXA Unspecified fall, initial encounter; G47.33 Obstructive sleep apnea (adult) (pediatric); M81.0 Age-related osteoporosis without current pathological fracture; E78.5 Hyperlipidemia, unspecified; K21.9 Gastro-esophageal reflux disease without esophagitis; E86.9 Volume depletion, unspecified; G20 Parkinson's disease; Z79.899 Other long term (current) drug therapy; Z79.890 Hormone replacement therapy; Z88.0 Allergy status to penicillin; Z85.850 Personal history of malignant neoplasm of thyroid
CPT/HCPCS: 36415; 70450; 70486; 71045; 72125; 72170; 76770; 80048; 80053; 80307; 81001; 82533; 82550; 82553; 82570; 82607; 82728; 82746; 82803; 82962; 83540; 83550; 83605; 83735; 84300; 84439; 84443; 84481; 84484; 85025; 85045; 85610; 87040; 87086; 93005; 93010; 94640; 95819; 96360; 99291; C1751; J0515; J0610; J1650; J2405; J3490; J7030; J7620

== ENCOUNTER → 2019-09-11 | Outpatient (CLI) | payer MEDICARE, MEDICAID ==
--- NOTE | 2019-09-11 13:50 | WOMENS IMAGING REPORT ---
EXAM DESCRIPTION: BILAT SCREENING MAMMO W/CAD COMPLETED DATE/TIME: 09/11/2019 11:14 am REASON FOR STUDY: Z12.31 SCREENING MAMMO Z12.31 ENCNTR SCREEN MAMMOGRAM FOR MALIGNANT NEOPLASM OF B RE COMPARISON: 2017 and subsequent. EXAM PARAMETERS: Standard craniocaudal and mediolateral oblique views of each breast recorded using digital acquisition. Read with the assistance of CAD. .[employer] Version 9.2 LIMITATIONS: Positioning difficulties. Left MLO in particular is difficult suboptimal. This is chr onic. Best images possible. FINDINGS: No suspicious masses, suspicious calcifications or architectural distortion. No areas of c oncern. IMPRESSION: Negative MAMMOGRAM. BIRADS 1 BREAST DENSITY: b. There are scattered areas of fibroglandular density. BIRAD: ASSESSMENT: 1 NEGATIVE RECOMMENDATION: ROUTINE SCREENING COMMENT: The patient has been notified of the results by letter per MQSA requirements. Additional no tification policies are in place for contacting patient with suspicious or incomplete findings. Quality ID #[id number]: The [employer] recommends an annual screening mammogram for women aged 40 years or over. This facility utilizes a reminder system to ensure that all patients receive reminder letters, and/or direct phone calls for appointments. This includes reminders for routine scr eening mammograms, diagnostic mammograms, or other Breast Imaging Interventions when appropriate. Th is patient will be placed in the appropriate reminder system. TECHNICAL DOCUMENTATION: FINDING NUMBER: (1) ASSESSMENT: (1) JOB ID: [id number] [employer]- All Rights Reserved Reading location - IP/workstation name: [email or web address]
== END ==
LOC: WI 10:45
PROVIDERS: ATTEND Family Medicine
DX: Z12.31 Encounter for screening mammogram for malignant neoplasm of breast (principal)
CPT/HCPCS: 77067

== ENCOUNTER 2020-07-23 12:35 | Day surgery (SDC) | payer MEDICARE, MEDICAID ==
[~2020-07-23 12:35] MED LIST: CHONDR SU A NA/HYALUR INTRAOC KIT (SURGICARE) ONE; EPINEPHRINE INJ/PF 1 MG/1 ML AMPULE ONE; LIDOCAINE 1%/PHENYLEPHRINE 1.5% 1 ML VIAL ONE
[2020-07-23] MEDS: TETRACAINE HCL 0.5% OPH SOLN 4 ML OD PRN ×3 (12:57→13:31)
[2020-07-23] MEDS: KETOROLAC TROMETHAMINE 0.45% 4 DROP/0.4 ML DROPERETTE OD PRN ×2 (12:58→13:24)
[2020-07-23] MEDS: TROPICAMIDE 1% OPH SOLN 15 ML OD PRN ×3 (12:58→13:24)
[2020-07-23] MEDS: CYCLOPENTOLATE 0.2%/PHENYLEPHRINE 1% OPH SOLN 2 ML OD PRN ×3 (12:58→13:24)
[2020-07-23] MEDS: BESIFLOXACIN HCL 0.6% OPH SUSP 5 ML BOTTLE OD PRN ×3 (12:58→13:48)
[2020-07-23] MEDS ORDERED: MIDAZOLAM 2 MG/2 ML INJ ONE (13:15)
[2020-07-23] MEDS ORDERED: FENTANYL CITRATE INJ/PF 100 MCG/2 ML AMPUL ONE (13:15)
[2020-07-23] MEDS ORDERED: ONDANSETRON HCL INJ/PF 4 MG/2 ML SDV ONE (13:15)
[2020-07-23] MEDS: DORZOLAMIDE HCL 2%/TIMOLOL MALEAT 0.5% OPH SOLN 10 ML OD PRN ×2 (13:48)
[2020-07-23] MEDS: PREDNISOLONE ACETATE 1% OPH SUSP 5 ML OD PRN ×2 (13:48)
--- NOTE | 2020-07-23 14:55 | Operative Report ---
Operative Report-[facility] Operative Report: DATE OF SURGERY: July 23, 2020 PREOPERATIVE DIAGNOSIS: NUCLEAR CATARACT, RIGHT EYE. POSTOPERATIVE DIAGNOSIS: NUCLEAR CATARACT, RIGHT EYE. PROCEDURE PERFORMED: PHACOEMULSIFICATION WITH POSTERIOR CHAMBER INTRAOCULAR LENS IMPLANT, RIGHT EYE. SURGEON: James Steele DO MEDICATIONS AND ANESTHESIA: Versed: IV Versed Tetracaine drops: 1 to 2 drops given as needed COMPLICATION: None INDICATIONS FOR SURGERY: Medical necessity: Best corrected visual acuity worse than 20/40 secondary to cataracts with impairment of ability to carry out needs or desired activities, blurred vision, visual distortion, reduced contrast sensitivity and/or glare with association functional impairment and supporting documentation/testing, and cataracts causing symptomatic impairment of visual functions not corrected with tolerable changes in glasses or contact lenses interfering with activities of daily life. PROCEDURE: Consent: The risks, benefits and alternatives of this procedures was discussed with the patient. The patient read and signed the consent forms, was identified and was seated in the exam chair. IOL: MX 60 E 20.0 IOL Diopters: Phacoemulsification with posterior chamber intraocular lens implant: The face was prepped with 5% povidone iodine solution, and a few drops of 5% povidone iodine solution was instilled into the inferior fornix. A non-fenestrated drape was placed over the eye and the lids were parted with the speculum. A paracentesis was made with a 15 degree blade, and 1% lidocaine MPF followed by viscoelastic was injected into the anterior chamber. A 2.4 mm metal micro- keratome was used to create a temporal clear corneal incision. A circular anterior capsulorrhexis was created, followed by hydro-dissection and hydro- delineation. The phacoemulsification hand piece was inserted and the nucleus was removed with the Phaco chop technique. The irrigation-aspiration hand piece was used to remove the residual cortex, and vacuum the posterior capsule. The capsular bag was inflated and viscoelastic and the above-mentioned IOL was injected into the eye with care to insert both leaning and trailing haptics in the capsular bag. The irrigation/aspiration hand piece was reinserted to remove residual viscoelastic from the capsular bag and anterior chamber. The corneal incision was hydrated, and anterior chamber was inflated with sterile BSS via the paracentesis site, and found to be watertight. Postop medication: 1 drop of prednisolone into operative by followed by 1 drop of Cosopt into operative eye followed by 1 drop of Besivance intraoperative by other:
== END 2020-07-23 14:36 ==
LOC: SC 12:35
PROVIDERS: ATTEND Ophthalmology
DX: H25.11 Age-related nuclear cataract, right eye (principal); H26.9 Unspecified cataract; J45.909 Unspecified asthma, uncomplicated; I10 Essential (primary) hypertension; G20 Parkinson's disease; E78.00 Pure hypercholesterolemia, unspecified; E03.9 Hypothyroidism, unspecified; F32.9 Major depressive disorder, single episode, unspecified; Z79.82 Long term (current) use of aspirin; Z79.899 Other long term (current) drug therapy; Z79.891 Long term (current) use of opiate analgesic; Z87.891 Personal history of nicotine dependence; Z88.0 Allergy status to penicillin
CPT/HCPCS: 66984; V2632; J2250; J3490 ×2; A9270; J0171; J2405; J3010

== ENCOUNTER 2020-08-06 10:00 | Day surgery (SDC) | payer MEDICARE, MEDICAID ==
[~2020-08-06 10:00] MED LIST changes: +DORZOLAMIDE HCL 2%/TIMOLOL MALEAT 0.5% OPH SOLN 10 ML OS PRN; +PREDNISOLONE ACETATE 1% OPH SUSP 5 ML OS PRN
[2020-08-06] MEDS: BESIFLOXACIN HCL 0.6% OPH SUSP 5 ML BOTTLE OS PRN ×4 (10:13→11:12)
[2020-08-06] MEDS: KETOROLAC TROMETHAMINE 0.45% 4 DROP/0.4 ML DROPERETTE OS PRN ×2 (10:13→10:21)
[2020-08-06] MEDS: CYCLOPENTOLATE 0.2%/PHENYLEPHRINE 1% OPH SOLN 2 ML OS PRN ×4 (10:13→10:45)
[2020-08-06] MEDS: TROPICAMIDE 1% OPH SOLN 15 ML OS PRN ×4 (10:13→10:45)
[2020-08-06] MEDS: TETRACAINE HCL 0.5% OPH SOLN 4 ML OS PRN ×4 (10:13→10:46)
[2020-08-06] MEDS ORDERED: MIDAZOLAM 2 MG/2 ML INJ ONE (10:36)
[2020-08-06] MEDS ORDERED: FENTANYL CITRATE INJ/PF 100 MCG/2 ML AMPUL ONE (10:36)
--- NOTE | 2020-08-06 14:28 | Operative Report ---
Operative Report-[facility] Operative Report: DATE OF SURGERY: August 06, 2020 PREOPERATIVE DIAGNOSIS: NUCLEAR CATARACT, LEFT EYE. POSTOPERATIVE DIAGNOSIS: NUCLEAR CATARACT, LEFT EYE. PROCEDURE PERFORMED: PHACOEMULSIFICATION WITH POSTERIOR CHAMBER INTRAOCULAR LENS IMPLANT, LEFT EYE. SURGEON: James Steele DO MEDICATIONS AND ANESTHESIA: Versed: IV Versed Tetracaine drops: 1 to 2 drops given as needed COMPLICATION: None INDICATIONS FOR SURGERY: Medical necessity: Best corrected visual acuity worse than 20/40 secondary to cataracts with impairment of ability to carry out needs or desired activities, blurred vision, visual distortion, reduced contrast sensitivity and/or glare with association functional impairment and supporting documentation/testing, and cataracts causing symptomatic impairment of visual functions not corrected with tolerable changes in glasses or contact lenses interfering with activities of daily life. PROCEDURE: Consent: The risks, benefits and alternatives of this procedures was discussed with the patient. The patient read and signed the consent forms, was identified and was seated in the exam chair. IOL: MX 60 E 19.5 IOL Diopters: Phacoemulsification with posterior chamber intraocular lens implant: The face was prepped with 5% povidone iodine solution, and a few drops of 5% povidone iodine solution was instilled into the inferior fornix. A non-fenestrated drape was placed over the eye and the lids were parted with the speculum. A paracentesis was made with a 15 degree blade, and 1% lidocaine MPF followed by viscoelastic was injected into the anterior chamber. A 2.4 mm metal micro- keratome was used to create a temporal clear corneal incision. A circular anterior capsulorrhexis was created, followed by hydro-dissection and hydro- delineation. The phacoemulsification hand piece was inserted and the nucleus was removed with the Phaco chop technique. The irrigation-aspiration hand piece was used to remove the residual cortex, and vacuum the posterior capsule. The capsular bag was inflated and viscoelastic and the above-mentioned IOL was injected into the eye with care to insert both leaning and trailing haptics in the capsular bag. The irrigation/aspiration hand piece was reinserted to remove residual viscoelastic from the capsular bag and anterior chamber. The corneal incision was hydrated, and anterior chamber was inflated with sterile BSS via the paracentesis site, and found to be watertight. Postop medication:1 drop of prednisolone into operative by followed by 1 drop of Cosopt into operative eye followed by 1 drop of Besivance intraoperative by Other:
== END 2020-08-06 11:44 ==
LOC: SC 10:00
PROVIDERS: ATTEND Ophthalmology
DX: H25.12 Age-related nuclear cataract, left eye (principal); Z98.41 Cataract extraction status, right eye; J45.909 Unspecified asthma, uncomplicated; I10 Essential (primary) hypertension; E78.00 Pure hypercholesterolemia, unspecified; E07.9 Disorder of thyroid, unspecified; G20 Parkinson's disease; Z79.82 Long term (current) use of aspirin; G47.33 Obstructive sleep apnea (adult) (pediatric); R01.1 Cardiac murmur, unspecified; Z87.891 Personal history of nicotine dependence; Z86.73 Personal history of transient ischemic attack (TIA), and cerebral infarction without residual deficits; D64.9 Anemia, unspecified
CPT/HCPCS: 66984; J2250; J3490 ×2; A9270; J0171; J3010; V2632